=== PATIENT | male | born 1940 | race Caucasian/White ===

== ENCOUNTER 2016-06-22 22:30 | Inpatient (IN) | payer OTHER ==
[~2016-06-22] VITALS: Ht 170.2 cm; Wt 68.9 kg
[~2016-06-22 22:30] MED LIST: ALBUTEROL0.09 MG/A1 INH; AMOXICILLIN500 MG PO; BACLOFEN20 M1 PO; BOOST HIGH PRO237 ML PO; CRESTOR20 M2 PO; DOXYCYCLINE HY100 M2 PO; ENSURE HIGH PR PO; EPIPEN 2-PAK1 MG/ML IM; GLUCOSAMINE &1 EAC1 PO; HYDROMORPHONE HC2 M1 PO; LAMICTAL25 M1 PO; MORPHINE S10 MG/5 M2 PO; MULTI-DAY VITA1 EACH PO; PREDNISONE50 MG PO; TYLENOL325 M1 PO; VITAMIN D31000 UNI2 PO
--- NOTE | 2016-06-22 23:09 | ED GI/GU/ABDOMINAL COMPLAINT ---
History of Present Illness General Chief Complaint: Abdominal Pain/Flank Pain Stated Complaint: LOWER ABD PAIN Source: patient, old records Exam Limitations: no limitations Vital Signs & Intake/Output Vital Signs & Intake/Output Vital Signs Date Time Temp Pulse Resp B/P Pulse O2 O2 Flow FiO2 Ox Delivery Rate 06/23 0247 100.4 64 18 174/77 97 Room Air 06/22 2343 98 Room Air 06/22 2247 99.2 69 32 171/96 99 Room Air ED Intake and Output 06/23 0000 06/22 1200 Intake Total Output Total Balance Patient 152 lb Weight Allergies Coded Allergies: Penicillins (Severe, ANAPHYLAXIS 12/12/15) amoxicillin (Severe, ANAPHYLAXIS 12/12/15) carbamazepine (From TEGRETOL) (Severe, ANAPHYLAXIS 12/12/15) clindamycin (Intermediate, HIVES 12/12/15) Triage Note: PT TO ED C/O RT GROIN PAIN. PMH OF INGUINAL HERNIA, NOT DOING ANYTHING ABOUT IT AT THIS TIME R/T CHEMO TREATMENTS FOR RT JAW CANCER. DX WITH DIVERTICULITIS. LAST BM WAS YESTERDAY. HERNIA LARGER THAN USUAL. Triage Nurses Notes Reviewed? 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 Patient denies any excessive physical activity. Last bowel movement was yesterday no blood no melena noted. (TED GUERRERO) Reconcile Medications Dexamethasone 4 MG TABLET 4 TAB PO DAILY CHRONIC PAIN (Reported) Fentanyl 25 MCG/HOUR PATCH.TD72 1 PAT TOP Q3D CHRONIC PAIN (Reported) Furosemide (Lasix) 40 MG TABLET 1 TAB PO DAILY EDEMA (Reported) Gabapentin 100 MG CAPSULE 1 CAP PO TID CHRONIC PAIN (Reported) Lactose-Reduced Food (Boost High Protein) (Unknown Strength) LIQUID (Unknown Dose) PO DAILY SUPPLEMENT (Reported) Morphine Sulfate (Morphine Sulfate Elixir 10mg/5ml) 10 MG/5 ML SOLUTION 2.5-5 ML PO PRN PAIN (Reported) Rosuvastatin Calcium (Crestor) 20 MG TABLET 0.5 TAB PO EOD CHOLESTEROL ( Reported) (MICHEAL GU,JASON) Past History Travel History Traveled to [place] past 21 day No Medical History Any Pertinent Medical History? 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 No (TED GUERRERO) Review of Systems Review of Systems Constitutional: Reports: no symptoms. EENTM: Reports: no symptoms. Respiratory: Reports: no symptoms. Cardiovascular: Reports: no symptoms. GI: Reports: see HPI, abdominal pain. Genitourinary: Reports: no symptoms. Musculoskeletal: Reports: no symptoms. Skin: Reports: no symptoms. Neurological/Psychological: Reports: no symptoms. Hematologic/Endocrine: Reports: no symptoms. Immunologic/Allergic: Reports: no symptoms. All Other Systems: Reviewed and Negative (TED GUERRERO) Physical Exam Physical Exam General Appearance: severe distress Gastrointestinal: normal bowel sounds, soft, GENERALIZED POINT TENDERNESS NOTED Comments: Head-noted right facial swelling and mass Mouth -unable to visualize posterior pharynx due to significant trismus Neck: Supple, no lymphadenopathy, normal range of motion without pain or tenderness Back: Nontender, no CVA tenderness. Cardiovascular: Regular rate and rhythms no murmurs rubs or gallops, normal JVP Respiratory: Chest nontender. No respiratory distress.breath sounds clear to auscultation bilaterally Extremity: No edema, no calf tenderness to palpation, normal and equal pulses. Neuro: Alert oriented x3, motor sensory normal, Skin: No appreciable rash on exposed skin, skin is warm and dry. Psych: Mood and affect is normal, memory and judgment is normal. Core Measures ACS in differential dx? No Severe Sepsis Present: No Septic Shock Present: No (TED GUERRERO) Progress Differential Diagnosis: AAA, AMI, appendicitis, biliary colic, bowel obstruction , colon cancer, cholecystitis, diverticulitis, epididymitis, esophageal varices, gastritis, hepatitis, hernia, hemorrhoids, ischemic bowel, inflamm bowel dis, Gracy-Chance tear, orchitis, pancreatitis, prostatitis, peptic ulcer, PUD/GERD, perforated viscous, pyelonephritis, SBO, STD, testicular torsion, ureterolithiasis, urinary retention, urethritis, UTI/pyelo Plan of Care: Orders Procedure Date/time Status Nothing by Mouth 06/23 B Active Add-on Test (ER Only) 06/23 015 Active TYPE & SCREEN (NOT X-MATCH) 06/23 015 Complete Add-on Test (ER Only) 06/23 0113 Active Add-on Test (ER Only) 06/23 004 Active TROPONIN LEVEL 06/23 40 Active PARTIAL THROMBOPLASTIN TIME 06/22 2335 Complete PROTHROMBIN TIME 06/22 2335 Complete TROPONIN LEVEL 06/22 2334 Complete LACTIC ACID 06/22 2257 Complete COMPREHENSIVE METABOLIC PANEL 06/22 2257 Complete CBC WITHOUT DIFFERENTIAL 06/22 2257 Complete EKG 06/22 2257 Active Laboratory Tests 06/23/16157: Lactic Acid Cancelled 06/22/162335: PT 11.0, INR 1.05, APTT 39 H 06/22/162334: Anion Gap 7, Estimated GFR > 60, BUN/Creatinine Ratio 41.7 H, Glucose 79, Lactic Acid 1.0, Calcium 9.1, Total Bilirubin 0.9, AST 30, ALT 49, Alkaline Phosphatase 67, Troponin I < 0.01, Total Protein 6.3, Albumin 3.5, Globulin 2.8, Albumin/Globulin Ratio 1.3, CBC w Diff MAN DIFF ORDERED, RBC 4.51 L, MCV 90.7, MCH 29.9, RDW 17.0 H, MPV 8.4, Gran % 84.7 H, Lymphocytes % 11.9 L, Monocytes % 3.1, Eosinophils % 0.1, Basophils % 0.2, Absolute Granulocytes 5.4, Absolute Lymphocytes 0.8 L, Absolute Monocytes 0.2, Absolute Eosinophils 0, Absolute Basophils 0, Platelet Estimate ADEQUATE, Ovalocytes 1+, PUBS MCHC 32.9 L 06/22/162320: Troponin I Cancelled Patient currently is in agony on initial examination. Patient was given IV Dilaudid with minimal relief of symptoms of pain. It was noted by radiologist of significant critical findings of free air surgical PA and surgeon Dr. Hartley are aware of patient's critical status. 06/23/2016 1:50:41 AM surgical PA currently is consulting patient Anesthesia currently is consulting patient for concerns of intubation due to patient's past medical history of oral cancer Patient was given another milligram of IV Dilaudid. Nausea is under control. Rocephin and Flagyl were administered. Discussed handoff with Dr. BURTON (BROOKE HECTOR,TED) 3:26 AM PATIENT TO OR (MICHEAL GU,JASON) Diagnostic Imaging: Viewed by Me: CT Scan. Discussed w/RAD: CT Scan. Radiology Impression: acute abnormality Initial ED EKG: ACCELERATED JUNCTION RHYTHM 74 BPM Hand-Off Endorsed To: JASON BURTON MD Endorsed Time: 0152 Pending: consult Comments: PATIENT: DONG MACIAS PRESENT AGE: 76 PATIENT ACCOUNT NO: [id number] : 42 LOCATION: [facility] ORDERING PHYSICIAN: TED HECTOR SERVICE DATE: 06/22/16 EXAM TYPE: CAT - CT ABD & PELVIS W IV CONTRAST EXAMINATION: CT ABDOMEN AND PELVIS WITH CONTRAST CLINICAL INFORMATION: Right lower quadrant and inguinal pain. History of squamous cell cancer of the oral cavity. COMPARISON: CT scan abdomen pelvis 12/12/2015. PET/CT exam 06/12/2015 TECHNIQUE: Multidetector volumetric imaging was performed of the abdomen and pelvis after the IV administration of 93 mL of Optiray 320 intravenous contrast. Sagittal and coronal reformatted images were obtained on the technologist's workstation. DLP: 422.74 mGy-cm FINDINGS: LUNG BASES: 1.8 cm in lobular nodule at the left lung base. This is increased in size since CAT scan of 12/12/2015 where this nodule measured 0.6 cm. LIVER, GALLBLADDER, AND BILIARY TREE: 9 mm hypodensity anterior left lobe of liver. 1.3 cm hypodensity at the dome right lobe of liver with small peripheral calcification. These are unchanged since CAT scan of 12/22/2015. Multiple small hypodense gallstones within the gallbladder. No edema of the gallbladder wall. The extrahepatic CBD measures 0.6 cm. No stones seen within the bile ducts. PANCREAS: 1.2 cm hypodense lesion at the head neck junction of the pancreas and a 1.4 cm cyst at the uncinate process of the pancreas, both unchanged since PET/CT of 06/12/2015. No pancreatic duct dilatation. SPLEEN: Unremarkable. ADRENAL GLANDS: Unremarkable. KIDNEYS AND URETERS: The kidneys are normal in size, shape, and attenuation. No hydronephrosis, hydroureter, or calculi seen. No perinephric stranding. BLADDER: Unremarkable. GASTROINTESTINAL TRACT: Marked diverticulosis of sigmoid colon and left colon with scattered diverticula in the right colon. No diverticulitis. No focal bowel wall thickening or edema. There is a right inguinal hernia. This contains an loop of nonobstructive small bowel. No dilatation of the small bowel. MESENTERY: There is free air in the abdomen. Free air under the diaphragm and anterior abdominal mesentery. Most of the air is in the upper abdomen. No abscess. There is a small amount of haziness and fluid of the mid mesentery. ABDOMINAL WALL: No significant hernia is appreciated. LYMPH NODES: Normal. VASCULAR: Stented abdominal aortic aneurysm unchanged since prior CAT scan 12/12/2015. No abnormal enhancement. No evidence of aneurysmal leak. [place] aorta is thrombosed measuring 6.1 cm transverse maximal diameter unchanged since CAT scan of 12/12/2015. PELVIC VISCERA: Prostate measures 5.8 cm transverse. OSSEOUS STRUCTURES: Multilevel degenerative change of the spine with disc height narrowing and endplate spurs and facet joint arthrosis. IMPRESSION: 1. There is free air in the abdomen. There is a small amount of fluid and haziness of the mid mesentery but no abscess seen. There is marked diverticulosis of left colon and sigmoid but no specific bowel wall thickening to suggest a diverticulitis. There is a right inguinal hernia containing a nonobstructed small bowel loops without bowel wall thickening or edema. The source of the bowel perforation therefore is uncertain whether its related to the colonic diverticulosis or the small bowel hernia. 2. Cholelithiasis. 3. Stent abdominal aortic aneurysm. 4. Increasing size of lobular mass at the left lower lobe. Follow-up CT of chest of contrast would be helpful. This is suspected for metastatic disease given patient's history of squamous cell cancer of the oral cavity. 5. Stable cystic lesions in the pancreas. 6. Stable cystic lesions of the liver. 7. Enlarged prostate. (TED GUERRERO) Departure Departure Disposition: STILL A PATIENT Condition: Critical Clinical Impression Primary Impression: Perforated bowel Secondary Impressions: Abdominal pain Referrals: PRINCE GU,AMBER K. (PCP/Family) Departure Forms: Customer Survey General Discharge Information (TED GUERRERO) Departure Time of Disposition: 325 OR/GI Note Spoke With: TONIE ANTON DO ED Treatment Decision: DONG MACIAS requires urgent operative management or an emergent procedure that cannot be performed in the Emergency Room setting. Transport To: [facility] PA/RECONCILING CLERK Co-Sign Statement Statement: ED Attending supervision documentation- [X] I saw and evaluated the patient. I have also reviewed all the pertinent lab results and diagnostic results. I agree with the findings and the plan of care as documented in the PA's/RECONCILING CLERK's documentation. [X] I have reviewed the ED Record and agree with the PA's/RECONCILING CLERK's documentation. [] Additions or exceptions (if any) to the PAs/RECONCILING CLERK's note and plan are summarized below: [] (MICHEAL GU,JASON) Critical Care Note Critical Care Note Critical Care Time: 75-104 min (TED GUERRERO) (TED GUERRERO)
[2016-06-23 00:04] LABS: ABSOLUTE BASOPHIL COUNT 0 /CUMM (0.0-0.2); ABSOLUTE EOSINOPHIL COUNT 0 /CUMM (0.0-0.7); ABSOLUTE GRANULOCYTE CT 5.4 /CUMM (1.4-6.5); ABSOLUTE LYMPH COUNT 0.8 /CUMM (1.2-3.4); ABSOLUTE MONOCYTE COUNT 0.2 /CUMM (0.10-0.60); BASOPHIL % 0.2 % (0.0-2.0); EOSINOPHIL % 0.1 % (0-5); GRANULOCYTE % 84.7 % (42.2-75.2); HEMATOCRIT 40.9 % (42-52); MEAN CORPUSCULAR HGB 29.9 PG (27.0-31.0); MEAN CORPUSCULAR HGB CONC 32.9 G/DL (33.0-37.0); MEAN CORPUSCULAR VOLUME 90.7 FL (80.0-94.0); MEAN PLATELET VOLUME 8.4 FL (7.4-10.4); PLATELET COUNT 189 /CUMM (130-400); RED BLOOD CELL CT 4.51 /CUMM (4.70-6.10); WHITE BLOOD CELL COUNT 6.4 /CUMM (4.8-10.8)
--- NOTE | 2016-06-23 01:18 | CT SCAN REPORT ---
EXAMINATION: CT ABDOMEN AND PELVIS WITH CONTRAST CLINICAL INFORMATION: Right lower quadrant and inguinal pain. History of squamous cell cancer of the oral cavity. COMPARISON: CT scan abdomen pelvis 12/12/2015. PET/CT exam 06/12/2015 TECHNIQUE: Multidetector volumetric imaging was performed of the abdomen and pelvis after the IV administration of 93 mL of Optiray 320 intravenous contrast. Sagittal and coronal reformatted images were obtained on the technologist's workstation. DLP: 422.74 mGy-cm FINDINGS: LUNG BASES: 1.8 cm in lobular nodule at the left lung base. This is increased in size since CAT scan of 12/12/2015 where this nodule measured 0.6 cm. LIVER, GALLBLADDER, AND BILIARY TREE: 9 mm hypodensity anterior left lobe of liver. 1.3 cm hypodensity at the dome right lobe of liver with small peripheral calcification. These are unchanged since CAT scan of 12/22/2015. Multiple small hypodense gallstones within the gallbladder. No edema of the gallbladder wall. The extrahepatic CBD measures 0.6 cm. No stones seen within the bile ducts. PANCREAS: 1.2 cm hypodense lesion at the head neck junction of the pancreas and a 1.4 cm cyst at the uncinate process of the pancreas, both unchanged since PET/CT of 06/12/2015. No pancreatic duct dilatation. SPLEEN: Unremarkable. ADRENAL GLANDS: Unremarkable. KIDNEYS AND URETERS: The kidneys are normal in size, shape, and attenuation. No hydronephrosis, hydroureter, or calculi seen. No perinephric stranding. BLADDER: Unremarkable. GASTROINTESTINAL TRACT: Marked diverticulosis of sigmoid colon and left colon with scattered diverticula in the right colon. No diverticulitis. No focal bowel wall thickening or edema. There is a right inguinal hernia. This contains an loop of nonobstructive small bowel. No dilatation of the small bowel. MESENTERY: There is free air in the abdomen. Free air under the diaphragm and anterior abdominal mesentery. Most of the air is in the upper abdomen. No abscess. There is a small amount of haziness and fluid of the mid mesentery. ABDOMINAL WALL: No significant hernia is appreciated. LYMPH NODES: Normal. VASCULAR: Stented abdominal aortic aneurysm unchanged since prior CAT scan 12/12/2015. No abnormal enhancement. No evidence of aneurysmal leak. [place] aorta is thrombosed measuring 6.1 cm transverse maximal diameter unchanged since CAT scan of 12/12/2015. PELVIC VISCERA: Prostate measures 5.8 cm transverse. OSSEOUS STRUCTURES: Multilevel degenerative change of the spine with disc height narrowing and endplate spurs and facet joint arthrosis. IMPRESSION: 1. There is free air in the abdomen. There is a small amount of fluid and haziness of the mid mesentery but no abscess seen. There is marked diverticulosis of left colon and sigmoid but no specific bowel wall thickening to suggest a diverticulitis. There is a right inguinal hernia containing a nonobstructed small bowel loops without bowel wall thickening or edema. The source of the bowel perforation therefore is uncertain whether its related to the colonic diverticulosis or the small bowel hernia. 2. Cholelithiasis. 3. Stent abdominal aortic aneurysm. 4. Increasing size of lobular mass at the left lower lobe. Follow-up CT of chest of contrast would be helpful. This is suspected for metastatic disease given patient's history of squamous cell cancer of the oral cavity. 5. Stable cystic lesions in the pancreas. 6. Stable cystic lesions of the liver. 7. Enlarged prostate. This critical result was discussed with Dr. Mclain on 06/23/2016, 1:10 AM and it was ascertained that the content and urgency of the report was understood at the time of direct communication.
[2016-06-23 01:58] LABS: PTT 39 SEC (25-37)
[2016-06-23] MEDS ORDERED: GABAPENTIN100 M2 PO (02:16)
[2016-06-23] MEDS ORDERED: DEXAMETHASONE4 M1 PO (02:17)
[2016-06-23] MEDS ORDERED: FENTANYL1 EAC2 TOP (02:19)
[2016-06-23] MEDS ORDERED: LASIX40 M1 PO (02:19)
--- NOTE | 2016-06-23 02:37 | History & Physical Pre-Op ---
GERTRUDIS JAY 06/23/16 0225: General Information and HPI MD Statement: I have seen and personally examined DONG MACIAS and documented this H&P. The patient is a 76 year old M who presented with a patient stated chief complaint of [abdominal pain]. 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 Patient states that 3 hours prior to arrival he had acute onset of right lower quadrant and inguinal pain with swollen mass noted. Patient denies any excessive physical activity. Last bowel movement was yesterday no blood no melena noted. Allergies/Medications Allergies: Coded Allergies: Penicillins (Severe, ANAPHYLAXIS 12/12/15) amoxicillin (Severe, ANAPHYLAXIS 12/12/15) carbamazepine (From TEGRETOL) (Severe, ANAPHYLAXIS 12/12/15) clindamycin (Intermediate, HIVES 12/12/15) Home Med list Dexamethasone 4 MG TABLET 4 TAB PO DAILY CHRONIC PAIN (Reported) Fentanyl 25 MCG/HOUR PATCH.TD72 1 PAT TOP Q3D CHRONIC PAIN (Reported) Furosemide (Lasix) 40 MG TABLET 1 TAB PO DAILY EDEMA (Reported) Gabapentin 100 MG CAPSULE 1 CAP PO TID CHRONIC PAIN (Reported) Lactose-Reduced Food (Boost High Protein) (Unknown Strength) LIQUID (Unknown Dose) PO DAILY SUPPLEMENT (Reported) Morphine Sulfate (Morphine Sulfate Elixir 10mg/5ml) 10 MG/5 ML SOLUTION 2.5-5 ML PO PRN PAIN (Reported) Rosuvastatin Calcium (Crestor) 20 MG TABLET 0.5 TAB PO EOD CHOLESTEROL ( Reported) Past History Medical History Neurological: NONE EENT: NONE Cardiovascular: aortic aneurysm, hypertension, hyperlipidemia Respiratory: NONE Gastrointestinal: DIVERTICULOSIS Hepatic: NONE Renal: NONE Musculoskeletal: NONE Psychiatric: insomnia Endocrine: NONE Blood Disorders: NONE Cancer(s): 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 Home Who Do You Live With? spouse Smoking Status: Former Smoker Review of Systems Review of Systems Constitutional: Reports: see HPI. EENTM: Reports: no symptoms. Cardiovascular: Reports: no symptoms. Respiratory: Reports: no symptoms. GI: Reports: abdominal pain. Genitourinary: Reports: no symptoms. Musculoskeletal: Reports: no symptoms. Skin: Reports: no symptoms. Neurological/Psychological: Reports: no symptoms. Hematologic/Endocrine: Reports: no symptoms. Immunologic/Allergic: Reports: other (receiving chemotherapy). Exam & Diagnostic Data Last 24 Hrs of Vital Signs/I&O Vital Signs Date Time Temp Pulse Resp B/P Pulse O2 O2 Flow FiO2 Ox Delivery Rate 06/22 2343 98 Room Air 06/22 2247 99.2 69 32 171/96 99 Room Air Intake & Output 06/23 0800 06/23 0000 06/22 1600 Intake Total Output Total Balance Patient 152 lb Weight Physical Exam: General Appearance: severe distress Gastrointestinal: normal bowel sounds, soft, GENERALIZED POINT TENDERNESS NOTED Comments: Head-noted right facial swelling and mass Mouth -unable to visualize posterior pharynx due to significant trismus Neck: Supple, no lymphadenopathy, normal range of motion without pain or tenderness Back: Nontender, no CVA tenderness. Cardiovascular: Regular rate and rhythms no murmurs rubs or gallops, normal JVP Respiratory: Chest nontender. No respiratory distress.breath sounds clear to auscultation bilaterally Extremity: No edema, no calf tenderness to palpation, normal and equal pulses. Neuro: Alert oriented x3, motor sensory normal, Skin: No appreciable rash on exposed skin, skin is warm and dry. Psych: Mood and affect is normal, memory and judgment is normal. Diagnostic Data Other Results PATIENT: DONG MACIAS PRESENT AGE: 76 PATIENT ACCOUNT NO: [id number] : 42 LOCATION: [facility] ORDERING PHYSICIAN: TED HECTOR SERVICE DATE: 06/22/16 EXAM TYPE: CAT - CT ABD & PELVIS W IV CONTRAST EXAMINATION: CT ABDOMEN AND PELVIS WITH CONTRAST CLINICAL INFORMATION: Right lower quadrant and inguinal pain. History of squamous cell cancer of the oral cavity. COMPARISON: CT scan abdomen pelvis 12/12/2015. PET/CT exam 06/12/2015 TECHNIQUE: Multidetector volumetric imaging was performed of the abdomen and pelvis after the IV administration of 93 mL of Optiray 320 intravenous contrast. Sagittal and coronal reformatted images were obtained on the technologist's workstation. DLP: 422.74 mGy-cm FINDINGS: LUNG BASES: 1.8 cm in lobular nodule at the left lung base. This is increased in size since CAT scan of 12/12/2015 where this nodule measured 0.6 cm. LIVER, GALLBLADDER, AND BILIARY TREE: 9 mm hypodensity anterior left lobe of liver. 1.3 cm hypodensity at the dome right lobe of liver with small peripheral calcification. These are unchanged since CAT scan of 12/22/2015. Multiple small hypodense gallstones within the gallbladder. No edema of the gallbladder wall. The extrahepatic CBD measures 0.6 cm. No stones seen within the bile ducts. PANCREAS: 1.2 cm hypodense lesion at the head neck junction of the pancreas and a 1.4 cm cyst at the uncinate process of the pancreas, both unchanged since PET/CT of 06/12/2015. No pancreatic duct dilatation. SPLEEN: Unremarkable. ADRENAL GLANDS: Unremarkable. KIDNEYS AND URETERS: The kidneys are normal in size, shape, and attenuation. No hydronephrosis, hydroureter, or calculi seen. No perinephric stranding. BLADDER: Unremarkable. GASTROINTESTINAL TRACT: Marked diverticulosis of sigmoid colon and left colon with scattered diverticula in the right colon. No diverticulitis. No focal bowel wall thickening or edema. There is a right inguinal hernia. This contains an loop of nonobstructive small bowel. No dilatation of the small bowel. MESENTERY: There is free air in the abdomen. Free air under the diaphragm and anterior abdominal mesentery. Most of the air is in the upper abdomen. No abscess. There is a small amount of haziness and fluid of the mid mesentery. ABDOMINAL WALL: No significant hernia is appreciated. LYMPH NODES: Normal. VASCULAR: Stented abdominal aortic aneurysm unchanged since prior CAT scan 12/12/2015. No abnormal enhancement. No evidence of aneurysmal leak. [place] aorta is thrombosed measuring 6.1 cm transverse maximal diameter unchanged since CAT scan of 12/12/2015. PELVIC VISCERA: Prostate measures 5.8 cm transverse. OSSEOUS STRUCTURES: Multilevel degenerative change of the spine with disc height narrowing and endplate spurs and facet joint arthrosis. IMPRESSION: 1. There is free air in the abdomen. There is a small amount of fluid and haziness of the mid mesentery but no abscess seen. There is marked diverticulosis of left colon and sigmoid but no specific bowel wall thickening to suggest a diverticulitis. There is a right inguinal hernia containing a nonobstructed small bowel loops without bowel wall thickening or edema. The source of the bowel perforation therefore is uncertain whether its related to the colonic diverticulosis or the small bowel hernia. 2. Cholelithiasis. 3. Stent abdominal aortic aneurysm. 4. Increasing size of lobular mass at the left lower lobe. Follow-up CT of chest of contrast would be helpful. This is suspected for metastatic disease given patient's history of squamous cell cancer of the oral cavity. 5. Stable cystic lesions in the pancreas. 6. Stable cystic lesions of the liver. 7. Enlarged prostate. Assessment/Plan Assessment/Plan: This is a 76 year old male with significant oral cancer with metastatic lesions to brain, currently receiving chemotherapy, presenting to ER with complaints of acute onset of abdominal pain, CT imaging demonstrates free air in upper abdomen /mesentary but no definitive location of perforation. There is evidence of a non-obstructed loop of bowel in a right inguinal hernia as well as diverticulosis. -Plan for emergency exploratory laparotomy with Dr. Anton -Continue NPO -IV NS hydration -prn dilaudid for pain -Rocephin/flagyll to be given now -Will obtain medicine/cardiology consult post-operatively As Ranked By This Provider Problem List: 1. Perforated bowel 2. Abdominal pain TONIE ANTON DO 06/23/16 0627: Attending MD Review Statement Attending Statement Attending MD Statement: examined this patient, agreed w/resident/PA/LAUNDRY HOUSEKEEPER, discussed with family, reviewed EMR data (avail), reviewed images Attending Assessment/Plan: Patient with free intraperitoneal air on CT and clinically with peritonitis. Needs an emergent laparotomy. Discussed with famil/patient the need for the emergent procedure. They understand and wish to proceed.
--- NOTE | 2016-06-23 06:24 | Operative Report ---
Operative/Inv Procedure Report Surgery Date: 06/23/16 Name of Procedure: Exploratory laparotomy, abdominal washout, placement of drains Pre-Operative Diagnosis: Free intraperitoneal air/peritonitis Post-Operative Diagnosis: Perforated sigmoid diverticulosis without diverticulitis Estimated Blood Loss: less than 50ml Surgeon/Motorboat Operator: TONIE PEREZ Anesthesia: general endotracheal tube IV Fluids: 2000 cc Urine Output: 100 cc Drains: RLQ and LLQ 10 Fr ZULEIMA Drains Specimens: none Complications: none Condition: guarded Operative Indication: This is a 76-year-old male with known metastatic oropharyngeal carcinoma. Presented to the emergency room with acute onset severe abdominal pain. After appropriate workup was completed the patient was found to have free intraperitoneal air without an obvious source on a CT scan. Patient did present with peritonitis. I discussed with the patient and the family an emergent exploratory laparotomy, possible bowel resection, possible ostomy. I did explain that given the patient's metastatic carcinoma which to preserve the quality of life is much possible. All risks including but not limited to bleeding, infection, injury to surrounding bowel, and need for a possible repeat surgery were discussed in detail. The patient and the family understood everything and decided to proceed. Operative/Procedure Note Note: The patient was brought to the operating room and placed on the table in supine position. Venodyne stockings were placed and adequate general endotracheal anesthesia was obtained. A TAP block was performed by anesthesia, Almonte catheter was inserted, and the patient was prepped and draped in standard surgical fashion. A midline incision was made from just below the xiphoid to the umbilicus. It was carried down through the subcutaneous tissue to the fascia, the fascia was opened and the peritoneum was entered. Upon entering the peritoneum there was a gush of air however, no purulent or feculent fluid was noted. The fascia was opened the length of the incision using Bovie electrocautery. Some fibrinous exudate was noted. We then began exploring the abdomen. The stomach was examined and no obvious perforations were noted. First and second part of the duodenum were examined and no obvious perforations were noted. The small bowel was run from the ligament of Treitz to the ileocecal valve and once again no obvious perforations were noted. Right inguinal hernia was examined and no obvious abnormalities were noted. Throughout our exploration there was no obvious purulent or feculent fluid, only some serosanguinous fluid was noted throughout the abdomen. The cecum and mesoappendix were examined and once again no obvious perforations were noted. We then brought our attention to the left side and the descending colon was examined down to the sigmoid colon and the rectum. Of note throughout the whole colon there was hard stool. Several areas along the sigmoid colon were noted to be adhesed to the surrounding peritoneum at sites of diverticula. Innumerable diverticula were noted throughout the descending and the sigmoid colon. Upon close inspection of the distal sigmoid colon a tiny perforation was noted in what appeared to be a moderate sized diverticulum. No obvious penetration into the colon was noted, as there was no purulent or feculent fluid in the area. Abdomen was irrigated with approximately 5-6 L of warm normal saline. At that point, given the patient's metastatic carcinoma, quality of life, what appeared to be a sealed perforation, and based on a discussion that was held intraoperatively by my PA with the family, a decision was made to not resect the colon and bring out an ostomy but to washout the abdomen and leave drains. After the abdomen was adequately washed out, 2 x 10 Spanish ZULEIMA drains were placed into the pelvis one through the right lower quadrant and the other through the left lower quadrant. The omentum was draped over the sigmoid colon. Of note a questionable liver metastasis was palpated on the dome of the right lobe of the liver. The fascia was then closed using 0 looped Maxon suture in a running fashion. The wound was irrigated. Skin was closed using sammy spread far apart to allow for drainage in case of infection. Sterile dressings were placed. The patient was transferred to the intensive care unit intubated. The patient tolerated the procedure well with no complications. Findings: small perforation from diverticulum in sigmoid colon, no diverticulitis, no purulent/feculent peritonitis, constipation CC: PRINCE GU,AMBER Naylor
--- NOTE | 2016-06-23 07:06 | RADIOLOGY REPORT ---
EXAMINATION: XR PORTABLE CHEST CLINICAL INFORMATION: Abdominal pain. Status post exploratory laparotomy for perforated diverticulum. COMPARISON: 06/22/2016 TECHNIQUE: Portable AP view of the chest was obtained at 20 degrees upright. FINDINGS: Cardiac leads overlie the chest. The endotracheal tube terminates 3 cm above the uri. Right chest wall port terminates near the cavoatrial junction. Enteric tube in place extending into the stomach. The lungs are well expanded. No consolidation, edema, or effusion. No pneumothorax. The cardiomediastinal silhouette is normal in size. No acute osseous abnormality. Free intraperitoneal air is not visualized on this study, possibly related to the near supine technique. IMPRESSION: Clear lungs.
--- NOTE | 2016-06-23 07:27 | Cons- CRCU ---
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 On initial presentation, vitals were remarkable only for elevated blood pressure of 171/96. CBC and BMP were unremarkable. LFTs were within normal limits. CT Abdomen/Pelvis was performed which showed free air in the abdomen with a small amount of fluid, marked diverticulosis the left colon without any evidence of diverticulitis and a right inguinal hernia containing nonobstructed small bowel loops without bowel thickening of edema. Patient was started on ceftriaxone and Flagyl and taken to the OR emergently for exploratory laporotomy with abdominal washout and drain placement which revealed a perforated diverticulosis that was sealed off and not requiring bowel resection. Patient remained intubated post- operatively and was transferred to the ICU. Allergies/Medications Allergies: Coded Allergies: Penicillins (Severe, ANAPHYLAXIS 12/12/15) amoxicillin (Severe, ANAPHYLAXIS 12/12/15) carbamazepine (From TEGRETOL) (Severe, ANAPHYLAXIS 12/12/15) clindamycin (Intermediate, HIVES 12/12/15) Home Med List: Dexamethasone 4 MG TABLET 1 TAB PO DAILY CHRONIC PAIN (Reported) Fentanyl 25 MCG/HOUR PATCH.TD72 1 PAT TOP Q3D CHRONIC PAIN (Reported) Furosemide (Lasix) 40 MG TABLET 1 TAB PO DAILY EDEMA (Reported) Gabapentin 100 MG CAPSULE 1 CAP PO TID CHRONIC PAIN (Reported) Lactose-Reduced Food (Boost High Protein) (Unknown Strength) LIQUID (Unknown Dose) PO DAILY SUPPLEMENT (Reported) Morphine Sulfate (Morphine Sulfate Elixir 10mg/5ml) 10 MG/5 ML SOLUTION 2.5-5 ML PO PRN PAIN (Reported) Rosuvastatin Calcium (Crestor) 20 MG TABLET 0.5 TAB PO EOD CHOLESTEROL ( Reported) Current Medications: Current Medications Sig/Lisa Start time Last Medication Dose Route Stop Time Status Admin Acetaminophen 1,000 MG Q6P PRN 06/23 0600 AC N/A 1 UNIT IV Atorvastatin Calcium 40 MG 1700 06/23 1700 DC PO Atorvastatin Calcium 40 MG [id number]@[id number] 06/23 1700 AC PO Cefazolin Sodium 1,000 MG .STK-MED ONE 06/23 0814 DC IV 06/23 0815 Ceftriaxone Sodium 1,000 MG DAILY 06/24 1000 CAN IV Ceftriaxone Sodium 1,000 MG DAILY 06/24 1000 CAN IV 06/25 0959 Ceftriaxone Sodium 1,000 MG 2200 06/23 2200 AC IV Ceftriaxone Sodium 1,000 MG ONCE ONE 06/23 0130 DC 06/23 IV 06/23 0131 0140 Ceftriaxone Sodium 0 .STK-MED ONE 06/23 0130 DC .ROUTE Dexamethasone 4 MG DAILY 06/24 1000 AC Dextrose/Water 50 ML IV Dexamethasone 4 MG Q6 06/23 1200 DC Dextrose/Water 50 ML IV Dexamethasone 16 MG DAILY 06/23 1000 DC PO Fat Emulsion 200 ML 1900 06/23 1900 AC 06/23 Intravenous IV 06/24 1859 2008 Fentanyl Citrate 25 MCG Q72H 06/23 1415 AC 06/23 TOP 1855 Fentanyl Citrate 1,000 MCG Q8H 06/23 1330 DC Dextrose/Water 250 ML IV Fentanyl Citrate 1,000 MCG Q24H 06/23 0630 DC 06/23 Dextrose/Water 250 ML IV 0640 Fentanyl Citrate 1,000 MCG .STK-MED ONE 06/23 0627 DC IM 06/23 0628 Fentanyl Citrate 25 MCG Q3D 06/23 0600 DC TOP Gabapentin 100 MG Q8 06/23 1413 AC PO Heparin Sodium 5,000 UNIT Q8 06/23 0600 AC 06/23 (Porcine) SC 1400 Hydromorphone HCl 1 MG ONCE ONE 06/23 0130 DC 06/23 IV 06/23 0131 0140 Hydromorphone HCl 0 .STK-MED ONE 06/23 0130 DC .ROUTE Hydromorphone HCl 1 MG ONCE ONE 06/22 2330 DC 06/22 IV 06/22 2331 2340 Hydromorphone HCl 0 .STK-MED ONE 06/22 233 DC .ROUTE Insulin Human Regular 0 Q6 06/23 1800 AC 06/23 SC 1855 Lorazepam 2 MG .STK-MED ONE 06/23 1301 DC IM 06/23 1302 Metronidazole 500 MG Q8H 06/23 1000 AC 06/23 N/A 1 UNIT IV 1854 Metronidazole 500 MG IQ8 06/23 0800 DC N/A 1 UNIT IV 06/24 0759 Metronidazole 500 MG ONCE ONE 06/23 0130 DC 06/23 N/A 1 UNIT IV 06/23 0229 0212 Morphine Sulfate 10 MG Q6P PRN 06/23 1415 AC PO Morphine Sulfate 2 MG Q3P PRN 06/23 0600 AC 06/23 IV 1852 Pantoprazole Sodium 40 MG DAILY 06/23 1043 AC 06/23 IV 1200 Patient Medication 1 UNIT 1700 06/23 1700 DC Teaching ED 06/23 1701 Patient Medication 1 UNIT ONE NR 06/23 1430 DC Teaching ED 06/23 2030 Patient Medication 1 UNIT ONE NR 06/23 0815 IL Teaching ED 06/23 1415 Potassium Chloride 10 MEQ ONCE ONE 06/23 1445 DC 06/23 IV 06/23 1446 1600 Potassium Chloride 10 MEQ Q1H 06/23 1115 DC 06/23 IV 06/23 1216 1400 Potassium Chloride 20 MEQ .Q10H 06/23 0545 DC 06/23 Dextrose/Sodium 1,000 ML IV 0900 Chloride Sodium Chloride 1,000 ML BOLUS ONE 06/23 0130 DC 06/23 IV 06/23 0229 0140 Total Parenteral 1 UNIT 1900 06/23 1900 AC 06/23 Nutrition IV 06/24 1859 2007 Review of Systems Review of Systems Constitutional: Reports: see HPI. EENTM: Reports: no symptoms. Cardiovascular: Reports: no symptoms. Respiratory: Reports: no symptoms. GI: Reports: abdominal pain. Genitourinary: Reports: no symptoms. Musculoskeletal: Reports: no symptoms. Skin: Reports: no symptoms. Neurological/Psychological: Reports: no symptoms. Hematologic/Endocrine: Reports: no symptoms. Immunologic/Allergic: Reports: no symptoms. 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 Home Who Do You Live With? spouse Smoking Status: Former Smoker Exam & Diagnostic Data Last 24 Hrs of Vital Signs/I&O Vital Signs Date Time Temp Pulse Resp B/P Pulse O2 O2 Flow FiO2 Ox Delivery Rate 06/23 2206 30 06/23 1925 30 06/23 1600 30 06/23 1600 98.2 70 20 160/80 94 Ventilator 40% 06/23 1600 94 Ventilator 40% 06/23 1433 30 06/23 1305 30 06/23 1200 94 Ventilator 40% 06/23 0839 40 06/23 0800 99.2 68 20 170/90 94 Ventilator 40% 06/23 0800 96 Ventilator 40% 06/23 0619 40 06/23 0247 100.4 64 18 174/77 97 Room Air 06/22 2343 98 Room Air 06/22 2247 99.2 69 32 171/96 99 Room Air Intake & Output 06/23 1600 06/23 0800 06/23 0000 Intake Total 890 Output Total 730 Balance 160 Intake, IV 890 Output, 90 Drainage Output, Urine 640 Patient 68.946 kg 68.946 kg Weight Physical Exam General Appearance: alert, awake, comfortable, intubated Head: swelling noted on right face Ears, Nose, Throat: ET tube in place Respiratory: no respiratory distress, lungs clear Cardiovascular: regular rate/rhythm, no murmurs, rubs or gallops Gastrointestinal: soft, tenderness to palpation most pronounced in right lower quadrant, positive bowel sounds, no guarding or rebound Extremities: no edema Neurologic/Psych: no focal deficits noted Skin: normal color, warm/dry Last 48 Hrs of Labs/Robbin: Laboratory Tests 06/23/16 0930: Anion Gap 7, Estimated GFR > 60, BUN/Creatinine Ratio 32.0 H, Glucose 101 H, Calcium 7.9 L, Phosphorus 3.2, Magnesium 1.8, Total Bilirubin 0.8, Prealbumin 19.0, Triglycerides 44, Cholesterol 95, CBC w Diff MAN DIFF ORDERED, RBC 3.95 L , MCV 90.1, MCH 29.9, RDW 16.7 H, MPV 8.3, Gran % 93.7 H, Lymphocytes % 4.9 L , Monocytes % 1.4 L, Eosinophils % 0, Basophils % 0 L, Absolute Granulocytes 11.0 H, Segmented Neutrophils 71, Band Neutrophils 24 H, Absolute Lymphocytes 0.6 L, Lymphocytes 5 L, Absolute Monocytes 0.2, Absolute Eosinophils 0, Absolute Basophils 0, Anisocytosis 1+, PUBS MCHC 33.2 06/23/16 0823: pH 7.51 H, pCO2 36, pO2 156 H, HCO3 28, ABG O2 Sat (Measured) 99.0, P-50 (Temp Corrected) YES, Carboxyhemoglobin 0.9 L, O2 Concentration % 40%, Temperature 99.2, Respiration Rate 16, O2 Delivery Method VENT, Vent Mode AC, Expiratory Pressure 5, Tidal Volume 500, Phlebotomy Draw Site LEFT A LINE 06/23/16 0158: Lactic Acid Cancelled 06/22/16 2336: PT 11.0, INR 1.05, APTT 39 H 06/22/16 2335: Anion Gap 7, Estimated GFR > 60, BUN/Creatinine Ratio 41.7 H, Glucose 79, Lactic Acid 1.0, Calcium 9.1, Total Bilirubin 0.9, AST 30, ALT 49, Alkaline Phosphatase 67, Troponin I < 0.01, Total Protein 6.3, Albumin 3.5, Globulin 2.8, Albumin/Globulin Ratio 1.3, CBC w Diff MAN DIFF ORDERED, RBC 4.51 L, MCV 90.7, MCH 29.9, RDW 17.0 H, MPV 8.4, Gran % 84.7 H, Lymphocytes % 11.9 L, Monocytes % 3.1, Eosinophils % 0.1, Basophils % 0.2, Absolute Granulocytes 5.4, Absolute Lymphocytes 0.8 L, Absolute Monocytes 0.2, Absolute Eosinophils 0, Absolute Basophils 0, Platelet Estimate ADEQUATE, Ovalocytes 1+, PUBS MCHC 32.9 L 06/22/16 2321: Troponin I Cancelled Diagnostic Data CXR Results Clear lungs. Other Results CT ABDOMEN/PELVIS 1. There is free air in the abdomen. There is a small amount of fluid and haziness of the mid mesentery but no abscess seen. There is marked diverticulosis of left colon and sigmoid but no specific bowel wall thickening to suggest a diverticulitis. There is a right inguinal hernia containing a nonobstructed small bowel loops without bowel wall thickening or edema. The source of the bowel perforation therefore is uncertain whether its related to the colonic diverticulosis or the small bowel hernia. 2. Cholelithiasis. 3. Stent abdominal aortic aneurysm. 4. Increasing size of lobular mass at the left lower lobe. Follow-up CT of chest of contrast would be helpful. This is suspected for metastatic disease given patient's history of squamous cell cancer of the oral cavity. 5. Stable cystic lesions in the pancreas. 6. Stable cystic lesions of the liver. 7. Enlarged prostate. 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 Respiratory: #Mechanical ventilation: Remains intubated post-operatively but is awake and alert. Current vent settings are VC mode, tidal volume 500, FiO2 30%, RR 16 and PEEP 5. * Fentanyl IV drip discontinued. * Attempt weaning trials this evening. * Protonix 40 mg IV daily for GI PPx. Infectious: #Perforated sigmoid diverticulosis: Afebrile on initial presentation but spiked low grade fevers to 100.4 pre-op. Has remained afebrile post-op. WBC count has slightly increased from 6.4 to 11.7 post-op. Exploratory laparotomy revealed a perforated diverticulosis which was felt to be sealed and decision was made not to proceed with a resection and ostomy. * ID following. Appreciate their recs. * Surgery following. Appreciate their recs. * Continue ceftriaxone 1 g IV QD and Flagyl 500 mg IV Q8H. Will most likely require 5-7 day course of antibiotics per ID. * Remove Almonte catheter once patient is successfully extubated. * BCx, UCx and sputum Cx pending. #Cardiovascular: Hemodynamically stable. #Hematology: H/H stable but with sligt drop to 11.8/35.3 from 13/5/40.9 post- operatively. #Metabolic: Replete to K > 4, Mg > 2 and Phos > 3. #Alimentary: TPN #Neurologic: AAO x3. No issues. #Metastatic squamous cell carcinoma of the mouth: * Patient was seen by Oncologist Dr. Rivera who suggested continuing the current postoperative management per ICU and surgery teams. * Continue home gabapentin 100 mg PO BID, fentanyl 25 mcg patch and morphine for pain. * Continue prior to admission dexamethasone 4 mg daily that patient was on for inflammation. DVT PPx: HSQ and ALPs CODE: FULL Consult Acknowledgment - Thank you for your consult request. Cyndy STILL MD 06/23/16 0844: General Information and HPI Consulting Request Date of Consult: 06/23/16 Requested By: Dr. Hartley Reason for Consult: Perforated viscus, status post exploratory laparotomy with respiratory failure. Source of Information: old records Exam Limitations: intubated Assessment/Plan Other Findings/Comments: I have personally seen and examined the patient and agree with the resident's assessment as above. 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 The patient presented to the emergency department with right lower quadrant and inguinal pain. He underwent a CT scan of the abdomen and pelvis that demonstrated free air in the abdomen with a small amount of fluid. The CAT scan also showed increasing size of the lobular mass in the left lower lobe. The patient was taken to the OR and underwent an exploratory laparotomy for perforated viscus. He remains intubated post op, but he is awake and alert on mechanical ventilation. Impression: 1. S/P ex laporotomy for perforated viscus. 2. Metastatic head and neck cancer. 3. Increasing left lower lobe lung nodule consistent with metastatic disease. 4. Chronic pain. 5. History of abdominal aortic aneurysm. 6. Multiple comorbidities including hypertension, hyperlipidemia, and inguinal hernias. Plan: * Will attempt weaning trials for extubation this morning. * Decrease fentanyl drip to 100 g per hour. * Monitor respiratory status closely while on high-dose fentanyl. * Continue ceftriaxone and Flagyl. * Please check pancultures - blood, urine and sputum. * Oncology consult - patient known to Dr. Sanchez. * Continue dexamethasone - patient is on steroids chronically. * DVT/GI prophylaxis. * Continue all supportive care. Consult Acknowledgment - Thank you for your consult request.
[2016-06-23 08:00] VITALS: BP 170/90
--- NOTE | 2016-06-23 09:02 | Cons- Oncology ---
General Information and HPI Consulting Request Date of Consult: 06/23/16 Requested By: TONIE ANTON DO Reason for Consult: SCC of H&N Source of Information: old records Exam Limitations: clinical condition History of Present Illness: Mr. Forbes is a 76-year-old with metastatic squamous cell carcinoma of the mouth on nivolumab who presented with sudden onset abdominal pain. He was found to have free air in the abdomen on CT scan. He was taken to OR for emergent exploratory laparotomy. He is now in the ICU recovering. Allergies/Medications Allergies: Coded Allergies: Penicillins (Severe, ANAPHYLAXIS 12/12/15) amoxicillin (Severe, ANAPHYLAXIS 12/12/15) carbamazepine (From TEGRETOL) (Severe, ANAPHYLAXIS 12/12/15) clindamycin (Intermediate, HIVES 12/12/15) Home Med List: Dexamethasone 4 MG TABLET 4 TAB PO DAILY CHRONIC PAIN (Reported) Fentanyl 25 MCG/HOUR PATCH.TD72 1 PAT TOP Q3D CHRONIC PAIN (Reported) Furosemide (Lasix) 40 MG TABLET 1 TAB PO DAILY EDEMA (Reported) Gabapentin 100 MG CAPSULE 1 CAP PO TID CHRONIC PAIN (Reported) Lactose-Reduced Food (Boost High Protein) (Unknown Strength) LIQUID (Unknown Dose) PO DAILY SUPPLEMENT (Reported) Morphine Sulfate (Morphine Sulfate Elixir 10mg/5ml) 10 MG/5 ML SOLUTION 2.5-5 ML PO PRN PAIN (Reported) Rosuvastatin Calcium (Crestor) 20 MG TABLET 0.5 TAB PO EOD CHOLESTEROL ( Reported) Current Medications: Current Medications Sig/Lisa Start time Last Medication Dose Route Stop Time Status Admin Acetaminophen 1,000 MG Q6P PRN 06/23 0600 AC N/A 1 UNIT IV Atorvastatin Calcium 40 MG 1700 06/23 1700 AC PO Cefazolin Sodium 1,000 MG .STK-MED ONE 06/23 0814 DC IV 06/23 0815 Ceftriaxone Sodium 1,000 MG DAILY 06/24 1000 AC IV Ceftriaxone Sodium 1,000 MG DAILY 06/24 1000 CAN IV 06/25 0959 Ceftriaxone Sodium 1,000 MG ONCE ONE 06/23 0130 DC 06/23 IV 06/23 0131 0140 Ceftriaxone Sodium 0 .STK-MED ONE 06/23 0130 DC .ROUTE Dexamethasone 16 MG DAILY 06/23 1000 AC PO Fentanyl Citrate 1,000 MCG Q24H 06/23 0630 AC 06/23 Dextrose/Water 250 ML IV 0640 Fentanyl Citrate 25 MCG Q3D 06/23 0600 DC TOP Heparin Sodium 5,000 UNIT Q8 06/23 0600 AC (Porcine) SC Hydromorphone HCl 1 MG ONCE ONE 06/23 0130 DC 06/23 IV 06/23 0131 0140 Hydromorphone HCl 0 .STK-MED ONE 06/23 0130 DC .ROUTE Hydromorphone HCl 1 MG ONCE ONE 06/22 2330 DC 06/22 IV 06/22 233 2340 Hydromorphone HCl 0 .STK-MED ONE 06/22 233 DC .ROUTE Insulin Human Regular 0 Q6 06/23 1800 AC SC Metronidazole 500 MG Q8H 06/23 1000 AC N/A 1 UNIT IV Metronidazole 500 MG IQ8 06/23 0800 DC N/A 1 UNIT IV 06/24 0759 Metronidazole 500 MG ONCE ONE 06/23 0130 DC 06/23 N/A 1 UNIT IV 06/23 0229 0212 Morphine Sulfate 2 MG Q3P PRN 06/23 0600 AC IV Patient Medication 1 UNIT ONE NR 06/23 0815 Teaching ED 06/23 1415 Potassium Chloride 20 MEQ .Q10H 06/23 0545 AC Dextrose/Sodium 1,000 ML IV Chloride Sodium Chloride 1,000 ML BOLUS ONE 06/23 0130 DC 06/23 IV 06/23 0229 0140 Review of Systems Review of Systems: Unable to obtain due to intubation Past History Travel History Traveled to [place] past 21 day No Medical History Neurological: NONE EENT: NONE Cardiovascular: aortic aneurysm, hypertension, hyperlipidemia Respiratory: NONE Gastrointestinal: DIVERTICULOSIS Hepatic: NONE Renal: NONE Musculoskeletal: NONE Psychiatric: insomnia Endocrine: NONE Blood Disorders: NONE 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 Home Who Do You Live With? spouse Smoking Status: Former Smoker Exam & Diagnostic Data Vital Signs and I&O Vital Signs Date Time Temp Pulse Resp B/P Pulse O2 O2 Flow FiO2 Ox Delivery Rate 06/23 0839 40 06/23 0619 40 06/23 0247 100.4 64 18 174/77 97 Room Air 06/22 2343 98 Room Air 06/22 2247 99.2 69 32 171/96 99 Room Air Intake & Output 06/23 1600 06/23 0800 06/23 0000 Intake Total Output Total Balance Patient 69 kg 68.946 kg Weight Physical Exam General Appearance: intubated, mild distress Head: atraumatic, normal appearance Eyes: Bilateral: PERRL. Ears, Nose, Throat: ET tube in place Neck: normal inspection Respiratory: normal breath sounds, chest non-tender, no respiratory distress Cardiovascular: regular rate/rhythm Gastrointestinal: soft, tenderness, midline incision with dressing on top; no acute drainage; drains in place. Extremities: normal inspection Skin: normal color Last 48 Hours of Lab Results: Laboratory Tests 06/23 06/23 06/22 0823 0158 2336 Blood Gas pH (7.35 - 7.45 PH) 7.51 H pCO2 (35 - 45 TORR) 36 pO2 (80 - 100 TORR) 156 H HCO3 (21 - 28 MEQ/L) 28 ABG O2 Sat (Measured) (>96.0 %) 99.0 P-50 (Temp Corrected) YES Carboxyhemoglobin (1.5 - 5.0 %) 0.9 L O2 Concentration % 40% Temperature (97.0 - 100.0 FARH) 99.2 Respiration Rate (BPM) 16 O2 Delivery Method VENT Vent Mode AC Expiratory Pressure (CMH2O/P) 5 Tidal Volume (CC) 500 Chemistry Lactic Acid Cancelled Coagulation PT (9.4 - 12.5 SEC) 11.0 INR (0.90 - 1.17) 1.05 APTT (25 - 37 SEC) 39 H Miscellaneous Phlebotomy Draw Site LEFT A LINE 06/22 06/22 [id number] Chemistry Sodium (137 - 145 mmol/L) 141 Potassium (3.5 - 5.1 mmol/L) 3.7 Chloride (98 - 107 mmol/L) 94 L Carbon Dioxide (22 - 30 mmol/L) 39 H Anion Gap (5 - 16) 7 BUN (9 - 20 mg/dL) 25 H Creatinine (0.7 - 1.2 mg/dL) 0.6 L Estimated GFR (>60 ml/min) > 60 BUN/Creatinine Ratio (7 - 25 %) 41.7 H Glucose (65 - 99 mg/dL) 79 Lactic Acid (0.7 - 2.1 mmol/L) 1.0 Calcium (8.4 - 10.2 mg/dL) 9.1 Total Bilirubin (0.2 - 1.3 mg/dL) 0.9 AST (17 - 59 U/L) 30 ALT (21 - 72 U/L) 49 Alkaline Phosphatase (< 127 U/L) 67 Troponin I (<0.11 ng/ml) < 0.01 Cancelled Total Protein (6.3 - 8.2 g/dL) 6.3 Albumin (3.5 - 5.0 g/dL) 3.5 Globulin (1.9 - 4.2 gm/dL) 2.8 Albumin/Globulin Ratio (1.1 - 2.2 %) 1.3 Hematology CBC w Diff MAN DIFF ORDERED WBC (4.8 - 10.8 /CUMM) 6.4 RBC (4.70 - 6.10 /CUMM) 4.51 L Hgb (14.0 - 18.0 G/DL) 13.5 L Hct (42 - 52 %) 40.9 L MCV (80.0 - 94.0 FL) 90.7 MCH (27.0 - 31.0 PG) 29.9 RDW (11.5 - 14.5 %) 17.0 H Plt Count (130 - 400 /CUMM) 189 MPV (7.4 - 10.4 FL) 8.4 Gran % (42.2 - 75.2 %) 84.7 H Lymphocytes % (20.5 - 51.1 %) 11.9 L Monocytes % (1.7 - 9.3 %) 3.1 Eosinophils % (0 - 5 %) 0.1 Basophils % (0.0 - 2.0 %) 0.2 Absolute Granulocytes (1.4 - 6.5 /CUMM) 5.4 Absolute Lymphocytes (1.2 - 3.4 /CUMM) 0.8 L Absolute Monocytes (0.10 - 0.60 /CUMM) 0.2 Absolute Eosinophils (0.0 - 0.7 /CUMM) 0 Absolute Basophils (0.0 - 0.2 /CUMM) 0 Platelet Estimate (ADEQUATE) ADEQUATE Ovalocytes 1+ PUBS MCHC (33.0 - 37.0 G/DL) 32.9 L Imaging/Other Studies: CT abdomen/pelvis 06/22/2016: 1. There is free air in the abdomen. There is a small amount of fluid and haziness of the mid mesentery but no abscess seen. There is marked diverticulosis of left colon and sigmoid but no specific bowel wall thickening to suggest a diverticulitis. There is a right inguinal hernia containing a nonobstructed small bowel loops without bowel wall thickening or edema. The source of the bowel perforation therefore is uncertain whether its related to the colonic diverticulosis or the small bowel hernia. 2. Cholelithiasis. 3. Stent abdominal aortic aneurysm. 4. Increasing size of lobular mass at the left lower lobe. Follow-up CT of chest of contrast would be helpful. This is suspected for metastatic disease given patient's history of squamous cell cancer of the oral cavity. 5. Stable cystic lesions in the pancreas. 6. Stable cystic lesions of the liver. 7. Enlarged prostate. Assessment/Plan Assessment: Mr. Forbes is a 76-year-old male with metastatic SCC of the mouth who is currently get nivolumab who presents with perforated sigmoid diverticulosis without signs of diverticulitis. He is now status post exploratory laparotomy, abdominal washout, and drain placement. The perforation was sealed and decision was to not do a resection with ostomy. Washout and drains were done. He tolerated the procedure well. He is now intubated in the ICU. Vitals are stable. Recommendations: 1. Postoperative management as per surgery and ICU team 2. Continue current antibiotic coverage Problem List: 1. Perforated bowel Other Findings/Comments: Please call [phone] with any questions or concerns Consult Acknowledgment - Thank you for your consult request.
[2016-06-23 10:05] LABS: ABSOLUTE BASOPHIL COUNT 0 /CUMM (0.0-0.2); ABSOLUTE EOSINOPHIL COUNT 0 /CUMM (0.0-0.7); ABSOLUTE LYMPH COUNT 0.6 /CUMM (1.2-3.4); ABSOLUTE MONOCYTE COUNT 0.2 /CUMM (0.10-0.60); BASOPHIL % 0 % (0.0-2.0); EOSINOPHIL % 0 % (0-5); GRANULOCYTE % 93.7 % (42.2-75.2); MEAN CORPUSCULAR HGB 29.9 PG (27.0-31.0); MEAN CORPUSCULAR HGB CONC 33.2 G/DL (33.0-37.0); MEAN CORPUSCULAR VOLUME 90.1 FL (80.0-94.0); MEAN PLATELET VOLUME 8.3 FL (7.4-10.4); PLATELET COUNT 137 /CUMM (130-400); RBC DISTRIBUTION WIDTH 16.7 % (11.5-14.5); RED BLOOD CELL CT 3.95 /CUMM (4.70-6.10)
[2016-06-23 10:35] LABS: WHITE BLOOD CELL COUNT 11.7 /CUMM (4.8-10.8)
[2016-06-23 10:36] LABS: HEMATOCRIT 35.5 % (42-52)
--- NOTE | 2016-06-23 13:17 | Cons- Infect Disease ---
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 On admission he was afebrile. Laboratory data revealed a white blood cell count of 6000, with atypical/reactive lymphs, BUN/creatinine 25 and 0.6, with normal liver enzymes. PTT 39. CT of the abdomen and pelvis revealed free air in the abdomen with no evidence of an abscess, no evidence of diverticulitis and with a right inguinal hernia containing nonobstructed small bowel loops without bowel wall thickening or edema; cholelithiasis, stented abdominal aortic aneurysm, increasing size of a lobular mass at the left lower lobe and an enlarged prostate. He did develop a temperature to 100.4. He was begun on Ceftriaxone and Flagyl and taken to the OR for an exploratory laparotomy and abdominal washout, with perforated sigmoid diverticulosis noted, with no diverticulitis. No bowel resection was performed. He was kept intubated and transferred to the ICU. Presently he feels mild discomfort in the lower abdomen but is otherwise without complaints. Allergies/Medications Allergies: Coded Allergies: Penicillins (Severe, ANAPHYLAXIS 12/12/15) amoxicillin (Severe, ANAPHYLAXIS 12/12/15) carbamazepine (From TEGRETOL) (Severe, ANAPHYLAXIS 12/12/15) clindamycin (Intermediate, HIVES 12/12/15) Home Med List: Dexamethasone 4 MG TABLET 4 TAB PO DAILY CHRONIC PAIN (Reported) Fentanyl 25 MCG/HOUR PATCH.TD72 1 PAT TOP Q3D CHRONIC PAIN (Reported) Furosemide (Lasix) 40 MG TABLET 1 TAB PO DAILY EDEMA (Reported) Gabapentin 100 MG CAPSULE 1 CAP PO TID CHRONIC PAIN (Reported) Lactose-Reduced Food (Boost High Protein) (Unknown Strength) LIQUID (Unknown Dose) PO DAILY SUPPLEMENT (Reported) Morphine Sulfate (Morphine Sulfate Elixir 10mg/5ml) 10 MG/5 ML SOLUTION 2.5-5 ML PO PRN PAIN (Reported) Rosuvastatin Calcium (Crestor) 20 MG TABLET 0.5 TAB PO EOD CHOLESTEROL ( Reported) Past History Travel History Traveled to [place] past 21 day No Medical History Neurological: NONE EENT: NONE Cardiovascular: aortic aneurysm, hypertension, hyperlipidemia Respiratory: NONE Gastrointestinal: DIVERTICULOSIS Hepatic: NONE Renal: NONE Musculoskeletal: NONE Psychiatric: insomnia Endocrine: NONE Blood Disorders: NONE 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 Home Who Do You Live With? spouse Smoking Status: Former Smoker Review of Systems Review of Systems All Other Systems: Reviewed and Negative Exam & Diagnostic Data Last 24 Hrs of Vital Signs/I&O Vital Signs Date Time Temp Pulse Resp B/P Pulse O2 O2 Flow FiO2 Ox Delivery Rate 06/23 0839 40 06/23 0619 40 06/23 0247 100.4 64 18 174/77 97 Room Air 06/22 2343 98 Room Air 06/22 2247 99.2 69 32 171/96 99 Room Air Intake & Output 06/23 1600 06/23 0800 06/23 0000 Intake Total Output Total Balance Patient 152 lb 152 lb Weight Physical Exam Other Physical Findings: He is awake and alert in no acute distress. MAXIMUM TEMPERATURE 100.4. Skin reveals no rash. HEENT exam swelling and induration of the right side of his face. Neck is supple with no adenopathy. Chest Port-A-Cath in the right upper chest with no inflammation at the site. Lungs are clear. Heart regular rhythm with no murmur. Abdomen is soft, tender on palpation over the lower abdomen, with positive bowel sounds; [address] Back no CVA tenderness. Extremities right foot swelling, with 1+ pulses, with no cyanosis or clubbing. Neuro is without focality. Almonte catheter is in place. Last 24 Hours of Lab Results: Laboratory Tests 06/23 06/23 0930 0823 Blood Gas pH (7.35 - 7.45 PH) 7.51 H pCO2 (35 - 45 TORR) 36 pO2 (80 - 100 TORR) 156 H HCO3 (21 - 28 MEQ/L) 28 ABG O2 Sat (Measured) (>96.0 %) 99.0 P-50 (Temp Corrected) YES Carboxyhemoglobin (1.5 - 5.0 %) 0.9 L O2 Concentration % 40% Temperature (97.0 - 100.0 FARH) 99.2 Respiration Rate (BPM) 16 O2 Delivery Method VENT Vent Mode AC Expiratory Pressure (CMH2O/P) 5 Tidal Volume (CC) 500 Chemistry Sodium (137 - 145 mmol/L) 135 L Potassium (3.5 - 5.1 mmol/L) 3.3 L Chloride (98 - 107 mmol/L) 99 Carbon Dioxide (22 - 30 mmol/L) 29 Anion Gap (5 - 16) 7 BUN (9 - 20 mg/dL) 16 Creatinine (0.7 - 1.2 mg/dL) 0.5 L Estimated GFR (>60 ml/min) > 60 BUN/Creatinine Ratio (7 - 25 %) 32.0 H Glucose (65 - 99 mg/dL) 101 H Calcium (8.4 - 10.2 mg/dL) 7.9 L Phosphorus (2.5 - 4.5 mg/dL) 3.2 Magnesium (1.6 - 2.3 mg/dL) 1.8 Total Bilirubin (0.2 - 1.3 mg/dL) 0.8 Prealbumin (17.6 - 36.0 mg/dL) 19.0 Triglycerides (<150 mg/dL) 44 Cholesterol (< 200 MG/DL) 95 Hematology CBC w Diff MAN DIFF ORDERED WBC (4.8 - 10.8 /CUMM) 11.7 H RBC (4.70 - 6.10 /CUMM) 3.95 L Hgb (14.0 - 18.0 G/DL) 11.8 L Hct (42 - 52 %) 35.5 L MCV (80.0 - 94.0 FL) 90.1 MCH (27.0 - 31.0 PG) 29.9 RDW (11.5 - 14.5 %) 16.7 H Plt Count (130 - 400 /CUMM) 137 MPV (7.4 - 10.4 FL) 8.3 Gran % (42.2 - 75.2 %) 93.7 H Lymphocytes % (20.5 - 51.1 %) 4.9 L Monocytes % (1.7 - 9.3 %) 1.4 L Eosinophils % (0 - 5 %) 0 Basophils % (0.0 - 2.0 %) 0 L Absolute Granulocytes (1.4 - 6.5 /CUMM) 11.0 H Segmented Neutrophils (42.2 - 75.2 %) 71 Band Neutrophils (0.0 - 5.0 %) 24 H Absolute Lymphocytes (1.2 - 3.4 /CUMM) 0.6 L Lymphocytes (20.5 - 51.1 %) 5 L Absolute Monocytes (0.10 - 0.60 /CUMM) 0.2 Absolute Eosinophils (0.0 - 0.7 /CUMM) 0 Absolute Basophils (0.0 - 0.2 /CUMM) 0 Anisocytosis 1+ PUBS MCHC (33.0 - 37.0 G/DL) 33.2 Miscellaneous Phlebotomy Draw Site LEFT A LINE 06/23 06/22 06/22 0158 2336 2335 Chemistry Sodium (137 - 145 mmol/L) 141 Potassium (3.5 - 5.1 mmol/L) 3.7 Chloride (98 - 107 mmol/L) 94 L Carbon Dioxide (22 - 30 mmol/L) 39 H Anion Gap (5 - 16) 7 BUN (9 - 20 mg/dL) 25 H Creatinine (0.7 - 1.2 mg/dL) 0.6 L Estimated GFR (>60 ml/min) > 60 BUN/Creatinine Ratio (7 - 25 %) 41.7 H Glucose (65 - 99 mg/dL) 79 Lactic Acid (0.7 - 2.1 mmol/L) Cancelled 1.0 Calcium (8.4 - 10.2 mg/dL) 9.1 Total Bilirubin (0.2 - 1.3 mg/dL) 0.9 AST (17 - 59 U/L) 30 ALT (21 - 72 U/L) 49 Alkaline Phosphatase (< 127 U/L) 67 Troponin I (<0.11 ng/ml) < 0.01 Total Protein (6.3 - 8.2 g/dL) 6.3 Albumin (3.5 - 5.0 g/dL) 3.5 Globulin (1.9 - 4.2 gm/dL) 2.8 Albumin/Globulin Ratio (1.1 - 2.2 %) 1.3 Coagulation PT (9.4 - 12.5 SEC) 11.0 INR (0.90 - 1.17) 1.05 APTT (25 - 37 SEC) 39 H Hematology CBC w Diff MAN DIFF ORDERED WBC (4.8 - 10.8 /CUMM) 6.4 RBC (4.70 - 6.10 /CUMM) 4.51 L Hgb (14.0 - 18.0 G/DL) 13.5 L Hct (42 - 52 %) 40.9 L MCV (80.0 - 94.0 FL) 90.7 MCH (27.0 - 31.0 PG) 29.9 RDW (11.5 - 14.5 %) 17.0 H Plt Count (130 - 400 /CUMM) 189 MPV (7.4 - 10.4 FL) 8.4 Gran % (42.2 - 75.2 %) 84.7 H Lymphocytes % (20.5 - 51.1 %) 11.9 L Monocytes % (1.7 - 9.3 %) 3.1 Eosinophils % (0 - 5 %) 0.1 Basophils % (0.0 - 2.0 %) 0.2 Absolute Granulocytes (1.4 - 6.5 /CUMM) 5.4 Absolute Lymphocytes (1.2 - 3.4 /CUMM) 0.8 L Absolute Monocytes (0.10 - 0.60 /CUMM) 0.2 Absolute Eosinophils (0.0 - 0.7 /CUMM) 0 Absolute Basophils (0.0 - 0.2 /CUMM) 0 Platelet Estimate (ADEQUATE) ADEQUATE Ovalocytes 1+ PUBS MCHC (33.0 - 37.0 G/DL) 32.9 L 06/22 2321 Chemistry Troponin I Cancelled Last 24 Hours of Robbin Results: Urine culture June 23 pending Diagnostic Data Recent Imaging Findings: CT of the abdomen and pelvis revealed free air in the abdomen with no evidence of an abscess, no evidence of diverticulitis and with a right inguinal hernia containing nonobstructed small bowel loops without bowel wall thickening or edema; cholelithiasis, stented abdominal aortic aneurysm, increasing size of a lobular mass at the left lower lobe and an enlarged prostate Chest x-ray June 23 negative Assessment/Plan Assessment/Plan Impression: This is a 76-year-old man with metastatic squamous cell of the mouth, diagnosed 2 years prior to admission, status post surgery, radiation and chemotherapy in the past and currently on Opdivo, most recently 10 days prior to admission, admitted on June 22 with the acute onset of right groin/right lower quadrant pain and swelling, found on CT of the abdomen and pelvis to have free air, now status post exploratory laparotomy with findings of a perforated diverticulosis, felt to have sealed off and not requiring resection. He will likely require a 5 to 7 day course of antibiotics for this perforation. No OR (or blood) cultures were sent, but, as he has tolerated the Ceftriaxone (despite the Penicillin allergy) this can be continued along with the Flagyl. Of note he does not appear to have become neutropenic from the Opdivo, with his white blood cell count slightly elevated today postop. Suggestion: 1. Remove Almonte catheter 2. Would discuss dose/taper of steroids with Oncology 3. Continue Ceftriaxone and Flagyl Consult Acknowledgment - Thank you for your consult request.
[2016-06-23 16:00] VITALS: BP 160/80
[2016-06-24] VITALS: BP 164/82
[2016-06-24 05:23] LABS: ABSOLUTE BASOPHIL COUNT 0 /CUMM (0.0-0.2); ABSOLUTE EOSINOPHIL COUNT 0 /CUMM (0.0-0.7); ABSOLUTE GRANULOCYTE CT 8.6 /CUMM (1.4-6.5); ABSOLUTE LYMPH COUNT 0.7 /CUMM (1.2-3.4); ABSOLUTE MONOCYTE COUNT 0.2 /CUMM (0.10-0.60); BASOPHIL % 0 % (0.0-2.0); EOSINOPHIL % 0.3 % (0-5); GRANULOCYTE % 89.9 % (42.2-75.2); HEMATOCRIT 36.6 % (42-52); MEAN CORPUSCULAR HGB CONC 33.2 G/DL (33.0-37.0); MEAN CORPUSCULAR VOLUME 90.2 FL (80.0-94.0); MEAN PLATELET VOLUME 8.3 FL (7.4-10.4); PLATELET COUNT 144 /CUMM (130-400); RBC DISTRIBUTION WIDTH 16.9 % (11.5-14.5); RED BLOOD CELL CT 4.06 /CUMM (4.70-6.10); WHITE BLOOD CELL COUNT 9.6 /CUMM (4.8-10.8)
--- NOTE | 2016-06-24 05:48 | PN- General Surgery ---
Subjective Subjective: The patient was seen this morning postoperatively day #1. He complains of abdominal soreness but is otherwise comfortable. He denies any nausea, flatus or bowel function. He has no other complaints of current time and is eager to be extubated. Objective Vital Signs and I&Os Vital Signs Date Time Temp Pulse Resp B/P Pulse O2 O2 Flow FiO2 Ox Delivery Rate 06/24 0339 30 06/24 0111 30 06/23 2206 30 06/23 1925 30 06/23 1600 30 06/23 1600 98.2 70 20 160/80 94 Ventilator 40% 06/23 1600 94 Ventilator 40% 06/23 1433 30 06/23 1305 30 06/23 1200 94 Ventilator 40% 06/23 0839 40 06/23 0800 99.2 68 20 170/90 94 Ventilator 40% 06/23 0800 96 Ventilator 40% 06/23 0619 40 Intake & Output 06/24 0800 06/24 0000 06/23 1600 06/23 0800 06/23 0000 06/22 1600 Intake Total 890 Output Total 730 Balance 160 Intake, IV 890 Output, 90 Drainage Output, Urine 640 Patient 152 lb 152 lb Weight Physical Exam: Gen.: Alert and in no obvious distress Skin: Warm and dry Cardiac: S1-S2 regular Pulmonary: Bilateral breath sounds are equal and slightly decreased at bases with some upper respiratory congestion and transmitted ventilator noises Abdomen: Softly distended, appropriate incisional tenderness, bowel sounds sluggish. Surgical dressing is blood-tinged otherwise intact. There are 2 JPs holding suction serous sinus drainage and bulbs. Extremities: Bilateral lower extremities are warm without calf tenderness or significant edema. Assessment/Plan Assessment/Plan Assessment: 76-year-old male status post exploratory laparotomy for perforated viscus postoperative day #1. The patient is progressing as expected and he has yet to show signs of bowel function. Plan: Follow-up morning labs Continue to advance TPN Keep nothing by mouth with NG tube decompression JPs to self suction Continue IV antibiotics Total respiratory care, continue weaning trials If extubated out of bed to chair GI and DVT prophylaxis PRN antiemetics, antipyretics and pain medications Follow-up pulmonary, critical care, oncology, and infectious disease consultation recommendations Core Measures/Miscellaneous Venous Thromboembolism VTE Risk Factors: Age > 40, Cancer/chemo/oth therapy, Surgery VTE Contraindications: No Contraindications VTE Prophylaxis Ordered Inpt Mech & Pharm VTE Diagnosis: No Beta Angela Is Beta Angela a Home Med? No Antibiotics Is Patient on Antibiotics? Yes If Yes: infection
--- NOTE | 2016-06-24 06:32 | RADIOLOGY REPORT ---
EXAMINATION: XR PORTABLE CHEST CLINICAL INFORMATION: Intubation. COMPARISON: Chest x-ray 06/23/2016 TECHNIQUE: Portable AP portable view of the chest was obtained. 6:03 AM FINDINGS: Free air under right diaphragm again noted. Lungs are clear. No pulmonary vascular congestion or pleural effusion. Endotracheal tube catheter possibly 5 cm above the uri. Central port catheter tip in superior vena cava. IMPRESSION: Endotracheal tube catheter 5 cm above the uri. Lungs clear. Free air under right diaphragm.
--- NOTE | 2016-06-24 07:18 | PN- Oncology ---
Subjective Subjective: Intubated, complaining of abdominal pain Review of Systems: 12 point review of systems essentially unobtainable Objective Vital Signs and I&Os Vital Signs Date Time Temp Pulse Resp B/P Pulse O2 O2 Flow FiO2 Ox Delivery Rate 06/24 0548 30 06/24 0339 30 06/24 0111 30 06/23 2206 30 06/23 1925 30 06/23 1600 30 06/23 1600 98.2 70 20 160/80 94 Ventilator 40% 06/23 1600 94 Ventilator 40% 06/23 1433 30 06/23 1305 30 06/23 1200 94 Ventilator 40% 06/23 0839 40 06/23 0800 99.2 68 20 170/90 94 Ventilator 40% 06/23 0800 96 Ventilator 40% Intake & Output 06/24 0800 06/24 0000 06/23 1600 06/23 0800 06/23 0000 06/22 1600 Intake Total 890 Output Total 730 Balance 160 Intake, IV 890 Output, 90 Drainage Output, Urine 640 Patient 152 lb 152 lb Weight Gen.: in NAD ENT: Sclera anicteric, right lid droop, mass unchanged Chest: Normal respiratory effort, decreased breath sounds Cor: RRR, no extra sounds Abdomen: Soft, bowel sounds markedly diminished, postop Extremities: Without clubbing, cyanosis, or edema Neurology: Alert and oriented 3, no gross deficit Skin: No rashes Current Medications: Current Medications Sig/Lisa Start time Last Medication Dose Route Stop Time Status Admin Acetaminophen 1,000 MG Q6P PRN 06/23 0600 AC 06/24 N/A 1 UNIT IV 0548 Atorvastatin Calcium 40 MG 1700 06/23 1700 DC PO Atorvastatin Calcium 40 MG [id number] 06/23 1700 AC PO Cefazolin Sodium 1,000 MG .STK-MED ONE 06/23 0814 DC IV 06/23 0815 Ceftriaxone Sodium 1,000 MG DAILY 06/24 1000 CAN IV Ceftriaxone Sodium 1,000 MG 2200 06/23 2200 AC 06/23 IV 2232 Dexamethasone 4 MG DAILY 06/24 1000 AC Dextrose/Water 50 ML IV Dexamethasone 4 MG Q6 06/23 1200 DC Dextrose/Water 50 ML IV Dexamethasone 16 MG DAILY 06/23 1000 DC PO Fat Emulsion 200 ML 1900 06/23 1900 AC 06/23 Intravenous IV 06/24 1859 2008 Fentanyl Citrate 25 MCG Q72H 06/23 1415 AC 06/23 TOP 1855 Fentanyl Citrate 1,000 MCG Q8H 06/23 1330 DC Dextrose/Water 250 ML IV Fentanyl Citrate 1,000 MCG Q24H 06/23 0630 DC 06/23 Dextrose/Water 250 ML IV 0640 Gabapentin 100 MG Q8 06/23 1413 AC PO Heparin Sodium 5,000 UNIT Q8 06/23 0600 AC 06/24 (Porcine) SC 0600 Insulin Human Regular 0 Q6 06/23 1800 AC 06/24 SC 0604 Lorazepam 2 MG .STK-MED ONE 06/23 1301 DC IM 06/23 1302 Magnesium Sulfate 1 GM ONCE ONE 06/24 0600 AC Dextrose/Water 100 ML IV 06/24 0959 Metronidazole 500 MG Q8H 06/23 1000 AC 06/24 N/A 1 UNIT IV 0153 Metronidazole 500 MG IQ8 06/23 0800 DC N/A 1 UNIT IV 06/24 0759 Morphine Sulfate 10 MG Q6P PRN 06/23 1415 AC PO Morphine Sulfate 2 MG Q3P PRN 06/23 0600 AC 06/24 IV 0417 Pantoprazole Sodium 40 MG DAILY 06/23 1043 06/23 IV 1200 Patient Medication 1 UNIT 1700 06/23 1700 WI Teaching ED 06/23 1701 Patient Medication 1 UNIT ONE NR 06/23 1430 WI Teaching ED 06/23 2030 Patient Medication 1 UNIT ONE NR 06/23 0815 WI Teaching ED 06/23 1415 Potassium Chloride 20 MEQ ONCE ONE 06/24 0600 CAN IV 06/24 0601 Potassium Chloride 10 MEQ Q1H 06/24 0600 DC 06/24 IV 06/24 0701 0600 Potassium Chloride 10 MEQ ONCE ONE 06/23 1445 WI 06/23 IV 06/23 1446 1600 Potassium Chloride 10 MEQ Q1H 06/23 1115 WI 06/23 IV 06/23 1216 1400 Potassium Chloride 20 MEQ .Q10H 06/23 0545 WI 06/23 Dextrose/Sodium 1,000 ML IV 0900 Chloride Total Parenteral 1 UNIT 1900 06/23 1900 AC 06/23 Nutrition IV 06/24 1859 2007 Results Last 24 Hours of Lab Results: Laboratory Tests 06/24 06/23 0440 UNK Chemistry Sodium (137 - 145 mmol/L) 134 L Potassium (3.5 - 5.1 mmol/L) 3.3 L Chloride (98 - 107 mmol/L) 101 Carbon Dioxide (22 - 30 mmol/L) 26 Anion Gap (5 - 16) 7 BUN (9 - 20 mg/dL) 13 Creatinine (0.7 - 1.2 mg/dL) 0.5 L Estimated GFR (>60 ml/min) > 60 Glucose (65 - 99 mg/dL) 116 H Calcium (8.4 - 10.2 mg/dL) 8.1 L Phosphorus (2.5 - 4.5 mg/dL) 2.7 Magnesium (1.6 - 2.3 mg/dL) 1.8 Total Bilirubin (0.2 - 1.3 mg/dL) 0.9 AST (17 - 59 U/L) 20 Cancelled ALT (21 - 72 U/L) 35 Cancelled Alkaline Phosphatase Cancelled Albumin (3.5 - 5.0 g/dL) 2.5 L Cancelled Hematology CBC w Diff MAN DIFF ORDERED WBC (4.8 - 10.8 /CUMM) 9.6 RBC (4.70 - 6.10 /CUMM) 4.06 L Hgb (14.0 - 18.0 G/DL) 12.2 L Hct (42 - 52 %) 36.6 L MCV (80.0 - 94.0 FL) 90.2 MCH (27.0 - 31.0 PG) 30.0 RDW (11.5 - 14.5 %) 16.9 H Plt Count (130 - 400 /CUMM) 144 MPV (7.4 - 10.4 FL) 8.3 Gran % (42.2 - 75.2 %) 89.9 H Lymphocytes % (20.5 - 51.1 %) 7.6 L Monocytes % (1.7 - 9.3 %) 2.2 Eosinophils % (0 - 5 %) 0.3 Basophils % (0.0 - 2.0 %) 0 L Absolute Granulocytes (1.4 - 6.5 /CUMM) 8.6 H Absolute Lymphocytes (1.2 - 3.4 /CUMM) 0.7 L Absolute Monocytes (0.10 - 0.60 /CUMM) 0.2 Absolute Eosinophils (0.0 - 0.7 /CUMM) 0 Absolute Basophils (0.0 - 0.2 /CUMM) 0 Platelet Estimate (ADEQUATE) ADEQUATE Hypochromic-Microcytic 2+ PUBS MCHC (33.0 - 37.0 G/DL) 33.2 06/23 06/23 0930 0823 Blood Gas pH (7.35 - 7.45 PH) 7.51 H pCO2 (35 - 45 TORR) 36 pO2 (80 - 100 TORR) 156 H HCO3 (21 - 28 MEQ/L) 28 ABG O2 Sat (Measured) (>96.0 %) 99.0 P-50 (Temp Corrected) YES Carboxyhemoglobin (1.5 - 5.0 %) 0.9 L O2 Concentration % 40% Temperature (97.0 - 100.0 FARH) 99.2 Respiration Rate (BPM) 16 O2 Delivery Method VENT Vent Mode AC Expiratory Pressure (CMH2O/P) 5 Tidal Volume (CC) 500 Chemistry Sodium (137 - 145 mmol/L) 135 L Potassium (3.5 - 5.1 mmol/L) 3.3 L Chloride (98 - 107 mmol/L) 99 Carbon Dioxide (22 - 30 mmol/L) 29 Anion Gap (5 - 16) 7 BUN (9 - 20 mg/dL) 16 Creatinine (0.7 - 1.2 mg/dL) 0.5 L Estimated GFR (>60 ml/min) > 60 BUN/Creatinine Ratio (7 - 25 %) 32.0 H Glucose (65 - 99 mg/dL) 101 H Calcium (8.4 - 10.2 mg/dL) 7.9 L Phosphorus (2.5 - 4.5 mg/dL) 3.2 Magnesium (1.6 - 2.3 mg/dL) 1.8 Total Bilirubin (0.2 - 1.3 mg/dL) 0.8 Prealbumin (17.6 - 36.0 mg/dL) 19.0 Triglycerides (<150 mg/dL) 44 Cholesterol (< 200 MG/DL) 95 Hematology CBC w Diff MAN DIFF ORDERED WBC (4.8 - 10.8 /CUMM) 11.7 H RBC (4.70 - 6.10 /CUMM) 3.95 L Hgb (14.0 - 18.0 G/DL) 11.8 L Hct (42 - 52 %) 35.5 L MCV (80.0 - 94.0 FL) 90.1 MCH (27.0 - 31.0 PG) 29.9 RDW (11.5 - 14.5 %) 16.7 H Plt Count (130 - 400 /CUMM) 137 MPV (7.4 - 10.4 FL) 8.3 Gran % (42.2 - 75.2 %) 93.7 H Lymphocytes % (20.5 - 51.1 %) 4.9 L Monocytes % (1.7 - 9.3 %) 1.4 L Eosinophils % (0 - 5 %) 0 Basophils % (0.0 - 2.0 %) 0 L Absolute Granulocytes (1.4 - 6.5 /CUMM) 11.0 H Segmented Neutrophils (42.2 - 75.2 %) 71 Band Neutrophils (0.0 - 5.0 %) 24 H Absolute Lymphocytes (1.2 - 3.4 /CUMM) 0.6 L Lymphocytes (20.5 - 51.1 %) 5 L Absolute Monocytes (0.10 - 0.60 /CUMM) 0.2 Absolute Eosinophils (0.0 - 0.7 /CUMM) 0 Absolute Basophils (0.0 - 0.2 /CUMM) 0 Anisocytosis 1+ PUBS MCHC (33.0 - 37.0 G/DL) 33.2 Miscellaneous Phlebotomy Draw Site LEFT A LINE Assessment/Plan Assessment/Recommendations: 1. Bowel perforation-resume secondary to diverticulitis not Opdivo Recommend- As per surgery 2. Advanced head and neck cancer-? Progression Agree with tapered steroids to dose on admission Overall prognosis poor
--- NOTE | 2016-06-24 07:19 | PN- Resident CRCU ---
Subjective HPI/CRCU Issues: No acute events overnight. He is doing well exploratory laparotomy post-op day # 1. He is awake and alert and communicating via writing. He continues to have intermittent abdominal pain. He has not passed flatus or had a bowel movement. He remains intubated and on mechanical ventilation day #2 with the following vent settings: VC mode, tidal volume 500, FiO2 30%, RR 16 and PEEP 5. He remains afebrile and hemodynamically stable with good urine output. Objective Vital Signs & I&O Last 8 Hrs of Vitals and I&O: Vital Signs Date Time Temp Pulse Resp B/P Pulse O2 O2 Flow FiO2 Ox Delivery Rate 06/24 0548 30 06/24 0400 98 Ventilator 30% 06/24 0339 30 06/24 0111 30 06/24 0000 99.4 68 16 164/82 100 Ventilator 30% 06/24 0000 100 Ventilator 30% 06/23 2206 30 06/23 2000 100 Ventilator 30% 06/23 1925 30 06/23 1600 30 06/23 1600 98.2 70 20 160/80 94 Ventilator 40% 06/23 1600 94 Ventilator 40% 06/23 1433 30 06/23 1305 30 06/23 1200 94 Ventilator 40% Exam General Appearance: no apparent distress, alert, awake, intubated Head: right face swollen and indurated Ears, Nose, Throat: ET tube in place Respiratory: no respiratory distress, lungs clear Cardiovascular: regular rate/rhythm, normal S1 and S2, no murmurs, rubs or gallops Gastrointestinal: soft, tenderness to palpation most pronounced on lower abdomen , no guarding or rebound, positive bowel sounds Extremities: no edema, no clubbing or cyanosis Skin: normal color, warm/dry Current Medications: Current Medications Sig/Lisa Start time Last Medication Dose Route Stop Time Status Admin Acetaminophen 1,000 MG Q6P PRN 06/23 0600 AC 06/24 N/A 1 UNIT IV 0548 Atorvastatin Calcium 40 MG 06/23 170 DC PO Atorvastatin Calcium 40 MG MoWeFr@06/23 1700 AC PO Ceftriaxone Sodium 1,000 MG DAILY 06/24 1000 CAN IV Ceftriaxone Sodium 1,000 MG 06/23 2200 AC 06/23 IV 2232 Dexamethasone 4 MG DAILY 06/24 1000 AC 06/24 Dextrose/Water 50 ML IV 0915 Dexamethasone 4 MG Q6 06/23 1200 DC Dextrose/Water 50 ML IV Dexamethasone 16 MG DAILY 06/23 1000 DC PO Fat Emulsion 300 ML 1900 06/24 1900 AC Intravenous IV 06/25 1859 Fat Emulsion 200 ML 1900 06/23 1900 DC 06/23 Intravenous IV 06/24 1859 2008 Fat Emulsion 200 ML 1900 06/23 1900 AC Intravenous IV 06/24 1859 Fentanyl Citrate 25 MCG Q72H 06/23 1415 AC 06/23 TOP 1855 Fentanyl Citrate 1,000 MCG Q8H 06/23 1330 DC Dextrose/Water 250 ML IV Fentanyl Citrate 1,000 MCG Q24H 06/23 0630 DC 06/23 Dextrose/Water 250 ML IV 0640 Gabapentin 100 MG Q8 06/23 1413 AC PO Heparin Sodium 5,000 UNIT Q8 06/23 0600 AC 06/24 (Porcine) SC 0600 Insulin Human Regular 0 Q6 06/23 1800 AC 06/24 SC 0604 Lorazepam 2 MG .STK-MED ONE 06/23 1301 DC IM 06/23 1302 Magnesium Sulfate 1 GM ONCE ONE 06/24 0600 06/24 Dextrose/Water 100 ML IV 06/24 0959 0911 Metronidazole 500 MG Q8H 06/23 1000 AC 06/24 N/A 1 UNIT IV 0153 Morphine Sulfate 2 MG Q8P PRN 06/24 0815 AC IV Morphine Sulfate 10 MG Q6P PRN 06/23 1415 AC PO Morphine Sulfate 2 MG Q3P PRN 06/23 0600 AC 06/24 IV 0417 Pantoprazole Sodium 40 MG DAILY 06/23 1043 AC 06/24 IV 0911 Patient Medication 1 UNIT 1700 06/23 1700 [place] Teaching ED 06/23 1701 Patient Medication 1 UNIT ONE NR 06/23 1430 WA Teaching ED 06/23 2030 Patient Medication 1 UNIT ONE NR 06/23 0815 WA Teaching ED 06/23 1415 Potassium Chloride 10 MEQ ONCE ONE 06/24 0915 CAN IV 06/24 0916 Potassium Chloride 20 MEQ ONCE ONE 06/24 0600 CAN IV 06/24 0601 Potassium Chloride 10 MEQ Q1H 06/24 0600 [place] 06/24 IV 06/24 0701 0911 Potassium Chloride 10 MEQ ONCE ONE 06/23 1445 DC 06/23 IV 06/23 1446 1600 Potassium Chloride 10 MEQ Q1H 06/23 1115 [place] 06/23 IV 06/23 1216 1400 Potassium Chloride 20 MEQ .Q10H 06/23 0545 DC 06/23 Dextrose/Sodium 1,000 ML IV 0900 Chloride Total Parenteral 1 UNIT 06/24 AC Nutrition IV 06/25 1858 Total Parenteral 1 UNIT 06/23 AC 06/23 Nutrition IV 06/24 Results Results: Laboratory Tests 06/24 06/24 0915 0440 Blood Gas pH (7.35 - 7.45 PH) 7.48 H pCO2 (35 - 45 TORR) 39 pO2 (80 - 100 TORR) 119 H HCO3 (21 - 28 MEQ/L) 28 ABG O2 Sat (Measured) (>96.0 %) 98.0 Carboxyhemoglobin (1.5 - 5.0 %) 0.3 L O2 Concentration % 30% Temperature (97.0 - 100.0 FARH) 99.4 O2 Delivery Method VENT Vent Mode CPAP Expiratory Pressure (CMH2O/P) 5 Pressure Support (CMH2O/P) 6 Chemistry Sodium (137 - 145 mmol/L) 134 L Potassium (3.5 - 5.1 mmol/L) 3.3 L Chloride (98 - 107 mmol/L) 101 Carbon Dioxide (22 - 30 mmol/L) 26 Anion Gap (5 - 16) 7 BUN (9 - 20 mg/dL) 13 Creatinine (0.7 - 1.2 mg/dL) 0.5 L Estimated GFR (>60 ml/min) > 60 Glucose (65 - 99 mg/dL) 116 H Calcium (8.4 - 10.2 mg/dL) 8.1 L Phosphorus (2.5 - 4.5 mg/dL) 2.7 Magnesium (1.6 - 2.3 mg/dL) 1.8 Total Bilirubin (0.2 - 1.3 mg/dL) 0.9 AST (17 - 59 U/L) 20 ALT (21 - 72 U/L) 35 Albumin (3.5 - 5.0 g/dL) 2.5 L Hematology CBC w Diff MAN DIFF ORDERED WBC (4.8 - 10.8 /CUMM) 9.6 RBC (4.70 - 6.10 /CUMM) 4.06 L Hgb (14.0 - 18.0 G/DL) 12.2 L Hct (42 - 52 %) 36.6 L MCV (80.0 - 94.0 FL) 90.2 MCH (27.0 - 31.0 PG) 30.0 RDW (11.5 - 14.5 %) 16.9 H Plt Count (130 - 400 /CUMM) 144 MPV (7.4 - 10.4 FL) 8.3 Gran % (42.2 - 75.2 %) 89.9 H Lymphocytes % (20.5 - 51.1 %) 7.6 L Monocytes % (1.7 - 9.3 %) 2.2 Eosinophils % (0 - 5 %) 0.3 Basophils % (0.0 - 2.0 %) 0 L Absolute Granulocytes (1.4 - 6.5 /CUMM) 8.6 H Absolute Lymphocytes (1.2 - 3.4 /CUMM) 0.7 L Absolute Monocytes (0.10 - 0.60 /CUMM) 0.2 Absolute Eosinophils (0.0 - 0.7 /CUMM) 0 Absolute Basophils (0.0 - 0.2 /CUMM) 0 Platelet Estimate (ADEQUATE) ADEQUATE Hypochromic-Microcytic 2+ PUBS MCHC (33.0 - 37.0 G/DL) 33.2 Miscellaneous Phlebotomy Draw Site LEFT RADIAL 06/23 UNK Chemistry AST Cancelled ALT Cancelled Alkaline Phosphatase Cancelled Albumin Cancelled UCx (06/23/16): NGTD BCx (06/23/16): NGTD x2 CXR Findings: Endotracheal tube catheter 5 cm above the uri. Lungs clear. Free air under right diaphragm. 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 Problem List: 1. Sigmoid diverticulosis 2. Perforation of large intestine 3. Squamous cell carcinoma of mouth 4. S/P exploratory laparotomy 5. On mechanically assisted ventilation Pain Ratin Tomorrow's Labs & Rationales: CBC and ICU patient (ICU bundle) Plan Respiratory: Remains intubated and on mechanical ventilation. Current vent settings are VC mode, tidal volume 500, FiO2 30%, RR 16 and PEEP 5. * Attempt weaning trials with the hope of extubating today. * Protonix 40 mg IV daily for GI PPx. Infectious Diseases: #Perforated sigmoid diverticulosis: Remains afebrile. Mild leukocytosis yesterday has resolved. On day 2 of ceftriaxone and Flagyl. * ID following. Appreciate their recs. * Surgery following. Appreciate their recs. * Continue ceftriaxone 1 g IV QD and Flagyl 500 mg IV Q8H. Will most likely require 5-7 day course of antibiotics per ID. * Remove Almonte catheter once patient is successfully extubated if parameters are acceptable. Cardiovascular: Hemodynamically stable. Hematology: H/H stable post-op, 36.6 today. Metabolic: Replete to K > 4, Mg > 2 and Phos > 3. Alimentary: TPN Neurological: AAO x3. No issues. 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 Appreciate their recs. * Continue home gabapentin 100 mg PO BID, fentanyl 25 mcg patch and morphine for pain. * Continue prior to admission dexamethasone 4 mg daily for inflammation.
[2016-06-24 08:00] VITALS: BP 160/80
--- NOTE | 2016-06-24 08:54 | PN- CRCU ---
Subjective HPI/Critical Care Issues: The patient is awake and alert. He is communicating by writing. He remains intubated, on mechanical ventilation. His respiratory status is stable, noting that he is now on 30% oxygen. His MAXIMUM TEMPERATURE over the past 24 hours was 99.4. He continues to have good urine output. He is off the fentanyl drip and now on his home dose of fentanyl patch. He has intermittent abdominal pain for which he has received morphine and Tylenol. There were no further overnight events reported. Objective Current Medications: Current Medications Sig/Lias Start time Last Medication Dose Route Stop Time Status Admin Acetaminophen 1,000 MG Q6P PRN 06/23 0600 AC 06/24 N/A 1 UNIT IV 0548 Atorvastatin Calcium 40 MG 1700 06/23 1700 DC PO Atorvastatin Calcium 40 MG MoWeFr@1700 06/23 1700 AC PO Ceftriaxone Sodium 1,000 MG DAILY 06/24 1000 CAN IV Ceftriaxone Sodium 1,000 MG 2200 06/23 2200 AC 06/23 IV 2232 Dexamethasone 4 MG DAILY 06/24 1000 AC Dextrose/Water 50 ML IV Dexamethasone 4 MG Q6 06/23 1200 DC Dextrose/Water 50 ML IV Dexamethasone 16 MG DAILY 06/23 1000 DC PO Fat Emulsion 200 ML 1900 06/23 1900 AC 06/23 Intravenous IV 06/24 1859 2008 Fentanyl Citrate 25 MCG Q72H 06/23 1415 AC 06/23 TOP 1855 Fentanyl Citrate 1,000 MCG Q8H 06/23 1330 DC Dextrose/Water 250 ML IV Fentanyl Citrate 1,000 MCG Q24H 06/23 0630 DC 06/23 Dextrose/Water 250 ML IV 0640 Gabapentin 100 MG Q8 06/23 1413 AC PO Heparin Sodium 5,000 UNIT Q8 06/23 0600 AC 06/24 (Porcine) SC 0600 Insulin Human Regular 0 Q6 06/23 1800 AC 06/24 SC 0604 Lorazepam 2 MG .STK-MED ONE 06/23 1301 DC IM 06/23 1302 Magnesium Sulfate 1 GM ONCE ONE 06/24 0600 AC Dextrose/Water 100 ML IV 06/24 0959 Metronidazole 500 MG Q8H 06/23 1000 AC 06/24 N/A 1 UNIT IV 0153 Morphine Sulfate 2 MG Q8P PRN 06/24 0815 AC IV Morphine Sulfate 10 MG Q6P PRN 06/23 1415 AC PO Morphine Sulfate 2 MG Q3P PRN 06/23 0600 AC 06/24 IV 0417 Pantoprazole Sodium 40 MG DAILY 06/23 1043 AC 06/23 IV 1200 Patient Medication 1 UNIT 1700 06/23 1700 SC Teaching ED 06/23 1701 Patient Medication 1 UNIT ONE NR 06/23 1430 SC Teaching ED 06/23 2030 Patient Medication 1 UNIT ONE NR 06/23 0815 [facility] ED 06/23 1415 Potassium Chloride 20 MEQ ONCE ONE 06/24 0600 CAN IV 06/24 0601 Potassium Chloride 10 MEQ Q1H 06/24 0600 DC 06/24 IV 06/24 0701 0600 Potassium Chloride 10 MEQ ONCE ONE 06/23 1445 DC 06/23 IV 06/23 1446 1600 Potassium Chloride 10 MEQ Q1H 06/23 1115 DC 06/23 IV 06/23 1216 1400 Potassium Chloride 20 MEQ .Q10H 06/23 0545 DC 06/23 Dextrose/Sodium 1,000 ML IV 0900 Chloride Total Parenteral 1 UNIT 1900 06/23 1900 AC 06/23 Nutrition IV 06/24 1859 2007 Vital Signs & I&O Last 24 Hrs of Vitals and I&O: Vital Signs Date Time Temp Pulse Resp B/P Pulse O2 O2 Flow FiO2 Ox Delivery Rate 06/24 0548 30 06/24 0400 98 Ventilator 30% 06/24 0339 30 06/24 0111 30 06/24 0000 99.4 68 16 164/82 100 Ventilator 30% 06/24 0000 100 Ventilator 30% 06/23 2206 30 06/23 2000 100 Ventilator 30% 06/23 1925 30 06/23 1600 30 06/23 1600 98.2 70 20 160/80 94 Ventilator 40% 06/23 1600 94 Ventilator 40% 06/23 1433 30 06/23 1305 30 06/23 1200 94 Ventilator 40% 06/23 0839 40 Intake & Output 06/24 1600 06/24 0800 06/24 0000 Intake Total 618.0 616.0 Output Total 750 705 Balance -132.0 -89.0 Intake, IV 230 500 Intake, Lipid 64.0 19.0 Intake, Oral 0 0 Intake, 324 97 TPN/PPN Number 0 0 Bowel Movements Output, 50 105 Drainage Output, 50 100 Gastric Drainage Output, Urine 650 500 Physical Exam General Appearance: alert, awake, comfortable, intubated Head: swelling on right face, unchanged Ears, Nose, Throat: ET tube in place Respiratory: no respiratory distress, lungs clear Cardiovascular: regular rate/rhythm, no murmurs, rubs or gallops Gastrointestinal: soft, tenderness to palpation, quiet bowel sounds Extremities: no edema Skin: normal color, warm/dry Results Last 24 Hrs of Lab Results: Laboratory Tests 06/24/16 0440: Anion Gap 7, Estimated GFR > 60, Glucose 116 H, Calcium 8.1 L, Phosphorus 2.7, Magnesium 1.8, Total Bilirubin 0.9, AST 20, ALT 35, Albumin 2.5 L, CBC w Diff MAN DIFF ORDERED, RBC 4.06 L, MCV 90.2, MCH 30.0, RDW 16.9 H, MPV 8.3, Gran % 89.9 H, Lymphocytes % 7.6 L, Monocytes % 2.2, Eosinophils % 0.3, Basophils % 0 L, Absolute Granulocytes 8.6 H, Absolute Lymphocytes 0.7 L, Absolute Monocytes 0.2, Absolute Eosinophils 0, Absolute Basophils 0, Platelet Estimate ADEQUATE, Hypochromic-Microcytic 2+, PUBS MCHC 33.2 06/23/16 1000: AST Cancelled, ALT Cancelled, Alkaline Phosphatase Cancelled, Albumin Cancelled 06/23/16 0930: Anion Gap 7, Estimated GFR > 60, BUN/Creatinine Ratio 32.0 H, Glucose 101 H, Calcium 7.9 L, Phosphorus 3.2, Magnesium 1.8, Total Bilirubin 0.8, Prealbumin 19.0, Triglycerides 44, Cholesterol 95, CBC w Diff MAN DIFF ORDERED, RBC 3.95 L , MCV 90.1, MCH 29.9, RDW 16.7 H, MPV 8.3, Gran % 93.7 H, Lymphocytes % 4.9 L , Monocytes % 1.4 L, Eosinophils % 0, Basophils % 0 L, Absolute Granulocytes 11.0 H, Segmented Neutrophils 71, Band Neutrophils 24 H, Absolute Lymphocytes 0.6 L, Lymphocytes 5 L, Absolute Monocytes 0.2, Absolute Eosinophils 0, Absolute Basophils 0, Anisocytosis 1+, PUBS MCHC 33.2 Last 24 Hrs of Micro Results: Cultures negative to date. Diagnostic Data CXR Findings: Endotracheal tube catheter 5 cm above the uri. Lungs clear. Free air under right diaphragm. Impression/Plan Impression/Plan Impression/Plan: 1. Perforated sigmoid diverticulum, s/p exploratory laprotomy. Residual free air under diaphram on CXR this morning. 2. Respiratory failure - the patient was having episodes of apnea on a fentanyl drip. This has since been discontinued and he is doing better with weaning. 3. Metastatic squamous cell carcinoma. 4. Malnutrition. Recommendations: * Begin weaning trials. Will extubate if parameters are acceptable. * Continue ceftriaxone and Flagyl. * Replete potassium. * Continue TPN. * Continue stress dose steroids. * Continue with pain control. * Will continue to follow up surgery and oncology recommendations. * Continue DVT/GI prophylaxis. * Continue all supportive care.
--- NOTE | 2016-06-24 10:26 | PN- Infect Dx ---
Subjective Subjective: Afebrile on steroids. He notes mild lower abdominal discomfort. Objective Last 24 Hrs of Vital Signs/I&O Vital Signs Date Time Temp Pulse Resp B/P Pulse O2 O2 Flow FiO2 Ox Delivery Rate 06/24 0755 30 06/24 0548 30 06/24 0400 98 Ventilator 30% 06/24 0339 30 06/24 0111 30 06/24 0000 99.4 68 16 164/82 100 Ventilator 30% 06/24 0000 100 Ventilator 30% 06/23 2206 30 06/23 2000 100 Ventilator 30% 06/23 1925 30 06/23 1600 30 06/23 1600 98.2 70 20 160/80 94 Ventilator 40% 06/23 1600 94 Ventilator 40% 06/23 1433 30 06/23 1305 30 06/23 1200 94 Ventilator 40% Intake & Output 06/24 1600 06/24 0800 06/24 0000 Intake Total 618.0 616.0 Output Total 750 705 Balance -132.0 -89.0 Intake, IV 230 500 Intake, Lipid 64.0 19.0 Intake, Oral 0 0 Intake, 324 97 TPN/PPN Number 0 0 Bowel Movements Output, 50 105 Drainage Output, 50 100 Gastric Drainage Output, Urine 650 500 Physical Exam Other Physical Findings: He is awake and alert on the ventilator in no acute distress Lungs are clear Heart regular rhythm with no murmur Abdomen is soft, tender on palpation over the lower abdomen, with no guarding or rebound, positive bowel sounds; 2 ZULEIMA drains remain in place Extremities no cyanosis, clubbing or edema Almonte catheter remains in place Results Last 24 Hours of Lab Results: Laboratory Tests 06/24 06/24 0915 0440 Blood Gas pH (7.35 - 7.45 PH) 7.48 H pCO2 (35 - 45 TORR) 39 pO2 (80 - 100 TORR) 119 H HCO3 (21 - 28 MEQ/L) 28 ABG O2 Sat (Measured) (>96.0 %) 98.0 Carboxyhemoglobin (1.5 - 5.0 %) 0.3 L O2 Concentration % 30% Temperature (97.0 - 100.0 FARH) 99.4 O2 Delivery Method VENT Vent Mode CPAP Expiratory Pressure (CMH2O/P) 5 Pressure Support (CMH2O/P) 6 Chemistry Sodium (137 - 145 mmol/L) 134 L Potassium (3.5 - 5.1 mmol/L) 3.3 L Chloride (98 - 107 mmol/L) 101 Carbon Dioxide (22 - 30 mmol/L) 26 Anion Gap (5 - 16) 7 BUN (9 - 20 mg/dL) 13 Creatinine (0.7 - 1.2 mg/dL) 0.5 L Estimated GFR (>60 ml/min) > 60 Glucose (65 - 99 mg/dL) 116 H Calcium (8.4 - 10.2 mg/dL) 8.1 L Phosphorus (2.5 - 4.5 mg/dL) 2.7 Magnesium (1.6 - 2.3 mg/dL) 1.8 Total Bilirubin (0.2 - 1.3 mg/dL) 0.9 AST (17 - 59 U/L) 20 ALT (21 - 72 U/L) 35 Albumin (3.5 - 5.0 g/dL) 2.5 L Hematology CBC w Diff MAN DIFF ORDERED WBC (4.8 - 10.8 /CUMM) 9.6 RBC (4.70 - 6.10 /CUMM) 4.06 L Hgb (14.0 - 18.0 G/DL) 12.2 L Hct (42 - 52 %) 36.6 L MCV (80.0 - 94.0 FL) 90.2 MCH (27.0 - 31.0 PG) 30.0 RDW (11.5 - 14.5 %) 16.9 H Plt Count (130 - 400 /CUMM) 144 MPV (7.4 - 10.4 FL) 8.3 Gran % (42.2 - 75.2 %) 89.9 H Lymphocytes % (20.5 - 51.1 %) 7.6 L Monocytes % (1.7 - 9.3 %) 2.2 Eosinophils % (0 - 5 %) 0.3 Basophils % (0.0 - 2.0 %) 0 L Absolute Granulocytes (1.4 - 6.5 /CUMM) 8.6 H Absolute Lymphocytes (1.2 - 3.4 /CUMM) 0.7 L Absolute Monocytes (0.10 - 0.60 /CUMM) 0.2 Absolute Eosinophils (0.0 - 0.7 /CUMM) 0 Absolute Basophils (0.0 - 0.2 /CUMM) 0 Platelet Estimate (ADEQUATE) ADEQUATE Hypochromic-Microcytic 2+ PUBS MCHC (33.0 - 37.0 G/DL) 33.2 Miscellaneous Phlebotomy Draw Site LEFT RADIAL Last 24 Hours of Robbin Results: Blood cultures 2 June 23 negative Urine culture June 23 negative Recent Imaging Studies: Chest x-ray June 23, personally reviewed, negative Assessment/Plan Impression: Stable status post exploratory laparotomy yesterday for what was felt to be a sealed perforation of sigmoid diverticulosis, resulting in free air that was seen on the CT scan of the abdomen and pelvis. He remains afebrile (on steroids ) with white blood cell count normal on Ceftriaxone and Flagyl. Suggestion: 1. Remove Almonte catheter 2. Continue Ceftriaxone and Flagyl
[2016-06-24 16:00] VITALS: BP 142/80
[2016-06-24 23:00] VITALS: BP 117/82
--- NOTE | 2016-06-25 05:48 | PN- General Surgery ---
Subjective Subjective: NAEO. Patient was extubated yesterday. Pain is tolerable at the moment but had difficulty sleeping as his pain was 7/10. He remains NPO with NGT to LWS and is getting TPN for nutrition. Has not passed flatus or had BM. Voiding spontaneously. He has not been OOB. Denies CP/SOB. Objective Vital Signs and I&Os Vital Signs Date Time Temp Pulse Resp B/P Pulse O2 O2 Flow FiO2 Ox Delivery Rate 06/25 0400 97 Room Air 06/25 0000 99 Room Air 06/24 2300 98.7 66 12 117/82 98 Room Air 06/24 2132 Nasal 2.0L Cannula 06/24 2000 97 Room Air Room Air 06/24 1600 98.6 68 16 142/80 97 Nasal 2.0L Cannula 06/24 1600 97 Nasal 2.0L Cannula 06/24 1200 98 Nasal 2.0L Cannula 06/24 0800 99.1 68 18 160/80 98 Ventilator 30% 06/24 0800 98 Ventilator 30% 06/24 0755 30 06/24 0548 30 Intake & Output 06/25 0800 06/25 0000 06/24 1600 06/24 0800 06/24 0000 06/23 1600 Intake Total 517.0 1143.0 618.0 616.0 890 Output Total 970 1955 750 705 730 Balance -453.0 -812.0 -132.0 -89.0 160 Intake, IV 100 654 230 500 890 Intake, Lipid 64.0 77.0 64.0 19.0 Intake, Oral 0 0 Intake, Other 30 25 Intake, 323 387 324 97 TPN/PPN Number 0 0 0 0 Bowel Movements Output, 20 55 50 105 90 Drainage Output, 50 250 50 100 Gastric Drainage Output, Urine 900 1650 650 500 640 Patient 152 lb Weight Physical Exam: General: NAD, comfortable, A&Ox3 Chest: Diminished breath sounds at lung bases with mild crackles. Good air movement. Heart S1S2 normal. Abdomen: soft, nondistended. Appropriately tender to palpation. Midline incision intact with sammy without surrounding erythema, swelling, purulent draining, or signs of infection. ZULEIMA drain x2 with serosanguineous drainage. Hypoactive Bowel sounds x4 quadrants Ext: No calve swelling/TTP, neurovascularly intact bilateral lower extremities. Current Medications: Current Medications Sig/Lisa Start time Last Medication Dose Route Stop Time Status Admin Acetaminophen 1,000 MG Q6P PRN 06/23 0600 AC 06/24 N/A 1 UNIT IV 0548 Atorvastatin Calcium 40 MG MoWeFr@1700 06/23 1700 AC PO Ceftriaxone Sodium 1,000 MG 2200 06/23 2200 AC 06/24 IV 2223 Dexamethasone 4 MG DAILY 06/24 1000 AC 06/24 Dextrose/Water 50 ML IV 0915 Fat Emulsion 300 ML 1900 06/24 1900 AC 06/24 Intravenous IV 06/25 [id number] Fat Emulsion 200 ML 1900 06/23 1900 DC 06/23 Intravenous IV 06/24 Fat Emulsion 200 ML 1900 06/23 1900 DC Intravenous IV 06/24 185 Fentanyl Citrate 25 MCG Q72H 06/23 1415 AC 06/23 TOP 1855 Gabapentin 100 MG Q8 06/23 1413 AC PO Heparin Sodium 5,000 UNIT Q8 06/23 0600 AC 06/24 (Porcine) SC 2223 Insulin Human Regular 0 Q6 06/23 1800 AC 06/25 SC 0034 Magnesium Sulfate 1 GM ONCE ONE 06/24 0600 DC 06/24 Dextrose/Water 100 ML IV 06/24 0959 0911 Metronidazole 500 MG Q8H 06/23 1000 AC 06/25 N/A 1 UNIT IV 0231 Morphine Sulfate 2 MG Q8P PRN 06/24 0815 AC IV Morphine Sulfate 10 MG Q6P PRN 06/23 1415 AC PO Morphine Sulfate 2 MG Q3P PRN 06/23 0600 AC 06/25 IV 0251 Pantoprazole Sodium 40 MG DAILY 06/23 1043 AC 06/24 IV 0911 Potassium Chloride 10 MEQ ONCE ONE 06/24 0915 CAN IV 06/24 0916 Potassium Chloride 20 MEQ ONCE ONE 06/24 0600 CAN IV 06/24 0601 Potassium Chloride 10 MEQ Q1H 06/24 0600 DC 06/24 IV 06/24 0701 0911 Total Parenteral 1 UNIT 1900 06/24 1900 AC 06/24 Nutrition IV 06/25 Total Parenteral 1 UNIT 1900 06/23 1900 DC 06/23 Nutrition IV 06/24 Results Last 48 Hours of Labs: Laboratory Tests 06/25 06/24 0500 0915 Blood Gas pH (7.35 - 7.45 PH) 7.48 H pCO2 (35 - 45 TORR) 39 pO2 (80 - 100 TORR) 119 H HCO3 (21 - 28 MEQ/L) 28 ABG O2 Sat (Measured) (>96.0 %) 98.0 Carboxyhemoglobin (1.5 - 5.0 %) 0.3 L O2 Concentration % 30% Temperature (97.0 - 100.0 FARH) 99.4 O2 Delivery Method VENT Vent Mode CPAP Expiratory Pressure (CMH2O/P) 5 Pressure Support (CMH2O/P) 6 Chemistry Sodium Pending Potassium Pending Chloride Pending Carbon Dioxide Pending Anion Gap Pending BUN Pending Creatinine Pending Glucose Pending Calcium Pending Phosphorus Pending Magnesium Pending Total Bilirubin Pending AST Pending ALT Pending Albumin Pending Hematology CBC w Diff Pending WBC Pending RBC Pending Hgb Pending Hct Pending MCV Pending MCH Pending RDW Pending Plt Count Pending MPV Pending PUBS MCHC Pending Miscellaneous Phlebotomy Draw Site LEFT RADIAL 06/24 06/23 0440 UNK Chemistry Sodium (137 - 145 mmol/L) 134 L Potassium (3.5 - 5.1 mmol/L) 3.3 L Chloride (98 - 107 mmol/L) 101 Carbon Dioxide (22 - 30 mmol/L) 26 Anion Gap (5 - 16) 7 BUN (9 - 20 mg/dL) 13 Creatinine (0.7 - 1.2 mg/dL) 0.5 L Estimated GFR (>60 ml/min) > 60 Glucose (65 - 99 mg/dL) 116 H Calcium (8.4 - 10.2 mg/dL) 8.1 L Phosphorus (2.5 - 4.5 mg/dL) 2.7 Magnesium (1.6 - 2.3 mg/dL) 1.8 Total Bilirubin (0.2 - 1.3 mg/dL) 0.9 AST (17 - 59 U/L) 20 Cancelled ALT (21 - 72 U/L) 35 Cancelled Alkaline Phosphatase Cancelled Albumin (3.5 - 5.0 g/dL) 2.5 L Cancelled Hematology CBC w Diff MAN DIFF ORDERED WBC (4.8 - 10.8 /CUMM) 9.6 RBC (4.70 - 6.10 /CUMM) 4.06 L Hgb (14.0 - 18.0 G/DL) 12.2 L Hct (42 - 52 %) 36.6 L MCV (80.0 - 94.0 FL) 90.2 MCH (27.0 - 31.0 PG) 30.0 RDW (11.5 - 14.5 %) 16.9 H Plt Count (130 - 400 /CUMM) 144 MPV (7.4 - 10.4 FL) 8.3 Gran % (42.2 - 75.2 %) 89.9 H Lymphocytes % (20.5 - 51.1 %) 7.6 L Monocytes % (1.7 - 9.3 %) 2.2 Eosinophils % (0 - 5 %) 0.3 Basophils % (0.0 - 2.0 %) 0 L Absolute Granulocytes (1.4 - 6.5 /CUMM) 8.6 H Absolute Lymphocytes (1.2 - 3.4 /CUMM) 0.7 L Absolute Monocytes (0.10 - 0.60 /CUMM) 0.2 Absolute Eosinophils (0.0 - 0.7 /CUMM) 0 Absolute Basophils (0.0 - 0.2 /CUMM) 0 Platelet Estimate (ADEQUATE) ADEQUATE Hypochromic-Microcytic 2+ PUBS MCHC (33.0 - 37.0 G/DL) 33.2 06/23 06/23 0930 0823 Blood Gas pH (7.35 - 7.45 PH) 7.51 H pCO2 (35 - 45 TORR) 36 pO2 (80 - 100 TORR) 156 H HCO3 (21 - 28 MEQ/L) 28 ABG O2 Sat (Measured) (>96.0 %) 99.0 P-50 (Temp Corrected) YES Carboxyhemoglobin (1.5 - 5.0 %) 0.9 L O2 Concentration % 40% Temperature (97.0 - 100.0 FARH) 99.2 Respiration Rate (BPM) 16 O2 Delivery Method VENT Vent Mode AC Expiratory Pressure (CMH2O/P) 5 Tidal Volume (CC) 500 Chemistry Sodium (137 - 145 mmol/L) 135 L Potassium (3.5 - 5.1 mmol/L) 3.3 L Chloride (98 - 107 mmol/L) 99 Carbon Dioxide (22 - 30 mmol/L) 29 Anion Gap (5 - 16) 7 BUN (9 - 20 mg/dL) 16 Creatinine (0.7 - 1.2 mg/dL) 0.5 L Estimated GFR (>60 ml/min) > 60 BUN/Creatinine Ratio (7 - 25 %) 32.0 H Glucose (65 - 99 mg/dL) 101 H Calcium (8.4 - 10.2 mg/dL) 7.9 L Phosphorus (2.5 - 4.5 mg/dL) 3.2 Magnesium (1.6 - 2.3 mg/dL) 1.8 Total Bilirubin (0.2 - 1.3 mg/dL) 0.8 Prealbumin (17.6 - 36.0 mg/dL) 19.0 Triglycerides (<150 mg/dL) 44 Cholesterol (< 200 MG/DL) 95 Hematology CBC w Diff MAN DIFF ORDERED WBC (4.8 - 10.8 /CUMM) 11.7 H RBC (4.70 - 6.10 /CUMM) 3.95 L Hgb (14.0 - 18.0 G/DL) 11.8 L Hct (42 - 52 %) 35.5 L MCV (80.0 - 94.0 FL) 90.1 MCH (27.0 - 31.0 PG) 29.9 RDW (11.5 - 14.5 %) 16.7 H Plt Count (130 - 400 /CUMM) 137 MPV (7.4 - 10.4 FL) 8.3 Gran % (42.2 - 75.2 %) 93.7 H Lymphocytes % (20.5 - 51.1 %) 4.9 L Monocytes % (1.7 - 9.3 %) 1.4 L Eosinophils % (0 - 5 %) 0 Basophils % (0.0 - 2.0 %) 0 L Absolute Granulocytes (1.4 - 6.5 /CUMM) 11.0 H Segmented Neutrophils (42.2 - 75.2 %) 71 Band Neutrophils (0.0 - 5.0 %) 24 H Absolute Lymphocytes (1.2 - 3.4 /CUMM) 0.6 L Lymphocytes (20.5 - 51.1 %) 5 L Absolute Monocytes (0.10 - 0.60 /CUMM) 0.2 Absolute Eosinophils (0.0 - 0.7 /CUMM) 0 Absolute Basophils (0.0 - 0.2 /CUMM) 0 Anisocytosis 1+ PUBS MCHC (33.0 - 37.0 G/DL) 33.2 Miscellaneous Phlebotomy Draw Site LEFT A LINE Assessment/Plan Assessment/Plan 73yo M POD#2 s/p exploratory laparotomy for perforated viscus postoperative day #1. AVSS. - Pain control - PRN zofran - f/u labs - TPN - continue NPO with NGT to LWS - ARBF - JPs to self suction - Continue IV antibiotics per ID recs - TRC - OOB to chair toady - GI and DVT prophylaxis - Care per critical care team - Will d/w attending Core Measures/Miscellaneous Venous Thromboembolism VTE Risk Factors: Age > 40, Cancer/chemo/oth therapy, Surgery VTE Contraindications: No Contraindications VTE Prophylaxis Ordered Inpt Mech & Pharm VTE Diagnosis: No Beta Angela Is Beta Angela a Home Med? No Antibiotics Is Patient on Antibiotics? Yes If Yes: infection
[2016-06-25 06:01] LABS: ABSOLUTE BASOPHIL COUNT 0 /CUMM (0.0-0.2); ABSOLUTE EOSINOPHIL COUNT 0 /CUMM (0.0-0.7); ABSOLUTE GRANULOCYTE CT 7.8 /CUMM (1.4-6.5); ABSOLUTE LYMPH COUNT 0.4 /CUMM (1.2-3.4); ABSOLUTE MONOCYTE COUNT 0.3 /CUMM (0.10-0.60); BASOPHIL % 0.2 % (0.0-2.0); EOSINOPHIL % 0.1 % (0-5); GRANULOCYTE % 91.8 % (42.2-75.2); HEMATOCRIT 35.9 % (42-52); MEAN CORPUSCULAR HGB 29.8 PG (27.0-31.0); MEAN CORPUSCULAR VOLUME 90.3 FL (80.0-94.0); MEAN PLATELET VOLUME 8.4 FL (7.4-10.4); PLATELET COUNT 151 /CUMM (130-400); RBC DISTRIBUTION WIDTH 16.8 % (11.5-14.5); RED BLOOD CELL CT 3.98 /CUMM (4.70-6.10); WHITE BLOOD CELL COUNT 8.4 /CUMM (4.8-10.8)
[2016-06-25 07:00] VITALS: BP 151/88
--- NOTE | 2016-06-25 07:12 | PN- Resident CRCU ---
Subjective HPI/CRCU Issues: Patient was successfully extubated yesterday. His respiratory status is stable and he is satting well on room air. There were no acute events overnight. Patient was seen and examined this morning. He is doing well exploratory laparotomy post-op day #2. He complains of burning in his throat while swallowing as well as post-operative right groin pain. He has not passed flatus or had a bowel movement. Objective Vital Signs & I&O Last 8 Hrs of Vitals and I&O: Vital Signs Date Time Temp Pulse Resp B/P Pulse O2 O2 Flow FiO2 Ox Delivery Rate 06/25 0700 58 16 151/88 98 Room Air 06/25 0400 97 Room Air 06/25 0000 99 Room Air 06/24 2300 98.7 66 12 117/82 98 Room Air 06/24 2132 Nasal 2.0L Cannula 06/24 2000 97 Room Air Room Air 06/24 1600 98.6 68 16 142/80 97 Nasal 2.0L Cannula 06/24 1600 97 Nasal 2.0L Cannula 06/24 1200 98 Nasal 2.0L Cannula Exam General Appearance: no apparent distress, alert, awake, intubated Head: right face swollen and indurated Ears, Nose, Throat: ET tube in place Respiratory: lungs clear Cardiovascular: regular rate/rhythm, normal S1 and S2, no murmurs, rubs or gallops Gastrointestinal: soft, tenderness to palpation most pronounced on lower abdomen , positive bowel sounds, no guarding or rebounding Extremities: no edema, no clubbing or cyanosis Skin: normal color, warm/dry Current Medications: Current Medications Sig/Lisa Start time Last Medication Dose Route Stop Time Status Admin Acetaminophen 1,000 MG Q6P PRN 06/23 0600 AC 06/24 N/A 1 UNIT IV 0548 Atorvastatin Calcium 40 MG [id number]@1700 06/23 1700 AC PO Bisacodyl 10 MG DAILY 06/25 1028 AC CA Ceftriaxone Sodium 1,000 MG 2200 06/23 2200 AC 06/24 IV 2223 Dexamethasone 4 MG DAILY 06/24 1000 AC 06/25 Dextrose/Water 50 ML IV 1002 Fat Emulsion 350 ML Q24H 06/25 1900 AC Intravenous IV 06/26 1859 Fat Emulsion 300 ML 06/24 1900 AC 06/24 Intravenous IV 06/25 185 1948 Fat Emulsion 200 ML 06/23 1900 DC Intravenous IV 06/24 1859 Fentanyl Citrate 25 MCG Q72H 06/23 1415 AC 06/23 TOP 1855 Gabapentin 100 MG Q8 06/23 1413 AC 06/25 PO 0606 Heparin Sodium 5,000 UNIT Q8 06/23 0600 AC 06/25 (Porcine) SC 0605 Hydromorphone HCl 1 MG Q4P PRN 06/25 1015 AC IV Insulin Human Regular 0 Q6 06/23 1800 AC 06/25 SC 0601 Magnesium Hydroxide 30 ML BID 06/25 1026 UNVr PO Metronidazole 500 MG Q8H 06/23 1000 AC 06/25 N/A 1 UNIT IV 1002 Morphine Sulfate 2 MG Q8P PRN 06/24 0815 DC IV Morphine Sulfate 10 MG Q6P PRN 06/23 1415 AC PO Morphine Sulfate 2 MG Q3P PRN 06/23 0600 DC 06/25 IV 0817 Pantoprazole Sodium 40 MG DAILY 06/23 1043 AC 06/25 IV 1002 Potassium Chloride 10 MEQ ONCE ONE 06/25 0730 DC 06/25 IV 06/25 0731 0841 Potassium Chloride 10 MEQ ONCE ONE 06/25 0730 DC IV 06/25 0731 Total Parenteral 1 UNIT ONE 06/25 1900 AC Nutrition IV 06/26 185 Total Parenteral 1 UNIT 0 06/24 1900 AC 06/24 Nutrition IV 06/25 1858 194 Total Parenteral 1 UNIT 0 06/23 190 DC 06/23 Nutrition IV 06/24 Results Results: Laboratory Tests 06/25 0500 Chemistry Sodium (137 - 145 mmol/L) 137 Potassium (3.5 - 5.1 mmol/L) 3.5 Chloride (98 - 107 mmol/L) 101 Carbon Dioxide (22 - 30 mmol/L) 33 H Anion Gap (5 - 16) 4 L BUN (9 - 20 mg/dL) 13 Creatinine (0.7 - 1.2 mg/dL) 0.4 L Estimated GFR (>60 ml/min) > 60 Glucose (65 - 99 mg/dL) 96 Calcium (8.4 - 10.2 mg/dL) 8.1 L Phosphorus (2.5 - 4.5 mg/dL) 2.8 Magnesium (1.6 - 2.3 mg/dL) 2.1 Total Bilirubin (0.2 - 1.3 mg/dL) 0.5 AST (17 - 59 U/L) 18 ALT (21 - 72 U/L) 36 Albumin (3.5 - 5.0 g/dL) 2.4 L Hematology CBC w Diff MAN DIFF ORDERED WBC (4.8 - 10.8 /CUMM) 8.4 RBC (4.70 - 6.10 /CUMM) 3.98 L Hgb (14.0 - 18.0 G/DL) 11.9 L Hct (42 - 52 %) 35.9 L MCV (80.0 - 94.0 FL) 90.3 MCH (27.0 - 31.0 PG) 29.8 RDW (11.5 - 14.5 %) 16.8 H Plt Count (130 - 400 /CUMM) 151 MPV (7.4 - 10.4 FL) 8.4 Gran % (42.2 - 75.2 %) 91.8 H Lymphocytes % (20.5 - 51.1 %) 4.6 L Monocytes % (1.7 - 9.3 %) 3.3 Eosinophils % (0 - 5 %) 0.1 Basophils % (0.0 - 2.0 %) 0.2 Absolute Granulocytes (1.4 - 6.5 /CUMM) 7.8 H Segmented Neutrophils (42.2 - 75.2 %) 86 H Band Neutrophils (0.0 - 5.0 %) 5 Absolute Lymphocytes (1.2 - 3.4 /CUMM) 0.4 L Lymphocytes (20.5 - 51.1 %) 6 L Monocytes (1.7 - 9.3 %) 3 Absolute Monocytes (0.10 - 0.60 /CUMM) 0.3 Absolute Eosinophils (0.0 - 0.7 /CUMM) 0 Absolute Basophils (0.0 - 0.2 /CUMM) 0 Platelet Estimate (ADEQUATE) ADEQUATE Normocytic RBCs VERIFIED Hypochromic-Microcytic 1+ PUBS MCHC (33.0 - 37.0 G/DL) 33.0 Other Body Source Fld Total RBCs Counted (%) 100 Impression/Plan Impression/Problem List Impression: 76 y/o M with 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 Problem List: 1. S/P exploratory laparotomy 2. Perforation of large intestine 3. Sigmoid diverticulosis 4. Squamous cell carcinoma of mouth Pain Ratin Tomorrow's Labs & Rationales: CBC and ICU bundle (ICU patient) Plan Respiratory: Successfully extubated yesterday. Respiratory status stable since then. Satting well and without shortness of breath on room air. Infectious Diseases: #Perforated sigmoid diverticulosis: Remains afebrile and without leukocytosis. On day 3 of ceftriaxone and Flagyl. * ID following. Appreciate their recs. * Surgery following. Appreciate their recs. * Continue ceftriaxone 1 g IV QD and Flagyl 500 mg IV Q8H. Will most likely require 5-7 day course of antibiotics per ID. * Administer daily Dulcolax suppositories for constipation. Hold for loose stools. * Give milk of magnesia twice daily through NG tube. * Zofran PRN for nausea and vomiting. Cardiovascular: Hemodynamically stable. Hematology: H/H stable, 11.9/35.9 today. Metabolic: Replete to K > 4, Mg > 2 and Phos > 3. Alimentary: TPN Neurological: AAO x3. No issues. 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 Appreciate their recs. * Continue home gabapentin 100 mg PO BID, fentanyl 25 mcg patch and morphine for pain. * Continue prior to admission dexamethasone 4 mg daily for inflammation. * Dilaudid 1 g IV Q4H PRN started for severe pain (scale 7-10).
--- NOTE | 2016-06-25 07:21 | PN- Oncology ---
Subjective Subjective: Complaining of abdominal pain, complaining of right facial pain Review of Systems: 12 point review of systems otherwise unchanged Objective Vital Signs and I&Os Vital Signs Date Time Temp Pulse Resp B/P Pulse O2 O2 Flow FiO2 Ox Delivery Rate 06/25 0700 58 16 151/88 98 Room Air 06/25 0400 97 Room Air 06/25 0000 99 Room Air 06/24 2300 98.7 66 12 117/82 98 Room Air 06/24 2132 Nasal 2.0L Cannula 06/24 2000 97 Room Air Room Air 06/24 1600 98.6 68 16 142/80 97 Nasal 2.0L Cannula 06/24 1600 97 Nasal 2.0L Cannula 06/24 1200 98 Nasal 2.0L Cannula 06/24 0800 99.1 68 18 160/80 98 Ventilator 30% 06/24 0800 98 Ventilator 30% 06/24 0755 30 Intake & Output 06/25 0800 06/25 0000 06/24 1600 06/24 0800 06/24 0000 06/23 1600 Intake Total 736 517.0 1143.0 618.0 616.0 890 Output Total 3012 581 1024 750 705 730 Balance -464 -453.0 -812.0 -132.0 -89.0 160 Intake, IV 706 100 654 230 500 890 Intake, Lipid 64.0 77.0 64.0 19.0 Intake, Oral 0 0 Intake, Other 30 30 25 Intake, 323 387 324 97 TPN/PPN Number 0 0 0 0 Bowel Movements Output, 30 20 55 50 105 90 Drainage Output, 150 50 250 50 100 Gastric Drainage Output, Urine 4232 257 5977 650 500 640 Patient 152 lb Weight Gen.: in NAD ENT: Sclera anicteric, no change in visual inspection of mass Chest: Normal respiratory effort, decreased breath sounds Cor: RRR, no extra sounds Abdomen: Postop Extremities: Without clubbing, cyanosis, or edema Neurology: Alert and oriented 3, Skin: No rashes Current Medications: Current Medications Sig/Lisa Start time Last Medication Dose Route Stop Time Status Admin Acetaminophen 1,000 MG Q6P PRN 06/23 0600 AC 06/24 N/A 1 UNIT IV 0548 Atorvastatin Calcium 40 MG [id number]@1700 06/23 170 AC PO Ceftriaxone Sodium 1,000 MG 06/23 AC 06/24 IV 2223 Dexamethasone 4 MG DAILY 06/24 1000 AC 06/24 Dextrose/Water 50 ML IV 0915 Fat Emulsion 300 ML 0 06/24 1900 AC 06/24 Intravenous IV 06/25 Fat Emulsion 200 ML 1900 06/23 1900 DC 06/23 Intravenous IV 06/24 Fat Emulsion 200 ML 1900 06/23 1900 DC Intravenous IV 06/24 185 Fentanyl Citrate 25 MCG Q72H 06/23 1415 06/23 TOP 1855 Gabapentin 100 MG Q8 06/23 1413 AC 06/25 PO 0606 Heparin Sodium 5,000 UNIT Q8 06/23 0600 AC 06/25 (Porcine) SC 0605 Insulin Human Regular 0 Q6 06/23 1800 06/25 SC 0601 Magnesium Sulfate 1 GM ONCE ONE 06/24 0600 OR 06/24 Dextrose/Water 100 ML IV 06/24 0959 0911 Metronidazole 500 MG Q8H 06/23 1000 AC 06/25 N/A 1 UNIT IV 0231 Morphine Sulfate 2 MG Q8P PRN 06/24 0815 AC IV Morphine Sulfate 10 MG Q6P PRN 06/23 1415 AC PO Morphine Sulfate 2 MG Q3P PRN 06/23 0600 AC 06/25 IV 0251 Pantoprazole Sodium 40 MG DAILY 06/23 1043 AC 06/24 IV 0911 Potassium Chloride 10 MEQ ONCE ONE 06/25 0730 UNVr IV 06/25 0731 Potassium Chloride 10 MEQ ONCE ONE 06/25 0730 UNVr IV 06/25 0731 Potassium Chloride 10 MEQ ONCE ONE 06/24 0915 CAN IV 06/24 0916 Total Parenteral 1 UNIT 0 06/24 190 06/24 Nutrition IV 06/25 Total Parenteral 1 UNIT 1900 06/23 1900 OR 06/23 Nutrition IV 06/24 Results Last 24 Hours of Lab Results: Laboratory Tests 06/25 06/24 0500 0915 Blood Gas pH (7.35 - 7.45 PH) 7.48 H pCO2 (35 - 45 TORR) 39 pO2 (80 - 100 TORR) 119 H HCO3 (21 - 28 MEQ/L) 28 ABG O2 Sat (Measured) (>96.0 %) 98.0 Carboxyhemoglobin (1.5 - 5.0 %) 0.3 L O2 Concentration % 30% Temperature (97.0 - 100.0 FARH) 99.4 O2 Delivery Method VENT Vent Mode CPAP Expiratory Pressure (CMH2O/P) 5 Pressure Support (CMH2O/P) 6 Chemistry Sodium (137 - 145 mmol/L) 137 Potassium (3.5 - 5.1 mmol/L) 3.5 Chloride (98 - 107 mmol/L) 101 Carbon Dioxide (22 - 30 mmol/L) 33 H Anion Gap (5 - 16) 4 L BUN (9 - 20 mg/dL) 13 Creatinine (0.7 - 1.2 mg/dL) 0.4 L Estimated GFR (>60 ml/min) > 60 Glucose (65 - 99 mg/dL) 96 Calcium (8.4 - 10.2 mg/dL) 8.1 L Phosphorus (2.5 - 4.5 mg/dL) 2.8 Magnesium (1.6 - 2.3 mg/dL) 2.1 Total Bilirubin (0.2 - 1.3 mg/dL) 0.5 AST (17 - 59 U/L) 18 ALT (21 - 72 U/L) 36 Albumin (3.5 - 5.0 g/dL) 2.4 L Hematology CBC w Diff MAN DIFF ORDERED WBC (4.8 - 10.8 /CUMM) 8.4 RBC (4.70 - 6.10 /CUMM) 3.98 L Hgb (14.0 - 18.0 G/DL) 11.9 L Hct (42 - 52 %) 35.9 L MCV (80.0 - 94.0 FL) 90.3 MCH (27.0 - 31.0 PG) 29.8 RDW (11.5 - 14.5 %) 16.8 H Plt Count (130 - 400 /CUMM) 151 MPV (7.4 - 10.4 FL) 8.4 Gran % (42.2 - 75.2 %) 91.8 H Lymphocytes % (20.5 - 51.1 %) 4.6 L Monocytes % (1.7 - 9.3 %) 3.3 Eosinophils % (0 - 5 %) 0.1 Basophils % (0.0 - 2.0 %) 0.2 Absolute Granulocytes (1.4 - 6.5 /CUMM) 7.8 H Segmented Neutrophils (42.2 - 75.2 %) 86 H Band Neutrophils (0.0 - 5.0 %) 5 Absolute Lymphocytes (1.2 - 3.4 /CUMM) 0.4 L Lymphocytes (20.5 - 51.1 %) 6 L Monocytes (1.7 - 9.3 %) 3 Absolute Monocytes (0.10 - 0.60 /CUMM) 0.3 Absolute Eosinophils (0.0 - 0.7 /CUMM) 0 Absolute Basophils (0.0 - 0.2 /CUMM) 0 Platelet Estimate (ADEQUATE) ADEQUATE Normocytic RBCs VERIFIED Hypochromic-Microcytic 1+ PUBS MCHC (33.0 - 37.0 G/DL) 33.0 Miscellaneous Phlebotomy Draw Site LEFT RADIAL Other Body Source Fld Total RBCs Counted (%) 100 Assessment/Plan Assessment/Recommendations: 1. Bowel perforation-continue adjuvant plans. Again, CT scan not reveal significant changes of colitis suggesting Opdivo not related to current status 2. Head and neck cancer-advanced Analgesia
--- NOTE | 2016-06-25 09:42 | PN- CRCU ---
Subjective HPI/Critical Care Issues: The patient is awake and alert. He continues to complain of pain in his head ( chronic) and pain at the surgical site. His respiratory status is stable postextubation. There were no overnight events reported. Objective Current Medications: Current Medications Sig/Lisa Start time Last Medication Dose Route Stop Time Status Admin Acetaminophen 1,000 MG Q6P PRN 06/23 0600 AC 06/24 N/A 1 UNIT IV 0548 Atorvastatin Calcium 40 MG MoWeFr@1700 06/23 1700 AC PO Ceftriaxone Sodium 1,000 MG 2200 06/23 2200 AC 06/24 IV 2223 Dexamethasone 4 MG DAILY 06/24 1000 AC 06/24 Dextrose/Water 50 ML IV 0915 Fat Emulsion 350 ML Q24H 06/25 1900 AC Intravenous IV 06/26 1859 Fat Emulsion 300 ML 1900 06/24 1900 AC 06/24 Intravenous IV 06/25 185 1948 Fat Emulsion 200 ML 1900 06/23 1900 DC Intravenous IV 06/24 1859 Fentanyl Citrate 25 MCG Q72H 06/23 1415 AC 06/23 TOP 1855 Gabapentin 100 MG Q8 06/23 1413 AC 06/25 PO 0606 Heparin Sodium 5,000 UNIT Q8 06/23 0600 AC 06/25 (Porcine) SC 0605 Insulin Human Regular 0 Q6 06/23 1800 06/25 SC 0601 Magnesium Sulfate 1 GM ONCE ONE 06/24 0600 [place] 06/24 Dextrose/Water 100 ML IV 06/24 0959 0911 Metronidazole 500 MG Q8H 06/23 1000 06/25 N/A 1 UNIT IV 0231 Morphine Sulfate 2 MG Q8P PRN 06/24 0815 AC IV Morphine Sulfate 10 MG Q6P PRN 06/23 1415 AC PO Morphine Sulfate 2 MG Q3P PRN 06/23 0600 AC 06/25 IV 0817 Pantoprazole Sodium 40 MG DAILY 06/23 1043 AC 06/24 IV 0911 Potassium Chloride 10 MEQ ONCE ONE 06/25 0730 DC 06/25 IV 06/25 0731 0841 Potassium Chloride 10 MEQ ONCE ONE 06/25 0730 DC IV 06/25 0731 Total Parenteral 1 UNIT ONE 06/25 1900 AC Nutrition IV 06/26 1859 Total Parenteral 1 UNIT 1900 06/24 1900 AC 06/24 Nutrition IV 06/25 185 1948 Total Parenteral 1 UNIT 1900 06/23 1900 DC 06/23 Nutrition IV 06/24 Vital Signs & I&O Last 24 Hrs of Vitals and I&O: Vital Signs Date Time Temp Pulse Resp B/P Pulse O2 O2 Flow FiO2 Ox Delivery Rate 06/25 0700 58 16 151/88 98 Room Air 06/25 0400 97 Room Air 06/25 0000 99 Room Air 06/24 2300 98.7 66 12 117/82 98 Room Air 06/24 2132 Nasal 2.0L Cannula 06/24 2000 97 Room Air Room Air 06/24 1600 98.6 68 16 142/80 97 Nasal 2.0L Cannula 06/24 1600 97 Nasal 2.0L Cannula 06/24 1200 98 Nasal 2.0L Cannula Intake & Output 06/25 1600 06/25 0800 06/25 0000 Intake Total 736 517.0 Output Total 1200 970 Balance -464 -453.0 Intake, IV 706 100 Intake, Lipid 64.0 Intake, Other 30 30 Intake, 323 TPN/PPN Number 0 Bowel Movements Output, 30 20 Drainage Output, 150 50 Gastric Drainage Output, Urine 1020 900 Physical Exam General Appearance: alert, awake, comfortable Head: swelling on right face, unchanged Ears, Nose, Throat: ET tube in place Respiratory: no respiratory distress, lungs clear Cardiovascular: regular rate/rhythm, no murmurs, rubs or gallops Gastrointestinal: soft, tenderness to palpation, quiet bowel sounds Extremities: no edema Skin: normal color, warm/dry Results Last 24 Hrs of Lab Results: Laboratory Tests 06/25/16 0500: Anion Gap 4 L, Estimated GFR > 60, Glucose 96, Calcium 8.1 L, Phosphorus 2.8, Magnesium 2.1, Total Bilirubin 0.5, AST 18, ALT 36, Albumin 2.4 L, CBC w Diff MAN DIFF ORDERED, RBC 3.98 L, MCV 90.3, MCH 29.8, RDW 16.8 H, MPV 8.4, Gran % 91.8 H, Lymphocytes % 4.6 L, Monocytes % 3.3, Eosinophils % 0.1, Basophils % 0.2, Absolute Granulocytes 7.8 H, Segmented Neutrophils 86 H, Band Neutrophils 5, Absolute Lymphocytes 0.4 L, Lymphocytes 6 L, Monocytes 3, Absolute Monocytes 0.3, Absolute Eosinophils 0, Absolute Basophils 0, Platelet Estimate ADEQUATE, Normocytic RBCs VERIFIED, Hypochromic-Microcytic 1+, PUBS MCHC 33.0, Fld Total RBCs Counted 100 Last 24 Hrs of Micro Results: Cultures negative to date. Impression/Plan Impression/Plan Impression/Plan: 1. Perforated sigmoid diverticulum, s/p exploratory laprotomy and abdominal washout. 2. Respiratory failure -stable respiratory status, now post extubation. 3. 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 4. Left lower lobe lung mass, suspicious for metastatic cancer. 5. Dysphagia. 6. Chronic constipation. 7. Malnutrition. Recommendations: * Continue ceftriaxone and Flagyl, follow up ID input. * Begin milk of magnesia twice a day down the NG tube. * Begin daily Dulcolax suppositories. * Avoid enemas. * Continue TPN. * Continue stress dose steroids, will need to begin weaning over the next 24 hours. * Continue with pain control. * Will continue to follow up surgery and oncology recommendations. * Continue DVT/GI prophylaxis. * Continue all supportive care. Code Status: Full Code
--- NOTE | 2016-06-25 10:46 | PN- Infect Dx ---
Subjective Subjective: Afebrile on steroids. He notes mild abdominal discomfort. Objective Last 24 Hrs of Vital Signs/I&O Vital Signs Date Time Temp Pulse Resp B/P Pulse O2 O2 Flow FiO2 Ox Delivery Rate 06/25 0700 58 16 151/88 98 Room Air 06/25 0400 97 Room Air 06/25 0000 99 Room Air 06/24 2300 98.7 66 12 117/82 98 Room Air 06/24 2132 Nasal 2.0L Cannula 06/24 2000 97 Room Air Room Air 06/24 1600 98.6 68 16 142/80 97 Nasal 2.0L Cannula 06/24 1600 97 Nasal 2.0L Cannula 06/24 1200 98 Nasal 2.0L Cannula Intake & Output 06/25 1600 06/25 0800 06/25 0000 Intake Total 736 517.0 Output Total 1200 970 Balance -464 -453.0 Intake, IV 706 100 Intake, Lipid 64.0 Intake, Other 30 30 Intake, 323 TPN/PPN Number 0 Bowel Movements Output, 30 20 Drainage Output, 150 50 Gastric Drainage Output, Urine 1020 900 Physical Exam Other Physical Findings: He is awake and alert in no acute distress status post extubation yesterday HEENT right facial swelling; NG tube remains in place Lungs are clear Heart regular rhythm with no murmur Abdomen is soft, tender to minimal palpation diffusely, with no definite guarding or rebound, positive bowel sounds Extremities no cyanosis, clubbing or edema Results Last 24 Hours of Lab Results: Laboratory Tests 06/25 0500 Chemistry Sodium (137 - 145 mmol/L) 137 Potassium (3.5 - 5.1 mmol/L) 3.5 Chloride (98 - 107 mmol/L) 101 Carbon Dioxide (22 - 30 mmol/L) 33 H Anion Gap (5 - 16) 4 L BUN (9 - 20 mg/dL) 13 Creatinine (0.7 - 1.2 mg/dL) 0.4 L Estimated GFR (>60 ml/min) > 60 Glucose (65 - 99 mg/dL) 96 Calcium (8.4 - 10.2 mg/dL) 8.1 L Phosphorus (2.5 - 4.5 mg/dL) 2.8 Magnesium (1.6 - 2.3 mg/dL) 2.1 Total Bilirubin (0.2 - 1.3 mg/dL) 0.5 AST (17 - 59 U/L) 18 ALT (21 - 72 U/L) 36 Albumin (3.5 - 5.0 g/dL) 2.4 L Hematology CBC w Diff MAN DIFF ORDERED WBC (4.8 - 10.8 /CUMM) 8.4 RBC (4.70 - 6.10 /CUMM) 3.98 L Hgb (14.0 - 18.0 G/DL) 11.9 L Hct (42 - 52 %) 35.9 L MCV (80.0 - 94.0 FL) 90.3 MCH (27.0 - 31.0 PG) 29.8 RDW (11.5 - 14.5 %) 16.8 H Plt Count (130 - 400 /CUMM) 151 MPV (7.4 - 10.4 FL) 8.4 Gran % (42.2 - 75.2 %) 91.8 H Lymphocytes % (20.5 - 51.1 %) 4.6 L Monocytes % (1.7 - 9.3 %) 3.3 Eosinophils % (0 - 5 %) 0.1 Basophils % (0.0 - 2.0 %) 0.2 Absolute Granulocytes (1.4 - 6.5 /CUMM) 7.8 H Segmented Neutrophils (42.2 - 75.2 %) 86 H Band Neutrophils (0.0 - 5.0 %) 5 Absolute Lymphocytes (1.2 - 3.4 /CUMM) 0.4 L Lymphocytes (20.5 - 51.1 %) 6 L Monocytes (1.7 - 9.3 %) 3 Absolute Monocytes (0.10 - 0.60 /CUMM) 0.3 Absolute Eosinophils (0.0 - 0.7 /CUMM) 0 Absolute Basophils (0.0 - 0.2 /CUMM) 0 Platelet Estimate (ADEQUATE) ADEQUATE Normocytic RBCs VERIFIED Hypochromic-Microcytic 1+ PUBS MCHC (33.0 - 37.0 G/DL) 33.0 Other Body Source Fld Total RBCs Counted (%) 100 Last 24 Hours of Robbin Results: Blood cultures June 23 negative Urine culture June 23 negative Assessment/Plan Impression: Stable status post exploratory laparotomy 2 days ago for what was felt to be a sealed perforation of sigmoid diverticulosis, resulting in free air that was seen on the CT scan of the abdomen and pelvis. He remains afebrile (on steroids ) with white blood cell count normal on Ceftriaxone and Flagyl. Suggestion: 1. Continue Ceftriaxone and Flagyl
[2016-06-25 16:00] VITALS: BP 158/94
[2016-06-26] VITALS: BP 162/90
[2016-06-26 05:08] LABS: ABSOLUTE BASOPHIL COUNT 0.1 /CUMM (0.0-0.2); ABSOLUTE EOSINOPHIL COUNT 0 /CUMM (0.0-0.7); ABSOLUTE GRANULOCYTE CT 7.9 /CUMM (1.4-6.5); ABSOLUTE LYMPH COUNT 0.5 /CUMM (1.2-3.4); ABSOLUTE MONOCYTE COUNT 0.3 /CUMM (0.10-0.60); BASOPHIL % 1.3 % (0.0-2.0); EOSINOPHIL % 0.1 % (0-5); HEMATOCRIT 33.1 % (42-52); MEAN CORPUSCULAR HGB 30.2 PG (27.0-31.0); MEAN CORPUSCULAR HGB CONC 33.4 G/DL (33.0-37.0); MEAN CORPUSCULAR VOLUME 90.3 FL (80.0-94.0); MEAN PLATELET VOLUME 9.1 FL (7.4-10.4); PLATELET COUNT 150 /CUMM (130-400); RBC DISTRIBUTION WIDTH 16.5 % (11.5-14.5); RED BLOOD CELL CT 3.66 /CUMM (4.70-6.10); WHITE BLOOD CELL COUNT 8.9 /CUMM (4.8-10.8)
[2016-06-26 05:36] LABS: GRANULOCYTE % 89.3 % (42.2-75.2)
--- NOTE | 2016-06-26 06:34 | PN- General Surgery ---
Subjective Subjective: pod#3 ex lap washout perf divertic much improved this am less abd pain denies cp, sob, no n+v with diet +flatus, no bm Objective Vital Signs and I&Os Vital Signs Date Time Temp Pulse Resp B/P Pulse O2 O2 Flow FiO2 Ox Delivery Rate 06/26 0400 97 Room Air 06/26 0000 97 Room Air 06/26 0000 99.1 58 12 162/90 97 Room Air 06/25 2000 98 Room Air 06/25 1600 98.8 65 16 158/94 93 Room Air Room Air 06/25 1600 96 Room Air Room Air 06/25 1200 99 Room Air Room Air 06/25 0800 97 Room Air Room Air 06/25 0700 58 16 151/88 98 Room Air Intake & Output 06/26 0800 06/26 0000 06/25 1600 06/25 0800 06/25 0000 06/24 1600 Intake Total 914.6 1010.1 1035 736 517.0 1143.0 Output Total 804 783 3332 7801 848 5128 Balance 484.6 350.1 -20 -464 -453.0 -812.0 Intake, IV 686 537 3547 706 100 654 Intake, Lipid 104.7 158.0 64.0 77.0 Intake, Oral 0 0 0 Intake, Other 90 150 30 30 25 Intake, 599.9 572.1 323 387 TPN/PPN Number 0 0 0 Bowel Movements Output, 5 15 0 30 20 55 Drainage Output, 75 20 80 150 50 250 Gastric Drainage Output, Urine 350 783 152 9876 900 1650 Physical Exam: cv: rrr lungs: clear abd: low abd tenderness to palp drsg dry minimal zachery output hypoactive bs ext: warm no edema Assessment/Plan Assessment/Plan surgical improved plan cont abx oob/ambulate with pt prob transfer to floor today await improved bowel function Core Measures/Miscellaneous Venous Thromboembolism VTE Risk Factors: Age > 40, Cancer/chemo/oth therapy, Surgery VTE Contraindications: No Contraindications VTE Prophylaxis Ordered Inpt Mech & Pharm VTE Diagnosis: No Beta Angela Is Beta Angela a Home Med? No Antibiotics Is Patient on Antibiotics? Yes If Yes: infection
--- NOTE | 2016-06-26 07:12 | PN- Resident CRCU ---
Subjective HPI/CRCU Issues: No acute events overnight. Patient seen and examined this morning. He feels much improved. He passed flatus but did not have a bowel movement yet. He was out bed yesterday and ambulated. His pain is better-controlled today. He remains comfortable and with good oxygen saturation on room air. Objective Vital Signs & I&O Last 8 Hrs of Vitals and I&O: Vital Signs Date Time Temp Pulse Resp B/P Pulse O2 O2 Flow FiO2 Ox Delivery Rate 06/26 1200 96 Room Air Room Air 06/26 0800 99 Room Air Room Air 06/26 0800 99.4 60 18 150/78 98 Room Air Room Air 06/26 0400 97 Room Air 06/26 0000 97 Room Air 06/26 0000 99.1 58 12 162/90 97 Room Air 06/25 2000 98 Room Air 06/25 1600 98.8 65 16 158/94 93 Room Air Room Air 06/25 1600 96 Room Air Room Air Exam General Appearance: no apparent distress, alert, awake, anxious Head: right face swollen and indurated, stable Ears, Nose, Throat: ET tube in place Respiratory: no respiratory distress, lungs clear Cardiovascular: regular rate/rhythm, normal S1 and S2, no murmurs, rubs or gallops Gastrointestinal: soft, tenderness to palpation on lower abdomen, no guarding or rebounding, positive bowel sounds Extremities: no edema, no clubbing or cyanosis Skin: normal color, warm/dry Current Medications: Current Medications Sig/Lisa Start time Last Medication Dose Route Stop Time Status Admin Acetaminophen 1,000 MG Q6P PRN 06/23 0600 AC 06/24 N/A 1 UNIT IV 0548 Atorvastatin Calcium 40 MG [id number] 06/23 1700 AC 06/25 PO 1923 Bisacodyl 10 MG DAILY 06/26 1113 AC KS Bisacodyl 10 MG DAILY 06/25 1028 DC KS Ceftriaxone Sodium 1,000 MG 2200 06/23 2200 AC 06/25 IV 2204 Dexamethasone 4 MG DAILY 06/24 1000 AC 06/26 Dextrose/Water 50 ML IV 1028 Diclofenac Sodium 1 ADDY 4 TIMES/DAY 06/25 1826 AC 06/26 TOP 1028 Fat Emulsion 350 ML Q24H 06/26 1900 AC Intravenous IV 06/27 1859 Fat Emulsion 350 ML Q24H 06/25 1900 AC 06/25 Intravenous IV 06/26 1859 1924 Fat Emulsion 300 ML 06/24 1900 DC 06/24 Intravenous IV 06/25 185 194 Fentanyl Citrate 25 MCG Q72H 06/23 1415 06/23 TOP 1855 Gabapentin 100 MG Q8 06/23 1413 AC 06/26 PO 0554 Heparin Sodium 5,000 UNIT Q8 06/23 0600 06/26 (Porcine) SC 0555 Hydromorphone HCl 1 MG Q4P PRN 06/25 1015 06/25 IV 1449 Insulin Human Regular 0 Q6 06/23 1800 06/26 SC 0554 Ketorolac 15 MG Q8P PRN 06/25 1215 06/26 Tromethamine IV 1028 Magnesium Hydroxide 30 ML BID 06/25 1845 06/26 PO 1028 Magnesium Hydroxide 30 ML BID 06/25 1026 DC PO Metronidazole 500 MG Q8H 06/23 1000 06/26 N/A 1 UNIT IV 1028 Morphine Sulfate 10 MG Q6P PRN 06/23 1415 PO Ondansetron HCl 4 MG Q6P PRN 06/25 1200 AC 06/25 IV 1923 Pantoprazole Sodium 40 MG DAILY 06/23 1043 06/26 IV 1028 Potassium Chloride 20 MEQ ONCE ONE 06/25 184 DC 06/25 PO 06/25 184 192 Total Parenteral 1 UNIT 06/26 190 AC Nutrition IV 06/27 185 Total Parenteral 1 UNIT ONE 06/25 1900 06/25 Nutrition IV 06/26 1858 192 Total Parenteral 1 UNIT 06/24 190 DC 06/24 Nutrition IV 06/25 Results Results: Laboratory Tests 06/26 0437 Chemistry Sodium (137 - 145 mmol/L) 137 Potassium (3.5 - 5.1 mmol/L) 4.3 Chloride (98 - 107 mmol/L) 104 Carbon Dioxide (22 - 30 mmol/L) 28 Anion Gap (5 - 16) 6 BUN (9 - 20 mg/dL) 17 Creatinine (0.7 - 1.2 mg/dL) 0.4 L Estimated GFR (>60 ml/min) > 60 Glucose (65 - 99 mg/dL) 109 H Calcium (8.4 - 10.2 mg/dL) 8.1 L Phosphorus (2.5 - 4.5 mg/dL) 3.2 Magnesium (1.6 - 2.3 mg/dL) 2.1 Total Bilirubin (0.2 - 1.3 mg/dL) 0.4 AST (17 - 59 U/L) 15 L ALT (21 - 72 U/L) 34 Albumin (3.5 - 5.0 g/dL) 2.3 L Hematology CBC w Diff NO MAN DIFF REQ WBC (4.8 - 10.8 /CUMM) 8.9 RBC (4.70 - 6.10 /CUMM) 3.66 L Hgb (14.0 - 18.0 G/DL) 11.1 L Hct (42 - 52 %) 33.1 L MCV (80.0 - 94.0 FL) 90.3 MCH (27.0 - 31.0 PG) 30.2 RDW (11.5 - 14.5 %) 16.5 H Plt Count (130 - 400 /CUMM) 150 MPV (7.4 - 10.4 FL) 9.1 Gran % (42.2 - 75.2 %) 89.3 H Lymphocytes % (20.5 - 51.1 %) 5.7 L Monocytes % (1.7 - 9.3 %) 3.6 Eosinophils % (0 - 5 %) 0.1 Basophils % (0.0 - 2.0 %) 1.3 Absolute Granulocytes (1.4 - 6.5 /CUMM) 7.9 H Absolute Lymphocytes (1.2 - 3.4 /CUMM) 0.5 L Absolute Monocytes (0.10 - 0.60 /CUMM) 0.3 Absolute Eosinophils (0.0 - 0.7 /CUMM) 0 Absolute Basophils (0.0 - 0.2 /CUMM) 0.1 PUBS MCHC (33.0 - 37.0 G/DL) 33.4 Impression/Plan Impression/Problem List Impression: 76 y/o M with PMHx of 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 Problem List: 1. S/P exploratory laparotomy 2. Sigmoid diverticulosis 3. Perforation of large intestine 4. Squamous cell carcinoma of mouth Pain Ratin Tomorrow's Labs & Rationales: CBC and ICU bundle (ICU patient) Plan Respiratory: Respiratory status stable post-extubation. Satting well and without shortness of breath on room air. Infectious Diseases: #Perforated sigmoid diverticulosis: POD #3 s/p exploratory laparotomy and abdominal washout. Remains afebrile and without leukocytosis. On day 4 of ceftriaxone and Flagyl. Passed flatus on aggressive bowel regimen, but no bowel movement yet. * ID following. Appreciate their recs. * Post-operative management per surgery team. * Continue ceftriaxone 1 g IV daily and Flagyl 500 mg IV Q8H for a total of 5-7 days. * Administer daily Dulcolax suppositories for constipation. Hold for loose stools. * Give milk of magnesia twice daily through NG tube. * Avoid administering enemas. * Zofran PRN for nausea and vomiting. * Continue Protonix 40 mg IV daily. * Continue out of bed and ambulation with physical therapy. Cardiovascular: #Hypertension/bradycardia: Blood pressures have been elevated to 170s/90s this admission and patient has been having intermittent episodes of bradycardia to 50s. Patient does not have any significant cardiac history and reports that his blood pressure usually runs low at home. * Cardiology consulted. Appreciate their recs. * Will transfer patient to telemetry. Hematology: H/H stable post-op, 11.33.1. Metabolic: Replete to K > 4, Mg > 2 and Phos > 3. Alimentary: TPN Neurological: AAO x3. #Pain: * Dilaudid 1 mg IV Q4H PRN and Toradol 15 mg IV Q8H PRN (scale 7-10). * Continue home gabapentin 100 mg PO BID and liquid morphine for pain once able to take PO. 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 Appreciate their recs. * Continue prior to admission dexamethasone 4 mg daily for inflammation.
[2016-06-26 08:00] VITALS: BP 150/78
--- NOTE | 2016-06-26 10:02 | PN- Infect Dx ---
Subjective Subjective: Afebrile on steroids. He feels improved and has passed gas. Objective Last 24 Hrs of Vital Signs/I&O Vital Signs Date Time Temp Pulse Resp B/P Pulse O2 O2 Flow FiO2 Ox Delivery Rate 06/26 0800 99 Room Air Room Air 06/26 0800 99.4 60 18 150/78 98 Room Air Room Air 06/26 0400 97 Room Air 06/26 0000 97 Room Air 06/26 0000 99.1 58 12 162/90 97 Room Air 06/25 2000 98 Room Air 06/25 1600 98.8 65 16 158/94 93 Room Air Room Air 06/25 1600 96 Room Air Room Air 06/25 1200 99 Room Air Room Air Intake & Output 06/26 1600 06/26 0800 06/26 0000 Intake Total 914.6 1010.1 Output Total 430 660 Balance 484.6 350.1 Intake, IV 120 130 Intake, Lipid 104.7 158.0 Intake, Oral 0 0 Intake, Other 90 150 Intake, 599.9 572.1 TPN/PPN Number 0 Bowel Movements Output, 5 15 Drainage Output, 75 20 Gastric Drainage Output, Urine 350 625 Physical Exam Other Physical Findings: He appears comfortable in no acute distress HEENT right facial swelling unchanged; NG tube remains in place Lungs are clear Heart regular rhythm with no murmur Abdomen soft, tender on minimal palpation, with positive bowel sounds Extremities no cyanosis, clubbing or edema Results Last 24 Hours of Lab Results: Laboratory Tests 06/26 0437 Chemistry Sodium (137 - 145 mmol/L) 137 Potassium (3.5 - 5.1 mmol/L) 4.3 Chloride (98 - 107 mmol/L) 104 Carbon Dioxide (22 - 30 mmol/L) 28 Anion Gap (5 - 16) 6 BUN (9 - 20 mg/dL) 17 Creatinine (0.7 - 1.2 mg/dL) 0.4 L Estimated GFR (>60 ml/min) > 60 Glucose (65 - 99 mg/dL) 109 H Calcium (8.4 - 10.2 mg/dL) 8.1 L Phosphorus (2.5 - 4.5 mg/dL) 3.2 Magnesium (1.6 - 2.3 mg/dL) 2.1 Total Bilirubin (0.2 - 1.3 mg/dL) 0.4 AST (17 - 59 U/L) 15 L ALT (21 - 72 U/L) 34 Albumin (3.5 - 5.0 g/dL) 2.3 L Hematology CBC w Diff NO MAN DIFF REQ WBC (4.8 - 10.8 /CUMM) 8.9 RBC (4.70 - 6.10 /CUMM) 3.66 L Hgb (14.0 - 18.0 G/DL) 11.1 L Hct (42 - 52 %) 33.1 L MCV (80.0 - 94.0 FL) 90.3 MCH (27.0 - 31.0 PG) 30.2 RDW (11.5 - 14.5 %) 16.5 H Plt Count (130 - 400 /CUMM) 150 MPV (7.4 - 10.4 FL) 9.1 Gran % (42.2 - 75.2 %) 89.3 H Lymphocytes % (20.5 - 51.1 %) 5.7 L Monocytes % (1.7 - 9.3 %) 3.6 Eosinophils % (0 - 5 %) 0.1 Basophils % (0.0 - 2.0 %) 1.3 Absolute Granulocytes (1.4 - 6.5 /CUMM) 7.9 H Absolute Lymphocytes (1.2 - 3.4 /CUMM) 0.5 L Absolute Monocytes (0.10 - 0.60 /CUMM) 0.3 Absolute Eosinophils (0.0 - 0.7 /CUMM) 0 Absolute Basophils (0.0 - 0.2 /CUMM) 0.1 PUBS MCHC (33.0 - 37.0 G/DL) 33.4 Last 24 Hours of Robbin Results: Blood cultures June 23 remain negative Assessment/Plan Impression: Stable status post exploratory laparotomy 3 days ago for what was felt to be a sealed perforation of sigmoid diverticulosis, resulting in free air that was seen on the CT scan of the abdomen and pelvis. He remains afebrile (on steroids ) with white blood cell count normal on Ceftriaxone and Flagyl. Suggestion: 1. Continue Ceftriaxone and Flagyl
--- NOTE | 2016-06-26 10:14 | PN- CRCU ---
Subjective HPI/Critical Care Issues: The patient is awake and alert. His respiratory status remained stable post extubation. He has no respiratory complaints. He was out of bed yesterday and ambulated, but complains the chair was uncomfortable. His pain has improved overall, and at present. He is eager to begin a diet. He has had minimal output of his NG tube. The patient did not have a bowel movement despite aggressive bowel regimen. His blood pressure has been intermittently elevated and his heart rate has been in the 50s. Objective Current Medications: Current Medications Sig/Lisa Start time Last Medication Dose Route Stop Time Status Admin Acetaminophen 1,000 MG Q6P PRN 06/23 0600 AC 06/24 N/A 1 UNIT IV 0548 Atorvastatin Calcium 40 MG [id number]@1700 06/23 1700 AC 06/25 PO 1923 Bisacodyl 10 MG DAILY 06/[address] Ceftriaxone Sodium 1,000 MG 2200 06/23 2200 AC 06/25 IV 2204 Dexamethasone 4 MG DAILY 06/24 1000 AC 06/25 Dextrose/Water 50 ML IV 1002 Diclofenac Sodium 1 ADDY 4 TIMES/DAY 06/25 1826 AC 06/25 TOP 2204 Fat Emulsion 350 ML Q24H 06/26 1900 AC Intravenous IV 06/27 1859 Fat Emulsion 350 ML Q24H 06/25 1900 AC 06/25 Intravenous IV 06/26 1859 1924 Fat Emulsion 300 ML 1900 06/24 1900 DC 06/24 Intravenous IV 06/25 1859 1948 Fentanyl Citrate 25 MCG Q72H 06/23 1415 AC 06/23 TOP 1855 Gabapentin 100 MG Q8 06/23 1413 AC 06/26 PO 0554 Heparin Sodium 5,000 UNIT Q8 06/23 0600 AC 06/26 (Porcine) SC 0555 Hydromorphone HCl 1 MG Q4P PRN 06/25 1015 AC 06/25 IV 1449 Insulin Human Regular 0 Q6 06/23 1800 AC 06/26 SC 0554 Ketorolac 15 MG Q8P PRN 06/25 1215 AC 06/25 Tromethamine IV 2256 Magnesium Hydroxide 30 ML BID 06/25 1845 AC 06/25 PO 1923 Magnesium Hydroxide 30 ML BID 06/25 1026 DC PO Metronidazole 500 MG Q8H 06/23 1000 AC 06/26 N/A 1 UNIT IV 0156 Morphine Sulfate 2 MG Q8P PRN 06/24 0815 DC IV Morphine Sulfate 10 MG Q6P PRN 06/23 1415 AC PO Morphine Sulfate 2 MG Q3P PRN 06/23 0600 DC 06/25 IV 0817 Ondansetron HCl 4 MG Q6P PRN 06/25 1200 AC 06/25 IV 1923 Pantoprazole Sodium 40 MG DAILY 06/23 1043 AC 06/25 IV 1002 Potassium Chloride 20 MEQ ONCE ONE 06/25 184 DC 06/25 PO 06/25 184 192 Total Parenteral 1 UNIT 06/26 AC Nutrition IV 06/27 185 Total Parenteral 1 UNIT ONE 06/25 1900 AC 06/25 Nutrition IV 06/26 Total Parenteral 1 UNIT 06/24 190 DC 06/24 Nutrition IV 06/25 Vital Signs & I&O Last 24 Hrs of Vitals and I&O: Vital Signs Date Time Temp Pulse Resp B/P Pulse O2 O2 Flow FiO2 Ox Delivery Rate 06/26 0800 99 Room Air Room Air 06/26 0800 99.4 60 18 150/78 98 Room Air Room Air 06/26 0400 97 Room Air 06/26 0000 97 Room Air 06/26 0000 99.1 58 12 162/90 97 Room Air 06/25 2000 98 Room Air 06/25 1600 98.8 65 16 158/94 93 Room Air Room Air 06/25 1600 96 Room Air Room Air 06/25 1200 99 Room Air Room Air Intake & Output 06/26 1600 06/26 0800 06/26 0000 Intake Total 914.6 1010.1 Output Total 430 660 Balance 484.6 350.1 Intake, IV 120 130 Intake, Lipid 104.7 158.0 Intake, Oral 0 0 Intake, Other 90 150 Intake, 599.9 572.1 TPN/PPN Number 0 Bowel Movements Output, 5 15 Drainage Output, 75 20 Gastric Drainage Output, Urine 350 625 Physical Exam General Appearance: alert, awake, comfortable Head: swelling on right face, unchanged Ears, Nose, Throat: ET tube in place Respiratory: no respiratory distress, lungs clear Cardiovascular: regular rate/rhythm, no murmurs, rubs or gallops Gastrointestinal: soft, tenderness to palpation, quiet bowel sounds Extremities: no edema Skin: normal color, warm/dry Results Last 24 Hrs of Lab Results: Laboratory Tests 06/26/16 0437: Anion Gap 6, Estimated GFR > 60, Glucose 109 H, Calcium 8.1 L, Phosphorus 3.2, Magnesium 2.1, Total Bilirubin 0.4, AST 15 L, ALT 34, Albumin 2.3 L, CBC w Diff NO MAN DIFF REQ, RBC 3.66 L, MCV 90.3, MCH 30.2, RDW 16.5 H, MPV 9.1, Gran % 89.3 H, Lymphocytes % 5.7 L, Monocytes % 3.6, Eosinophils % 0.1, Basophils % 1.3, Absolute Granulocytes 7.9 H, Absolute Lymphocytes 0.5 L, Absolute Monocytes 0.3, Absolute Eosinophils 0, Absolute Basophils 0.1, PUBS MCHC 33.4 Impression/Plan Impression/Plan Impression/Plan: 1. Perforated sigmoid diverticulum, s/p exploratory laprotomy and abdominal washout. 2. Respiratory failure -stable respiratory status, now post extubation. 3. 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 4. Left lower lobe lung mass, suspicious for metastatic cancer. 5. Dysphagia. 6. Chronic constipation. 7. Malnutrition, on TPN. 8. Hypertension. 9. Asymptomatic bradycardia. Recommendations: * Continue ceftriaxone and Flagyl, follow up ID input. * Begin milk of magnesia twice a day down the NG tube. * Begin daily Dulcolax suppositories. * Further bowel regimen and NG tube management as per surgery. * Avoid enemas. * Continue TPN. * Please discuss outpatient steroid dose with oncology. * Continue with pain control. * Continue DVT/GI prophylaxis. * Monitor for symptomatic bradycardia. * If the patient's blood pressure remains elevated, we can consider a low-dose antihypertensive such as amlodipine. * Transfer to telemetry. Will sign out to the telemetry team. Code Status: Full Code
--- NOTE | 2016-06-26 14:39 | Cons- Cardiology ---
General Information and HPI Consulting Request Date of Consult: 06/26/16 Requested By: TONIE ANTON DO Reason for Consult: Bradycardia. Source of Information: patient, family, old records Exam Limitations: poor historian History of Present Illness: Mr. 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 In the ED a CT of the abdomen/pelvis revealed free air in the abdomen w/o evidence of abscess, diverticulitis and with a right inguinal hernia containing nonobstructed small bowel loops without bowel wall thickening or edema, cholelithiasis, a stented AAA, a lobular mass at the left lower lobe and an enlarged prostate. He became febrile, was started on antimicrobial therapy, and was taken to the OR for an exploratory laparotomy and abdominal washout, with a perforated sigmoid diverticulosis discovered w/o diverticulitis. No bowel resection was necessary. He was initially intubated, but steadily improved postoperatively and was extubated, but is also had some intermittent bradycardia. Allergies/Medications Allergies: Coded Allergies: Penicillins (Severe, ANAPHYLAXIS 12/12/15) amoxicillin (Severe, ANAPHYLAXIS 12/12/15) carbamazepine (From TEGRETOL) (Severe, ANAPHYLAXIS 12/12/15) clindamycin (Intermediate, HIVES 12/12/15) Home Med List: Dexamethasone 4 MG TABLET 1 TAB PO DAILY CHRONIC PAIN (Reported) Fentanyl 25 MCG/HOUR PATCH.TD72 1 PAT TOP Q3D CHRONIC PAIN (Reported) Furosemide (Lasix) 40 MG TABLET 1 TAB PO DAILY EDEMA (Reported) Gabapentin 100 MG CAPSULE 1 CAP PO TID CHRONIC PAIN (Reported) Lactose-Reduced Food (Boost High Protein) (Unknown Strength) LIQUID (Unknown Dose) PO DAILY SUPPLEMENT (Reported) Morphine Sulfate (Morphine Sulfate Elixir 10mg/5ml) 10 MG/5 ML SOLUTION 2.5-5 ML PO PRN PAIN (Reported) Rosuvastatin Calcium (Crestor) 20 MG TABLET 0.5 TAB PO EOD CHOLESTEROL ( Reported) Review of Systems Review of Systems: A 14 point system review was obtained and was noncontributory, other than as above. 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 Home Who Do You Live With? spouse Smoking Status: Former Smoker Exam & Diagnostic Data Vital Signs and I&O Vital Signs Date Time Temp Pulse Resp B/P Pulse O2 O2 Flow FiO2 Ox Delivery Rate 06/26 1200 96 Room Air Room Air 06/26 0800 99 Room Air Room Air 06/26 0800 99.4 60 18 150/78 98 Room Air Room Air 06/26 0400 97 Room Air 06/26 0000 97 Room Air 06/26 0000 99.1 58 12 162/90 97 Room Air 06/25 2000 98 Room Air Intake & Output 06/26 1600 06/26 0800 06/26 0000 06/25 1600 06/25 0800 06/25 0000 Intake Total 914.6 1010.1 1035 736 517.0 Output Total 409 395 9810 1200 970 Balance 484.6 350.1 -20 -464 -453.0 Intake, IV 520 278 3864 706 100 Intake, Lipid 104.7 158.0 64.0 Intake, Oral 0 0 0 Intake, Other 90 150 30 30 Intake, 599.9 572.1 323 TPN/PPN Number 0 0 Bowel Movements Output, 5 15 0 30 20 Drainage Output, 75 20 80 150 50 Gastric Drainage Output, Urine 350 516 869 0861 900 Physical Exam: Elderly male with some surgical facial disfigurement in no acute distress with nasal oxygen in place. Vital signs: See above. HEENT: EOMI, slightly dry mucous membranes. Neck: No JVD, no bruits. Lungs: Decreased breath sounds at the bases bilaterally. Heart: S1, S2 with no murmur, gallop, or rub appreciated. Abdomen: Soft, nontender, positive bowel sounds. Extremities: Trace to 1+ bilateral lower extremity edema. Labs/Robbin Results: Laboratory Tests 06/26 06/25 0437 0500 Chemistry Sodium (137 - 145 mmol/L) 137 137 Potassium (3.5 - 5.1 mmol/L) 4.3 3.5 Chloride (98 - 107 mmol/L) 104 101 Carbon Dioxide (22 - 30 mmol/L) 28 33 H Anion Gap (5 - 16) 6 4 L BUN (9 - 20 mg/dL) 17 13 Creatinine (0.7 - 1.2 mg/dL) 0.4 L 0.4 L Estimated GFR (>60 ml/min) > 60 > 60 Glucose (65 - 99 mg/dL) 109 H 96 Calcium (8.4 - 10.2 mg/dL) 8.1 L 8.1 L Phosphorus (2.5 - 4.5 mg/dL) 3.2 2.8 Magnesium (1.6 - 2.3 mg/dL) 2.1 2.1 Total Bilirubin (0.2 - 1.3 mg/dL) 0.4 0.5 AST (17 - 59 U/L) 15 L 18 ALT (21 - 72 U/L) 34 36 Albumin (3.5 - 5.0 g/dL) 2.3 L 2.4 L Hematology CBC w Diff NO MAN DIFF REQ MAN DIFF ORDERED WBC (4.8 - 10.8 /CUMM) 8.9 8.4 RBC (4.70 - 6.10 /CUMM) 3.66 L 3.98 L Hgb (14.0 - 18.0 G/DL) 11.1 L 11.9 L Hct (42 - 52 %) 33.1 L 35.9 L MCV (80.0 - 94.0 FL) 90.3 90.3 MCH (27.0 - 31.0 PG) 30.2 29.8 RDW (11.5 - 14.5 %) 16.5 H 16.8 H Plt Count (130 - 400 /CUMM) 150 151 MPV (7.4 - 10.4 FL) 9.1 8.4 Gran % (42.2 - 75.2 %) 89.3 H 91.8 H Lymphocytes % (20.5 - 51.1 %) 5.7 L 4.6 L Monocytes % (1.7 - 9.3 %) 3.6 3.3 Eosinophils % (0 - 5 %) 0.1 0.1 Basophils % (0.0 - 2.0 %) 1.3 0.2 Absolute Granulocytes (1.4 - 6.5 /CUMM) 7.9 H 7.8 H Segmented Neutrophils (42.2 - 75.2 %) 86 H Band Neutrophils (0.0 - 5.0 %) 5 Absolute Lymphocytes (1.2 - 3.4 /CUMM) 0.5 L 0.4 L Lymphocytes (20.5 - 51.1 %) 6 L Monocytes (1.7 - 9.3 %) 3 Absolute Monocytes (0.10 - 0.60 /CUMM) 0.3 0.3 Absolute Eosinophils (0.0 - 0.7 /CUMM) 0 0 Absolute Basophils (0.0 - 0.2 /CUMM) 0.1 0 Platelet Estimate (ADEQUATE) ADEQUATE Normocytic RBCs VERIFIED Hypochromic-Microcytic 1+ PUBS MCHC (33.0 - 37.0 G/DL) 33.4 33.0 Other Body Source Fld Total RBCs Counted (%) 100 Diagnostic Data EKG Results (06/22/2016) sinus rhythm possible old inferior wall myocardial infarction, abnormal precordial R wave progression versus incorrect lead placement, cannot exclude old anterior wall myocardial infarction, and nonspecific T-wave flattening in diffuse leads. Significant baseline artifact. CXR Results (06/24/2016) Endotracheal tube catheter 5 cm above the uri. Lungs clear. Free air under right diaphragm. Other Results CT abdomen/pelvis (06/22/2016) 1. There is free air in the abdomen. There is a small amount of fluid and haziness of the mid mesentery but no abscess seen. There is marked diverticulosis of left colon and sigmoid but no specific bowel wall thickening to suggest a diverticulitis. There is a right inguinal hernia containing a nonobstructed small bowel loops without bowel wall thickening or edema. The source of the bowel perforation therefore is uncertain whether its related to the colonic diverticulosis or the small bowel hernia. 2. Cholelithiasis. 3. Stent abdominal aortic aneurysm. 4. Increasing size of lobular mass at the left lower lobe. Follow-up CT of chest of contrast would be helpful. This is suspected for metastatic disease given patient's history of squamous cell cancer of the oral cavity. 5. Stable cystic lesions in the pancreas. 6. Stable cystic lesions of the liver. 7. Enlarged prostate. Assessment/Plan Assessment/Plan Mr. Forbes is an elderly male with a history of hypertension, dyslipidemia, metastatic (including brain) squamous cell carcinoma of the mouth, diagnosed 2 years prior to admission, s/p surgery, radiation and chemotherapy ( nivolumab) who was admitted 06/22/2016 with acute right lower quadrant/groin pain and swelling with CT evidence of free air in the abdomen for which she ultimately was taken to the OR for exploratory laparotomy and abdominal washout and the discovery of a perforated sigmoid diverticulum for which bowel resection was not deemed necessary who we are asked to evaluate for bradycardia. The differential diagnosis for 's bradycardia is extensive and can be broadly categorized as being secondary to intrinsic or extrinsic causes. In this case an extrinsic etiology is more likely given the multiple medications he is on, many of which are known to cause bradycardia including hydromorphone, gabapentin, morphine sulfate, and the fentanyl patch. Other extrinsic etiologies which need to be excluded include other drugs, hypothyroidism, intracranial hypertension, etc. Of the intrinsic causes of bradycardia one has to consider ischemic heart disease, hypertensive heart disease, cardiomyopathy, idiopathic degenerative disorders, certain infections, viral myocarditis, Lyme disease, etc. Naturally, given 's multiple comorbidities would defer any invasive cardiac evaluation, at this time. Recommendations: * Continue on telemetry, repeat 12-lead electrocardiogram, given significant artifact on reviews tracing. * Review his present pain regimen and assess the appropriateness of discontinuing some of the agents that are more commonly associated with bradycardia including hydromorphone. * Obtain an echocardiogram to help exclude a cardiomyopathy, evidence of previous myocardial infarction, etc. * Obtain blood work to assess for hypothyroidism, hyperkalemia, etc. * If better blood pressure control is necessary would avoid agents that can cause bradycardia including: non-dihydropyridine calcium channel antagonists ( diltiazem, verapamil, etc.), beta blockers, alpha 2 adrenergic agonists ( clonidine), etc. and would consider agents such as dihydropyridine calcium channel antagonists (amlodipine, nicardipine, etc.) or antihypertensive vasodilators (hydralazine). * Given his history of brain metastases would consider a head CT. * Continue DVT prophylaxis. Consult Acknowledgment - Thank you for your consult request.
[2016-06-26 16:00] VITALS: BP 138/70
[2016-06-26 18:54] VITALS: BP 156/84
[2016-06-26 23:32] VITALS: BP 130/80
--- NOTE | 2016-06-27 07:02 | PN- Oncology ---
Subjective Subjective: Minimal groin pain, had 2 bowel movements Review of Systems: 12 point review of systems otherwise nonspecific Objective Vital Signs and I&Os Vital Signs Date Time Temp Pulse Resp B/P Pulse O2 O2 Flow FiO2 Ox Delivery Rate 06/26 2332 98.0 61 18 130/80 97 Room Air 06/26 1854 97.9 53 18 156/84 96 06/26 1600 99 Room Air Room Air 06/26 1600 98.3 61 16 138/70 98 Room Air Room Air 06/26 1200 96 Room Air Room Air 06/26 0800 99 Room Air Room Air 06/26 0800 99.4 60 18 150/78 98 Room Air Room Air Intake & Output 06/27 0800 06/27 0000 06/26 1600 06/26 0800 06/26 0000 06/25 1600 Intake Total 1382.0 877 914.6 1010.1 1035 Output Total 570 351 231 556 5920 Balance 812.0 526 484.6 350.1 -20 Intake, IV 600 867 495 098 8308 Intake, Lipid 117.0 104.7 158.0 Intake, Oral 0 0 0 0 0 Intake, Other 10 90 150 Intake, 665 599.9 572.1 TPN/PPN Number 0 Bowel Movements Output, 20 0 5 15 0 Drainage Output, 50 75 20 80 Gastric Drainage Output, Stool 1 Output, Urine 550 300 350 625 975 Gen.: in NAD ENT: Sclera anicteric Chest: Normal respiratory effort, clear breath sounds Cor: RRR, no extra sounds Abdomen: Soft, bowel sounds present, no deficient tenderness, no rebound Extremities: Without clubbing, cyanosis, or edema Neurology: Alert and oriented 3, Current Medications: Current Medications Sig/Lisa Start time Last Medication Dose Route Stop Time Status Admin Acetaminophen 1,000 MG Q6P PRN 06/23 0600 AC 06/24 N/A 1 UNIT IV 0548 Atorvastatin Calcium 40 MG [id number] 06/23 1700 AC 06/25 PO 1923 Bisacodyl 10 MG DAILY 06/26 1113 AC 06/26 [place] 1443 Ceftriaxone Sodium 1,000 MG 0 06/23 2200 AC 06/26 IV 2038 Dexamethasone 4 MG DAILY 06/24 1000 AC 06/26 Dextrose/Water 50 ML IV 1028 Diclofenac Sodium 1 ADDY 4 TIMES/DAY 06/25 182 AC 06/26 TOP 2039 Fat Emulsion 350 ML Q24H 06/26 1900 AC 06/26 Intravenous IV 06/27 1859 1930 Fat Emulsion 350 ML Q24H 06/25 1900 DC 06/25 Intravenous IV 06/26 1859 1924 Fentanyl Citrate 25 MCG Q72H 06/23 1415 AC 06/26 TOP 1450 Gabapentin 100 MG Q8 06/23 1413 AC 06/26 PO 1444 Heparin Sodium 5,000 UNIT Q8 06/23 0600 AC 06/27 (Porcine) SC 0611 Hydromorphone HCl 1 MG Q4P PRN 06/25 1015 06/27 IV 0615 Insulin Human Regular 0 Q6 06/23 1800 AC 06/27 SC 0619 Ketorolac 15 MG Q8P PRN 06/25 1215 06/26 Tromethamine IV 2038 Magnesium Hydroxide 30 ML BID 06/25 1845 AC 06/26 PO 1028 Metronidazole 500 MG Q8H 06/23 1000 AC 06/27 N/A 1 UNIT IV 0225 Morphine Sulfate 10 MG Q6P PRN 06/23 1415 DC PO Ondansetron HCl 4 MG Q6P PRN 06/25 1200 AC 06/25 IV 1923 Pantoprazole Sodium 40 MG DAILY 06/23 1043 06/26 IV 1028 Sodium Chloride 1,000 ML Q20H 06/26 1630 AC 06/26 IV 1630 Total Parenteral 1 UNIT 1900 06/26 1900 AC 06/26 Nutrition IV 06/27 1859 1930 Total Parenteral 1 UNIT ONE 06/25 1900 DC 06/25 Nutrition IV 06/26 1859 1924 Assessment/Plan Assessment/Recommendations: 1. Bowel perforation-clinically stable 2. Advanced head and neck [id number] as outpatient Hopefully patient can be discharged soon to home
--- NOTE | 2016-06-27 07:36 | PN- General Surgery ---
See Addendum Subjective Subjective: POD #4 s/p washout of abdomen d/t perforated sigmoid diverticulosis (? constipation). Had BM yesterday and this morning. Passing flatus, asking to eat. Ambulating with assist of one. Voiding spontaneously. Pain well controlled. Denies CP/SOB, N/V, F/C. Objective Vital Signs and I&Os Vital Signs Date Time Temp Pulse Resp B/P Pulse O2 O2 Flow FiO2 Ox Delivery Rate 06/26 2332 98.0 61 18 130/80 97 Room Air 06/26 1854 97.9 53 18 156/84 96 06/26 1600 99 Room Air Room Air 06/26 1600 98.3 61 16 138/70 98 Room Air Room Air 06/26 1200 96 Room Air Room Air 06/26 0800 99 Room Air Room Air 06/26 0800 99.4 60 18 150/78 98 Room Air Room Air Intake & Output 02/ 0800 02 0000 06/26 1600 06/26 0800 06/26 0000 06/25 1600 Intake Total 1382.0 877 914.6 1010.1 1035 Output Total 570 351 495 535 2097 Balance 812.0 526 484.6 350.1 -20 Intake, IV 600 867 734 070 0162 Intake, Lipid 117.0 104.7 158.0 Intake, Oral 0 0 0 0 0 Intake, Other 10 90 150 Intake, 665 599.9 572.1 TPN/PPN Number 1 0 Bowel Movements Output, 20 0 5 15 0 Drainage Output, 50 75 20 80 Gastric Drainage Output, Stool 1 Output, Urine 550 300 350 625 975 Physical Exam: Gen: AAOx3 in NAD Cor: s1+S2+ Lungs: CTA destinee Abd: soft, NT, ND, +BS x4. Incision intact with sammy, minimal serous drainage noted. ZULEIMA x2 intact with serous output. Ext: no edema or calf tenderness to destinee lower extremities. ZULEIMA #1: 0/24 hours ZULEIMA #2: 20ml/24 hours Assessment/Plan Assessment/Plan A: POD #4 s/p exploratory laparotomy, washout and drain placement for perforated diverticulosis; AVSS. Plan: Continue IV Ceftriaxone/Flagyl. OOB and ambulate with PT. Clear liquids today. Will likely wean TPN today. ?removal of ZULEIMA #1 today. Team to discuss with test inspection engineer attending. Regarding diet: patient states he can have soft food. It does not need to be pureed (in fact he hates pureed anything). Eggs, farina, oatmeal, some breads ( ciabatta) are all ok. Core Measures/Miscellaneous Venous Thromboembolism VTE Risk Factors: Age > 40, Cancer/chemo/oth therapy, Surgery VTE Contraindications: No Contraindications VTE Prophylaxis Ordered Inpt Mech & Pharm VTE Diagnosis: No Beta Angela Is Beta Angela a Home Med? No Antibiotics Is Patient on Antibiotics? Yes If Yes: infection
--- NOTE | 2016-06-27 07:58 | PN- Medicine Consult ---
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 Plan: Status post explore category laparotomy washout and drain placement day 4 Patient has remained afebrile with stable vital signs and is saturating well on room air Patient has opened bowel twice and is passing gas. Still covered by Flagyl and ceftriaxone Continue to advance diet per surgery Continue to follow ID recommendations Advanced head and neck cancer Patient is being followed by hematology oncologist Dr. Ochoa Further management will continue as outpatient Asymptomatic bradycardia Patient noted to be bradycardic yesterday and reviewed by preparing box tender. Avoid bradycardia inducing medications Overnight heart rate remained between 51 and 53 Problem List: 1. S/P exploratory laparotomy 2. Head and neck cancer 3. Bradycardia Subjective Subjective: Reviewed the patient seated comfortably on the bed he has no respiratory distress. The patient reported to have slept well is feeling hungry and is ready to eat. He had 2 bowel motions and is also passing gas. He denies any fevers or chills overnight. He has no lightheadedness or dizziness. Review of Systems Constitutional: Denies: chills, fever. Cardiovascular: Denies: chest pain, palpitations. Respiratory: Denies: cough, short of breath. Gastrointestinal: Denies: abdominal pain, nausea, vomiting. Genitourinary: Denies: no symptoms. Comments: All other systems reviewed and are negative Objective Last 24 Hrs of Vital Signs/I&O Vital Signs Date Time Temp Pulse Resp B/P Pulse O2 O2 Flow FiO2 Ox Delivery Rate 06/27 1627 98.0 67 18 121/71 97 Room Air 06/27 0836 97.6 51 16 138/64 95 Room Air 06/26 2332 98.0 61 18 130/80 97 Room Air 06/26 1854 97.9 53 18 156/84 96 Intake & Output 06/27 1600 06/27 0800 06/27 0000 Intake Total 358 909 0679.0 Output Total 645 220 570 Balance -165 -100 812.0 Intake, IV 600 Intake, Lipid 117.0 Intake, Oral 480 120 0 Intake, 665 TPN/PPN Number 1 1 Bowel Movements Output, 20 20 20 Drainage Output, Urine 625 200 550 Physical Exam General Appearance: no apparent distress, alert, awake Head: atraumatic Neck: supple Cardiovascular: regular rate/rhythm Respiratory: normal breath sounds, chest non-tender Abdomen: normal bowel sounds, soft Current Medications: Current Medications Sig/Lisa Start time Last Medication Dose Route Stop Time Status Admin Acetaminophen 1,000 MG Q6P PRN 06/23 0600 AC 06/24 N/A 1 UNIT IV 0548 Atorvastatin Calcium 40 MG [id number]@1700 06/23 1700 AC 06/25 PO 1923 Bisacodyl 10 MG DAILY 06/26 1113 AC 06/26 RI 1443 Ceftriaxone Sodium 1,000 MG 2200 06/23 2200 AC 06/26 IV 2038 Dexamethasone 4 MG DAILY 06/28 1000 AC PO Dexamethasone 4 MG ONCE ONE 06/27 1100 DC 06/27 PO 06/27 1101 1343 Dexamethasone 4 MG DAILY 06/24 1000 DC 06/26 Dextrose/Water 50 ML IV 1028 Diclofenac Sodium 1 ADDY 4 TIMES/DAY 06/25 1826 06/27 TOP 1343 Fat Emulsion 350 ML Q24H 06/27 1900 AC Intravenous IV 06/28 1859 Fat Emulsion 350 ML Q24H 06/26 1900 AC 06/26 Intravenous IV 06/27 1859 1930 Fat Emulsion 350 ML Q24H 06/25 1900 CO 06/25 Intravenous IV 06/26 1859 1924 Fentanyl Citrate 25 MCG Q72H 06/23 1415 06/26 TOP 1450 Gabapentin 100 MG Q8 06/23 1413 AC 06/27 PO 1343 Heparin Sodium 5,000 UNIT Q8 06/23 0600 AC 06/27 (Porcine) SC 1343 Hydromorphone HCl 1 MG Q4P PRN 06/25 1015 AC 06/27 IV 0615 Insulin Human Regular 0 TIDAC/HS 06/27 1200 AC 06/27 SC 1229 Insulin Human Regular 0 Q6 06/23 1800 DC 06/27 SC 0619 Ketorolac 15 MG Q8P PRN 06/25 1215 AC 06/27 Tromethamine IV 0938 Magnesium Hydroxide 30 ML BID 06/25 1845 AC 06/27 PO 1032 Metronidazole 500 MG Q8H 06/23 1000 AC 06/27 N/A 1 UNIT IV 1032 Morphine Sulfate 10 MG Q6P PRN 06/27 1115 AC 06/27 PO 1343 Morphine Sulfate 5 MG Q6P PRN 06/27 1045 AC PO Morphine Sulfate 10 MG Q6P PRN 06/23 1415 DC PO Ondansetron HCl 4 MG Q6P PRN 06/25 1200 AC 06/25 IV 1923 Pantoprazole Sodium 40 MG DAILY 06/23 1043 AC 06/27 IV 1031 Sodium Chloride 1,000 ML Q20H 06/26 1630 DC 06/26 IV 1630 Total Parenteral 1 UNIT 06/27 190 AC Nutrition IV 06/28 185 Total Parenteral 1 UNIT 06/26 190 AC 06/26 Nutrition IV 06/27 185 1930 Total Parenteral 1 UNIT ONE 06/25 190 DC 06/25 Nutrition IV 06/26 185 192 Results Last 24 Hrs Lab/Robbin Results: Laboratory Tests 06/27/16 1051: Anion Gap 5, Estimated GFR > 60, BUN/Creatinine Ratio 44.0 H, Calcium 8.3 L, Phosphorus 3.2, Magnesium 2.0, CBC w Diff NO MAN DIFF REQ, RBC 3.85 L, MCV 91.7 , MCH 30.2, RDW 16.6 H, MPV 8.9, Gran % 83.0 H, Lymphocytes % 7.5 L, Monocytes % 9.0, Eosinophils % 0.4, Basophils % 0.1, Absolute Granulocytes 5.9, Absolute Lymphocytes 0.5 L, Absolute Monocytes 0.6, Absolute Eosinophils 0, Absolute Basophils 0, PUBS MCHC 32.9 L 06/27/16 0500: Sodium Cancelled, Potassium Cancelled, Chloride Cancelled, Carbon Dioxide Cancelled, Anion Gap Cancelled, BUN Cancelled, Creatinine Cancelled, Glucose Cancelled, Calcium Cancelled, Phosphorus Cancelled, Magnesium Cancelled, Total Bilirubin Cancelled, AST Cancelled, ALT Cancelled, Albumin Cancelled, CBC w Diff Cancelled, WBC Cancelled, RBC Cancelled, Hgb Cancelled, Hct Cancelled, MCV Cancelled, MCH Cancelled, RDW Cancelled, Plt Count Cancelled, MPV Cancelled, PUBS MCHC Cancelled
[2016-06-27 08:36] VITALS: BP 138/64
--- NOTE | 2016-06-27 11:33 | PN- Infect Dx ---
Subjective Subjective: Afebrile on steroids. He continues to report mild abdominal discomfort. He has passed several bowel movements. Objective Last 24 Hrs of Vital Signs/I&O Vital Signs Date Time Temp Pulse Resp B/P Pulse O2 O2 Flow FiO2 Ox Delivery Rate 06/27 0836 97.6 51 16 138/64 95 Room Air 06/26 2332 98.0 61 18 130/80 97 Room Air 06/26 1854 97.9 53 18 156/84 96 06/26 1600 99 Room Air Room Air 06/26 1600 98.3 61 16 138/70 98 Room Air Room Air 06/26 1200 96 Room Air Room Air Intake & Output 06/27 1600 06/27 0800 06/27 0000 Intake Total 120 1382.0 Output Total 220 570 Balance -100 812.0 Intake, IV 600 Intake, Lipid 117.0 Intake, Oral 120 0 Intake, 665 TPN/PPN Number 1 Bowel Movements Output, 20 20 Drainage Output, Urine 200 550 Physical Exam Other Physical Findings: He appears comfortable in no acute distress Lungs are clear Heart regular rhythm with no murmur Abdomen is soft, tender on minimal palpation, with positive bowel sounds; 2 ZULEIMA drains remain in place Extremities no cyanosis, clubbing or edema Results Last 24 Hours of Lab Results: Laboratory Tests 06/27 06/27 1051 0500 Chemistry Sodium Pending Cancelled Potassium Pending Cancelled Chloride Pending Cancelled Carbon Dioxide Pending Cancelled Anion Gap Pending Cancelled BUN Pending Cancelled Creatinine Pending Cancelled BUN/Creatinine Ratio Pending Glucose Cancelled Calcium Pending Cancelled Phosphorus Pending Cancelled Magnesium Pending Cancelled Total Bilirubin Cancelled AST Cancelled ALT Cancelled Albumin Cancelled Hematology CBC w Diff Pending Cancelled WBC Pending Cancelled RBC Pending Cancelled Hgb Pending Cancelled Hct Pending Cancelled MCV Pending Cancelled MCH Pending Cancelled RDW Pending Cancelled Plt Count Pending Cancelled MPV Pending Cancelled PUBS MCHC Pending Cancelled Last 24 Hours of Robbin Results: Blood cultures June 23 remain negative Assessment/Plan Impression: Stable status post exploratory laparotomy 4 days ago for what was felt to be a sealed perforation of sigmoid diverticulosis, resulting in free air that was seen on the CT scan of the abdomen and pelvis. He remains afebrile (on steroids ) with white blood cell count normal on Ceftriaxone and Flagyl. Suggestion: 1. Would discontinue Ceftriaxone and Flagyl in the a.m. (June 28) and then follow off antibiotics
[2016-06-27 11:45] LABS: ABSOLUTE BASOPHIL COUNT 0 /CUMM (0.0-0.2); ABSOLUTE EOSINOPHIL COUNT 0 /CUMM (0.0-0.7); ABSOLUTE GRANULOCYTE CT 5.9 /CUMM (1.4-6.5); ABSOLUTE LYMPH COUNT 0.5 /CUMM (1.2-3.4); ABSOLUTE MONOCYTE COUNT 0.6 /CUMM (0.10-0.60); BASOPHIL % 0.1 % (0.0-2.0); EOSINOPHIL % 0.4 % (0-5); HEMATOCRIT 35.3 % (42-52); MEAN CORPUSCULAR HGB 30.2 PG (27.0-31.0); MEAN CORPUSCULAR HGB CONC 32.9 G/DL (33.0-37.0); MEAN CORPUSCULAR VOLUME 91.7 FL (80.0-94.0); MEAN PLATELET VOLUME 8.9 FL (7.4-10.4); PLATELET COUNT 162 /CUMM (130-400); RBC DISTRIBUTION WIDTH 16.6 % (11.5-14.5); RED BLOOD CELL CT 3.85 /CUMM (4.70-6.10); WHITE BLOOD CELL COUNT 7.1 /CUMM (4.8-10.8)
--- NOTE | 2016-06-27 12:13 | ECHOCARDIOGRAM REPORT ---
DONG MACIAS Age: 76 : 1940 Gender: M Exam Date: 06/26/2016 18:50 Exam Location: [address] Ht (in): 67 Wt (lb): 151 BSA: 1.81 BP: 150 / 78 Ordering Physician: BETTIE PORTILLO MD Referring Physician: Moi Villanueva MD Technologist: Noemi Talbot [facility] Room Number: 185-01 Indications: HYPERTENSION, BRADYCARDIA Rhythm: Sinus Technical Quality: Fair FINDINGS Left Ventricle Normal size left ventricle. Mild concentric left ventricular hypertrophy. No obvious regional wall motion abnormalities. Normal left ventricular ejection fraction visually estimated at >65%. "pseudonormal" filling pattern of the left ventricle for age (stage 2 diastolic dysfunction). Right Ventricle Normal right ventricular size and function. Right Atrium Normal right atrial size. Left Atrium Normal left atrial size. Mitral Valve Structurally normal mitral valve. No mitral regurgitation. Aortic Valve Trileaflet aortic valve. Mild aortic sclerosis. No aortic valve stenosis or regurgitation. Tricuspid Valve Structurally normal tricuspid valve. Trace tricuspid regurgitation. No evidence of pulmonary hypertension. Right ventricular systolic pressure estimated to be within the normal range at 27 mmHg. Pulmonic Valve Pulmonic valve not well visualized, grossly normal. Mild pulmonic regurgitation. Pericardium No pericardial effusion. Great Vessels Normal size aortic root. Mildly to moderately dilated ascending aorta. CONCLUSIONS Normal size left ventricle. Mild concentric left ventricular hypertrophy. Normal left ventricular ejection fraction visually estimated at > 65%. "pseudonormal" filling pattern of the left ventricle for age (stage 2 diastolic dysfunction). Normal right ventricular size and function. Normal atrial size. Trace tricuspid regurgitation. No evidence of pulmonary hypertension. Mild pulmonic regurgitation. Mildly to moderately dilated ascending aorta. Moi Villanueva M.D. (Electronically Signed) Final Date: 27 June 2016 12:12 MEASUREMENTS (Male / Female) Normal Values 2D ECHO LV Diastolic Diameter PLAX 4.2 cm 4.2 - 5.9 / 3.9 - 5.3 cm LV Systolic Diameter PLAX 2.0 cm 2.1 - 4.0 cm LV Fractional Shortening PLAX 52.4 % 25 - 46 % LV Ejection Fraction 2D Teich 83.8 % IVS Diastolic Thickness 1.1 cm LVPW Diastolic Thickness 1.2 cm LV Relative Wall Thickness 0.5 RV Internal Dim ED PLAX 2.9 cm 1.9 - 3.8 cm LVOT Diameter 2.2 cm Aortic Root Diameter 3.4 cm LA Systolic Diameter LX 3.3 cm 3.0 - 4.0 / 2.7 - 3.8 cm LA Volume 41.0 cm 18 - 58 / 22 - 52 cm Ascending Aorta Diameter 4.1 cm DOPPLER AV Peak Velocity 134.0 cm/s AV Peak Gradient 7.2 mmHg AV Mean Velocity 94.5 cm/s AV Mean Gradient 4.0 mmHg AV Velocity Time Integral 33.4 cm LVOT Peak Velocity 99.3 cm/s LVOT Peak Gradient 3.9 mmHg LVOT Mean Velocity 63.3 cm/s LVOT Mean Gradient 2.0 mmHg LVOT Velocity Time Integral 24.6 cm LVOT Stroke Volume 93.5 cm AV Area Cont Eq vti 2.8 cm AV Area Cont Eq pk 2.8 cm MV Peak Velocity 81.3 cm/s MV Peak Gradient 2.6 mmHg MV Mean Velocity 42.1 cm/s MV Mean Gradient 1.0 mmHg Mitral E Point Velocity 87.9 cm/s Mitral A Point Velocity 76.0 cm/s Mitral E to A Ratio 1.2 MV PHT Velocity 80.8 cm/s MV Deceleration [place] 323.0 cm/s MV Pressure Half Time 75.0 ms MV Area PHT 2.9 cm MV Deceleration Time 259.0 ms TR Peak Velocity 234.0 cm/s TR Peak Gradient 21.9 mmHg Right Atrial Pressure 5.0 mmHg Pulmonary Artery Systolic Pressu 26.9 mmHg Right Ventricular Systolic Press 26.9 mmHg PV Peak Velocity 85.8 cm/s PV Peak Gradient 2.9 mmHg PV Mean Velocity 62.3 cm/s PV Mean Gradient 2.0 mmHg PV Velocity Time Integral 19.8 cm LV E' Lateral Velocity 7.9 cm/s Mitral E to LV E' Lateral Ratio 11.1 LV E' Septal Velocity 9.8 cm/s Mitral E to LV E' Septal Ratio 9.0
[2016-06-27 16:27] VITALS: BP 121/71
--- NOTE | 2016-06-27 19:26 | PN- Cardiology ---
Subjective Subjective: No complaints. Mildly bradycardic up until approximately 10:00 a.m. today when he heart rate ranged between 60-70 minutes. Objective Vital Signs and I&Os Vital Signs Date Time Temp Pulse Resp B/P Pulse O2 O2 Flow FiO2 Ox Delivery Rate 06/27 1627 98.0 67 18 121/71 97 Room Air 06/27 0836 97.6 51 16 138/64 95 Room Air 06/26 2332 98.0 61 18 130/80 97 Room Air Intake & Output 06/27 1600 06/27 0800 06/27 0000 06/26 1600 06/26 0800 06/26 0000 Intake Total 319 055 7703.0 877 914.6 1010.1 Output Total 645 220 570 351 430 660 Balance -165 -100 812.0 526 484.6 350.1 Intake, IV 600 867 120 130 Intake, Lipid 117.0 104.7 158.0 Intake, Oral 480 120 0 0 0 0 Intake, Other 10 90 150 Intake, 665 599.9 572.1 TPN/PPN Number 1 1 0 Bowel Movements Output, 20 20 20 0 5 15 Drainage Output, 50 75 20 Gastric Drainage Output, Stool 1 Output, Urine 625 200 550 300 350 625 Physical Exam: Elderly male in no acute distress. Vital signs: See above. Lungs: Clear to auscultation. Heart: S1, S2. Extremities: No edema. Current Medications: Current Medications Sig/Lisa Start time Last Medication Dose Route Stop Time Status Admin Acetaminophen 1,000 MG Q6P PRN 06/23 0600 AC 06/24 N/A 1 UNIT IV 0548 Atorvastatin Calcium 40 MG [id number] 06/23 1700 AC 06/27 PO 1805 Bisacodyl 10 MG DAILY 06/26 1113 AC 06/26 IN 1443 Ceftriaxone Sodium 1,000 MG 2200 06/23 2200 AC 06/26 IV 2038 Dexamethasone 4 MG DAILY 06/28 1000 AC PO Dexamethasone 4 MG ONCE ONE 06/27 1100 DC 06/27 PO 06/27 1101 1343 Dexamethasone 4 MG DAILY 06/24 1000 DC 06/26 Dextrose/Water 50 ML IV 1028 Diclofenac Sodium 1 ADDY 4 TIMES/DAY 06/25 1826 AC 06/27 TOP 1807 Fat Emulsion 350 ML Q24H 06/27 1900 AC Intravenous IV 06/28 1859 Fat Emulsion 350 ML Q24H 06/26 1900 DC 06/26 Intravenous IV 06/27 1859 1930 Fentanyl Citrate 25 MCG Q72H 06/23 1415 06/26 TOP 1450 Gabapentin 100 MG Q8 06/23 1413 AC 06/27 PO 1343 Heparin Sodium 5,000 UNIT Q8 06/23 0600 AC 06/27 (Porcine) SC 1343 Hydromorphone HCl 1 MG Q4P PRN 06/25 1015 06/27 IV 0615 Insulin Human Regular 0 TIDAC/HS 06/27 1200 AC 06/27 SC 1229 Insulin Human Regular 0 Q6 06/23 1800 DC 06/27 SC 0619 Ketorolac 15 MG .STK-MED ONE 06/27 0932 DC Tromethamine IM 06/27 0933 Ketorolac 15 MG Q8P PRN 06/25 1215 AC 06/27 Tromethamine IV 0938 Magnesium Hydroxide 30 ML BID 06/25 1845 AC 06/27 PO 1032 Metronidazole 500 MG Q8H 06/23 1000 06/27 N/A 1 UNIT IV 1812 Morphine Sulfate 10 MG Q6P PRN 06/27 1115 AC 06/27 PO 1343 Morphine Sulfate 5 MG Q6P PRN 06/27 1045 PO Ondansetron HCl 4 MG Q6P PRN 06/25 1200 AC 06/25 IV 1923 Pantoprazole Sodium 40 MG DAILY 06/23 1043 AC 06/27 IV 1031 Sodium Chloride 1,000 ML Q20H 06/26 1630 DC 06/26 IV 1630 Total Parenteral 1 UNIT 1900 06/27 1900 AC Nutrition IV 06/28 1859 Total Parenteral 1 UNIT 06/26 1900 DC 06/26 Nutrition IV 06/27 1859 1930 Results Last 48 Hrs of Labs/Mics: Laboratory Tests 06/27/16 1051: Anion Gap 5, Estimated GFR > 60, BUN/Creatinine Ratio 44.0 H, Calcium 8.3 L, Phosphorus 3.2, Magnesium 2.0, CBC w Diff NO MAN DIFF REQ, RBC 3.85 L, MCV 91.7 , MCH 30.2, RDW 16.6 H, MPV 8.9, Gran % 83.0 H, Lymphocytes % 7.5 L, Monocytes % 9.0, Eosinophils % 0.4, Basophils % 0.1, Absolute Granulocytes 5.9, Absolute Lymphocytes 0.5 L, Absolute Monocytes 0.6, Absolute Eosinophils 0, Absolute Basophils 0, PUBS MCHC 32.9 L 06/27/16 0500: Sodium Cancelled, Potassium Cancelled, Chloride Cancelled, Carbon Dioxide Cancelled, Anion Gap Cancelled, BUN Cancelled, Creatinine Cancelled, Glucose Cancelled, Calcium Cancelled, Phosphorus Cancelled, Magnesium Cancelled, Total Bilirubin Cancelled, AST Cancelled, ALT Cancelled, Albumin Cancelled, CBC w Diff Cancelled, WBC Cancelled, RBC Cancelled, Hgb Cancelled, Hct Cancelled, MCV Cancelled, MCH Cancelled, RDW Cancelled, Plt Count Cancelled, MPV Cancelled, PUBS MCHC Cancelled 06/26/16 0437: Anion Gap 6, Estimated GFR > 60, Glucose 109 H, Calcium 8.1 L, Phosphorus 3.2, Magnesium 2.1, Total Bilirubin 0.4, AST 15 L, ALT 34, Albumin 2.3 L, TSH 0.913 , Free T4 1.07, CBC w Diff NO MAN DIFF REQ, RBC 3.66 L, MCV 90.3, MCH 30.2, RDW 16.5 H, MPV 9.1, Gran % 89.3 H, Lymphocytes % 5.7 L, Monocytes % 3.6, Eosinophils % 0.1, Basophils % 1.3, Absolute Granulocytes 7.9 H, Absolute Lymphocytes 0.5 L, Absolute Monocytes 0.3, Absolute Eosinophils 0, Absolute Basophils 0.1, PUBS MCHC 33.4 Recent Imaging Studies: Echocardiogram (06/26/2016) Normal size left ventricle. Mild concentric left ventricular hypertrophy. Normal left ventricular ejection fraction visually estimated at >65%. "pseudonormal" filling pattern of the left ventricle for age (stage 2 diastolic dysfunction). Normal right ventricular size and function. Normal atrial size. Trace tricuspid regurgitation. No evidence of pulmonary hypertension. Mild pulmonic regurgitation. Mildly to moderately dilated ascending aorta. Assessment/Plan Assessment/Plan Continues to slowly improve and his postoperative day #4 s/p exploratory laparotomy, washout and drain placement for perforated diverticulosis. Heart rate has improved. The results of his echocardiogram are reassuring. If heart rate remains adequate overnight and he has an appropriate chronotropic response to ambulation with consider discontinuing telemetry tomorrow. Continue telemetry? Not applicable
--- NOTE | 2016-06-27 19:28 | Patient Discharge Instructions ---
Discharge Instructions General Discharge Information You were seen/treated for: perforated diverticulitis You had these procedures: exploratory laparotomy, abdominal washout Watch for these problems: fever >101, redness or drainage from incision site, difficulty breathing or chest pain Call Surgeon to remove: Jesús (2 weeks postop) Do not soak the wound: Yes Daily wet to dry dressings: No No bath, but you may shower: Yes Other wound care: You may shower as desired. Keep wound clean and dry otherwise. You may apply a dry dressing daily if desired. Special Instructions: follow up with your PCP in 1 week Diet Continue normal diet: Yes Recommended Diet: Low Residue Activity Full Activity/No Limits: No Activity Self Limited: Yes Pounds, do NOT lift more than: 5 Other activity limits: No strenuous activity or heavy lifting, pushing, pulling. Acute Coronary Syndrome Inclusion Criteria At DC or during hospital stay patient has or had the following: ACS DIAGNOSIS No Discharge Core Measures Meds if any: Prescribed or Continued at Discharge Meds if any: NOT Prescribed or Continued at Discharge Congestive Heart Failure Inclusion Criteria At DC or during hospital stay patient has or had the following: CHF DIAGNOSIS No Discharge Core Measures Meds if any: Prescribed or Continued at Discharge Meds if any: NOT Prescribed or Continued at Discharge Cerebrovascular accident Inclusion Criteria At DC or during hospital stay patient has or had the following: CVA/TIA Diagnosis No Discharge Core Measures Meds if any: Prescribed or Continued at Discharge Meds if any: NOT Prescribed or Continued at Discharge Venous thromboembolism Inclusion Criteria VTE Diagnosis No VTE Type NONE VTE Confirmed by (Test) NONE Discharge Core Measures - Per Current guidelines, there needs to be overlap - treatment for the first 5 days of Warfarin therapy. - If discharged on Warfarin prior to 5 days of - overlap therapy, the patient will need to be - assessed for post discharge needs including - *Post discharge parental anticoagulation - *Warfarin and/or parental anticoagulation education - *Follow up date to check INR post discharge At least 5 days overlap therapy as Inpatient No Meds if any: Prescribed or Continued at Discharge Note: Overlap Therapy is Warfarin and Anticoagulant Meds if any: NOT Prescribed or Continued at Discharge
[2016-06-27 22:58] VITALS: BP 110/80
[2016-06-28 07:51] VITALS: BP 120/88
--- NOTE | 2016-06-28 09:49 | PN- General Surgery ---
Subjective Subjective: NAEO. Patient states he has increased pain at the moment. Otherwise no new c/ o. Tolerating diet without n/v. +flatus, +BM. Denies CP/SOB. Objective Vital Signs and I&Os Vital Signs Date Time Temp Pulse Resp B/P Pulse O2 O2 Flow FiO2 Ox Delivery Rate 06/28 0751 97.6 53 16 120/88 97 Room Air 06/27 2258 98.1 56 18 110/80 97 Room Air 06/27 1627 98.0 67 18 121/71 97 Room Air Intake & Output 06/28 1600 06/28 0800 06/28 0000 06/27 1600 06/27 0800 06/27 0000 Intake Total 541.2 1118.3 518 876 8994.0 Output Total 310 315 645 220 570 Balance 231.2 803.3 -165 -100 812.0 Intake, IV 100 100 600 Intake, Lipid 58.4 80.3 117.0 Intake, Oral 50 480 480 120 0 Intake, 332.8 458 665 TPN/PPN Number 4 1 1 1 Bowel Movements Output, 10 15 20 20 20 Drainage Output, Urine 300 300 625 200 550 Physical Exam: General: NAD, comfortable, A&Ox3 Chest: Decreased BS in BLL. Heart S1S2 normal. Abdomen: soft, nondistended. Appropriately TTP. Incision intact without surrounding erythema, swelling, or signs of infection. ZULEIMA x2 with serous drainage. Ext: No calve swelling/TTP, neurovascularly intact bilateral lower extremities Current Medications: Current Medications Sig/Lisa Start time Last Medication Dose Route Stop Time Status Admin Acetaminophen 1,000 MG Q6P PRN 06/23 0600 AC 06/24 N/A 1 UNIT IV 0548 Atorvastatin Calcium 40 MG [id number]@1700 06/23 1700 AC 06/27 PO 1805 Bisacodyl 10 MG DAILY 06/26 1113 AC 06/26 [place] 1443 Ceftriaxone Sodium 1,000 MG 0 06/23 2200 AC 06/27 IV 2129 Dexamethasone 4 MG DAILY 06/28 1000 AC PO Dexamethasone 4 MG ONCE ONE 06/27 1100 DC 06/27 PO 06/27 1101 1343 Dexamethasone 4 MG DAILY 06/24 1000 DC 06/26 Dextrose/Water 50 ML IV 1028 Diclofenac Sodium 1 ADDY 4 TIMES/DAY 06/25 1826 AC 06/27 TOP 2129 Fat Emulsion 350 ML Q24H 06/27 1900 AC 06/27 Intravenous IV 06/28 Fat Emulsion 350 ML Q24H 06/26 1900 DC 06/26 Intravenous IV 06/27 185 193 Fentanyl Citrate 25 MCG Q72H 06/23 1415 06/26 TOP 1450 Gabapentin 100 MG Q8 06/23 1413 06/28 PO 0556 Heparin Sodium 5,000 UNIT Q8 06/23 0600 06/28 (Porcine) SC 0556 Hydromorphone HCl 1 MG Q4P PRN 06/25 1015 AC 06/27 IV 0615 Insulin Human Regular 0 TIDAC/HS 06/27 1200 AC 06/27 SC 1229 Insulin Human Regular 0 Q6 06/23 1800 DC 06/27 SC 0619 Ketorolac 15 MG Q8P PRN 06/25 1215 AC 06/27 Tromethamine IV 0938 Magnesium Hydroxide 30 ML BID 06/25 1845 AC 06/27 PO 2129 Metronidazole 500 MG Q8H 06/23 1000 06/28 N/A 1 UNIT IV 0127 Morphine Sulfate 10 MG Q6P PRN 06/27 1115 06/28 PO 0443 Morphine Sulfate 5 MG Q6P PRN 06/27 1045 AC PO Ondansetron HCl 4 MG Q6P PRN 06/25 1200 AC 06/25 IV 1923 Pantoprazole Sodium 40 MG DAILY 06/23 1043 AC 06/27 IV 1031 Total Parenteral 1 UNIT 1900 06/27 1900 AC 06/27 Nutrition IV 06/28 Total Parenteral 1 UNIT 06/26 190 MN 06/26 Nutrition IV 06/27 [id number] Results Last 48 Hours of Labs: Laboratory Tests 06/28 06/27 06/27 0720 1051 0500 Chemistry Sodium (137 - 145 mmol/L) 139 139 Cancelled Potassium (3.5 - 5.1 mmol/L) 4.1 4.7 Cancelled Chloride (98 - 107 mmol/L) 101 103 Cancelled Carbon Dioxide (22 - 30 mmol/L) 32 H 31 H Cancelled Anion Gap (5 - 16) 5 5 Cancelled BUN (9 - 20 mg/dL) 20 22 H Cancelled Creatinine (0.7 - 1.2 mg/dL) 0.5 L 0.5 L Cancelled Estimated GFR (>60 ml/min) > 60 > 60 BUN/Creatinine Ratio (7 - 25 %) 40.0 H 44.0 H Glucose Cancelled Calcium (8.4 - 10.2 mg/dL) 8.2 L 8.3 L Cancelled Phosphorus (2.5 - 4.5 mg/dL) 3.6 3.2 Cancelled Magnesium (1.6 - 2.3 mg/dL) 2.0 2.0 Cancelled Total Bilirubin Cancelled AST Cancelled ALT Cancelled Albumin Cancelled Hematology CBC w Diff NO MAN DIFF REQ Cancelled WBC (4.8 - 10.8 /CUMM) 7.1 Cancelled RBC (4.70 - 6.10 /CUMM) 3.85 L Cancelled Hgb (14.0 - 18.0 G/DL) 11.6 L Cancelled Hct (42 - 52 %) 35.3 L Cancelled MCV (80.0 - 94.0 FL) 91.7 Cancelled MCH (27.0 - 31.0 PG) 30.2 Cancelled RDW (11.5 - 14.5 %) 16.6 H Cancelled Plt Count (130 - 400 /CUMM) 162 Cancelled MPV (7.4 - 10.4 FL) 8.9 Cancelled Gran % (42.2 - 75.2 %) 83.0 H Lymphocytes % (20.5 - 51.1 %) 7.5 L Monocytes % (1.7 - 9.3 %) 9.0 Eosinophils % (0 - 5 %) 0.4 Basophils % (0.0 - 2.0 %) 0.1 Absolute Granulocytes (1.4 - 6.5 /CUMM) 5.9 Absolute Lymphocytes (1.2 - 3.4 /CUMM) 0.5 L Absolute Monocytes (0.10 - 0.60 /CUMM) 0.6 Absolute Eosinophils (0.0 - 0.7 /CUMM) 0 Absolute Basophils (0.0 - 0.2 /CUMM) 0 PUBS MCHC (33.0 - 37.0 G/DL) 32.9 L Cancelled Assessment/Plan Assessment/Plan 73yo M s/p exploratory laparotomy for perforated viscus postoperative. AVSS. Patient progressing from surgery standpoint. - Pain control - PRN zofran - f/u labs - Wean TPN - Low residue diet - JPs to self suction - Continue IV antibiotics per ID recs - TRC - OOB and ambulate - GI and DVT prophylaxis - f/u cards, medicine - Will d/w attending Core Measures/Miscellaneous Venous Thromboembolism VTE Risk Factors: Age > 40, Cancer/chemo/oth therapy, Surgery VTE Contraindications: No Contraindications VTE Prophylaxis Ordered Inpt Mech & Pharm VTE Diagnosis: No Beta Angela Is Beta Angela a Home Med? No Antibiotics Is Patient on Antibiotics? Yes If Yes: infection
--- NOTE | 2016-06-28 14:33 | PN- Att Addend ---
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 Medical/cardiology team has been on board for medical issues/ bradycardia. Patient was seen and examined on the bedside, no active issues and has been tolerating the diet. Patient heart rate remains stable, with no gross pathology in the echocardiogram. Patient IV antibiotics have been stopped this morning as per ID recommendations. The rest of the management as per primary surgical team
[2016-06-28 15:43] VITALS: BP 126/62
[2016-06-28 22:00] VITALS: BP 130/70
--- NOTE | 2016-06-29 07:18 | PN- General Surgery ---
Subjective Subjective: No acute events overnight. Pain well controlled. Tolerating diet, voiding spontaneously, having bowel movements. No other complaints. Denies nausea, vomiting. Anticipates discharge home today. Objective Vital Signs and I&Os Vital Signs Date Time Temp Pulse Resp B/P Pulse O2 O2 Flow FiO2 Ox Delivery Rate 06/28 2200 97.6 72 20 130/70 98 Room Air 06/28 1543 97.8 60 16 126/62 96 Room Air 06/28 0751 97.6 53 16 120/88 97 Room Air Intake & Output 06/29 0800 06/29 0000 06/28 1600 06/28 0800 06/28 0000 06/27 1600 Intake Total 100 100 541.2 1118.3 480 Output Total 400 300 300 310 315 645 Balance -300 -200 -300 231.2 803.3 -165 Intake, IV 100 100 Intake, Lipid 58.4 80.3 Intake, Oral 100 100 50 480 480 Intake, 332.8 458 TPN/PPN Number 1 4 1 1 Bowel Movements Output, 10 15 20 Drainage Output, Urine 400 300 300 300 300 625 Physical Exam: General: NAD, comfortable, A&Ox3 Chest: Normal work of breathing, regular rate and rhythm. Abdomen: soft, nondistended. Appropriately TTP. Incision intact without surrounding erythema, swelling, or signs of infection. Active bowel sounds present. ZULEIMA x1 with minimal serous drainage. Ext: No calf tenderness. Moves all extremities well. Results Last 48 Hours of Labs: Laboratory Tests 06/29 06/28 0637 0720 Chemistry Sodium (137 - 145 mmol/L) 139 Potassium (3.5 - 5.1 mmol/L) 4.1 Chloride (98 - 107 mmol/L) 101 Carbon Dioxide (22 - 30 mmol/L) 32 H Anion Gap (5 - 16) 5 BUN (9 - 20 mg/dL) 20 Creatinine (0.7 - 1.2 mg/dL) 0.5 L Estimated GFR (>60 ml/min) > 60 BUN/Creatinine Ratio (7 - 25 %) 40.0 H Calcium (8.4 - 10.2 mg/dL) 8.2 L Phosphorus (2.5 - 4.5 mg/dL) 3.6 Magnesium (1.6 - 2.3 mg/dL) 2.0 Hematology CBC w Diff NO MAN DIFF REQ WBC (4.8 - 10.8 /CUMM) 5.8 RBC (4.70 - 6.10 /CUMM) 3.82 L Hgb (14.0 - 18.0 G/DL) 11.6 L Hct (42 - 52 %) 34.6 L MCV (80.0 - 94.0 FL) 90.5 MCH (27.0 - 31.0 PG) 30.3 RDW (11.5 - 14.5 %) 16.3 H Plt Count (130 - 400 /CUMM) 168 MPV (7.4 - 10.4 FL) 8.9 Gran % (42.2 - 75.2 %) 79.4 H Lymphocytes % (20.5 - 51.1 %) 8.3 L Monocytes % (1.7 - 9.3 %) 11.8 H Eosinophils % (0 - 5 %) 0.4 Basophils % (0.0 - 2.0 %) 0.1 Absolute Granulocytes (1.4 - 6.5 /CUMM) 4.6 Absolute Lymphocytes (1.2 - 3.4 /CUMM) 0.5 L Absolute Monocytes (0.10 - 0.60 /CUMM) 0.7 H Absolute Eosinophils (0.0 - 0.7 /CUMM) 0 Absolute Basophils (0.0 - 0.2 /CUMM) 0 PUBS MCHC (33.0 - 37.0 G/DL) 33.5 06/27 1051 Chemistry Sodium (137 - 145 mmol/L) 139 Potassium (3.5 - 5.1 mmol/L) 4.7 Chloride (98 - 107 mmol/L) 103 Carbon Dioxide (22 - 30 mmol/L) 31 H Anion Gap (5 - 16) 5 BUN (9 - 20 mg/dL) 22 H Creatinine (0.7 - 1.2 mg/dL) 0.5 L Estimated GFR (>60 ml/min) > 60 BUN/Creatinine Ratio (7 - 25 %) 44.0 H Calcium (8.4 - 10.2 mg/dL) 8.3 L Phosphorus (2.5 - 4.5 mg/dL) 3.2 Magnesium (1.6 - 2.3 mg/dL) 2.0 Hematology CBC w Diff NO MAN DIFF REQ WBC (4.8 - 10.8 /CUMM) 7.1 RBC (4.70 - 6.10 /CUMM) 3.85 L Hgb (14.0 - 18.0 G/DL) 11.6 L Hct (42 - 52 %) 35.3 L MCV (80.0 - 94.0 FL) 91.7 MCH (27.0 - 31.0 PG) 30.2 RDW (11.5 - 14.5 %) 16.6 H Plt Count (130 - 400 /CUMM) 162 MPV (7.4 - 10.4 FL) 8.9 Gran % (42.2 - 75.2 %) 83.0 H Lymphocytes % (20.5 - 51.1 %) 7.5 L Monocytes % (1.7 - 9.3 %) 9.0 Eosinophils % (0 - 5 %) 0.4 Basophils % (0.0 - 2.0 %) 0.1 Absolute Granulocytes (1.4 - 6.5 /CUMM) 5.9 Absolute Lymphocytes (1.2 - 3.4 /CUMM) 0.5 L Absolute Monocytes (0.10 - 0.60 /CUMM) 0.6 Absolute Eosinophils (0.0 - 0.7 /CUMM) 0 Absolute Basophils (0.0 - 0.2 /CUMM) 0 PUBS MCHC (33.0 - 37.0 G/DL) 32.9 L Assessment/Plan Assessment/Plan This is a 73 year old male s/p exploratory laparotomy for perforated diverticulitis on 06/23/2016, postoperative day 6. TPN weaned to off, tolerating diet currently. Last dose of antibiotics yesterday morning, afebrile. - Pain control - continue low fiber diet - GI prophylaxis: IV protonix - DVT prophylaxis: SQH - CBC reviewed - ZULEIMA to self suction, discontinue today (minimal serous output) - Antibiotics discontinue per ID recommendations, no antibiotics for discharge - OOB and ambulate - Discussed with medical team, no further recommendations and cleared to discharge from their standpoint. - Dispo: discharge home today after lunch Core Measures/Miscellaneous Venous Thromboembolism VTE Risk Factors: Age > 40, Cancer/chemo/oth therapy, Surgery VTE Contraindications: No Contraindications VTE Prophylaxis Ordered Inpt Mech & Pharm VTE Diagnosis: No Beta Angela Is Beta Angela a Home Med? No Antibiotics Is Patient on Antibiotics? Yes If Yes: infection
[2016-06-29 07:41] VITALS: BP 140/88
[2016-06-29 08:14] LABS: ABSOLUTE BASOPHIL COUNT 0 /CUMM (0.0-0.2); ABSOLUTE EOSINOPHIL COUNT 0 /CUMM (0.0-0.7); ABSOLUTE GRANULOCYTE CT 4.6 /CUMM (1.4-6.5); ABSOLUTE LYMPH COUNT 0.5 /CUMM (1.2-3.4); ABSOLUTE MONOCYTE COUNT 0.7 /CUMM (0.10-0.60); BASOPHIL % 0.1 % (0.0-2.0); EOSINOPHIL % 0.4 % (0-5); GRANULOCYTE % 79.4 % (42.2-75.2); HEMATOCRIT 34.6 % (42-52); MEAN CORPUSCULAR HGB 30.3 PG (27.0-31.0); MEAN CORPUSCULAR HGB CONC 33.5 G/DL (33.0-37.0); MEAN CORPUSCULAR VOLUME 90.5 FL (80.0-94.0); MEAN PLATELET VOLUME 8.9 FL (7.4-10.4); PLATELET COUNT 168 /CUMM (130-400); RBC DISTRIBUTION WIDTH 16.3 % (11.5-14.5); RED BLOOD CELL CT 3.82 /CUMM (4.70-6.10); WHITE BLOOD CELL COUNT 5.8 /CUMM (4.8-10.8)
--- NOTE | 2016-06-29 11:34 | Surgical Discharge Summary ---
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 Patient states that 3 hours prior to arrival he had acute onset of right lower quadrant and inguinal pain with swollen mass noted. Patient denies any excessive physical activity. Last bowel movement was yesterday no blood no melena noted. 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 Home Who Do You Live With? Spouse What is Your Primary Language? Serbian Review of Systems: Refer to H&P Hospital Course Course Attending Physician: TONIE HEIN DO Primary Care Physician: PRINCE GU,AMBER [facility] Hospital Course: Patient presented to [facility] emergency department was for acute onset of rightlower quadrant abdominal pain, CT scan findings consistent free area and upper abdomen. He went to the operating room on 06/23/2016 and underwent emergent exploratory laparotomy, washout for perforated diverticula. The patient tolerated the procedure well, without complications. Medicine service was consulted for medical comanagement. Cardiology consultation was placed for ppostoperative bradycardia. He remained on telemetry, EKG was evaluated, an echocardiogram demonstrated normal size left ventricle with ejection fraction of greater than 65%. No cardiac follow-up recommended. Infectious disease consultation was placed given concerns of peritonitis, ciprofloxacin and Flagyl discontinued after appropriate duration, and patient was followed off antibiotics and remained afebrile. 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 Recommendations were reviewed and followed. The postoperative course remained uneventful. Pain was well controlled with oral pain medication, and voiding without difficulty. Diet was advanced as bowel function returned and he tolerated it well. He was having regular bowel movements prior to discharge. 2 ZULEIMA drains were removed during admission without incident. The patient was evaluated was deemed stable from a medical standpoint, and was discharged. Allergies: Coded Allergies: Penicillins (Severe, ANAPHYLAXIS 12/12/15) amoxicillin (Severe, ANAPHYLAXIS 12/12/15) carbamazepine (From TEGRETOL) (Severe, ANAPHYLAXIS 12/12/15) clindamycin (Intermediate, HIVES 12/12/15) Significant Procedures: Exploratory laparotomy, abdominal washout, placement of drains Pertinent Lab Results: CBC HEMOGRAM | | | CBC HEMOGRAM P | | | > WBC | 5.8 | | 4.8-10.8 /CUMM > RBC | 3.82 | L | 4.70-6.10 /CUMM > HGB | 11.6 | L | 14.0-18.0 G/DL > HCT | 34.6 | L | 42-52 % > MCV | 90.5 | | 80.0-94.0 FL > MCH | 30.3 | | 27.0-31.0 PG > MCHC | 33.5 | | 33.0-37.0 G/DL > RDW | 16.3 | H | 11.5-14.5 % > PLT CT | 168 | | 130-400 /CUMM > MPV | 8.9 | | 7.4-10.4 FL > LYM % | 8.3 | L | 20.5-51.1 % > MONO % | 11.8 | H | 1.7-9.3 % > GRAN % | 79.4 | H | 42.2-75.2 % > EOS % | 0.4 | | 0-5 % > BASO % | 0.1 | | 0.0-2.0 % > LYM ABS | 0.5 | L | 1.2-3.4 /CUMM > MONO ABS | 0.7 | H | 0.10-0.60 /CUMM > GRAN ABS | 4.6 | | 1.4-6.5 /CUMM > EOS ABS | 0 | | 0.0-0.7 /CUMM > BASO ABS | 0 | | 0.0-0.2 /CUMM > RFLX DIFF&MORPH | NO MAN DIFF REQ | | Disposition Summary Disposition Principal Diagnosis: Peritonitis Additional Diagnosis: Asymptomatic bradycardia Discharge Disposition: home or self care Discharge Instructions General Discharge Information Code Status: Full Code Patient's Diet: Low fiber diet Patient's Activity: Activity as tolerated Follow-Up Instructions/Appts: Keep incision clean and dry at all times, may apply dry gauze dressing with tape daily as needed. May shower, no soaking. Follow with Dr. Hein in 1 week, please call to schedule your follow-up appointment. Follow-up with your outpatient oncologist as directed. Medications at Discharge Discharge Medications: Continue taking these medications: Rosuvastatin Calcium (Crestor) 20 MG TABLET 0.5 Tablet ORAL Every other day Qty = 90 Comments: PER PT Morphine Sulfate (Morphine Sulfate Elixir 10mg/5ml) 10 MG/5 ML SOLUTION 2.5-5 Milliliters ORAL as needed for PAIN Qty = 240 Comments: PER PT Lactose-Reduced Food (Boost High Protein) (Unknown Strength) LIQUID Unknown Dose ORAL DAILY Comments: PER PT Gabapentin (Gabapentin) 100 MG CAPSULE 1 Capsule ORAL THREE TIMES DAILY Dexamethasone (Dexamethasone) 4 MG TABLET 1 Tablet ORAL DAILY Furosemide (Lasix) 40 MG TABLET 1 Tablet ORAL DAILY Fentanyl (Fentanyl) 25 MCG/HOUR PATCH.TD72 1 Patch On the skin Every 3 days Copies To: TONIE HEIN DO"
--- NOTE | 2016-06-29 13:09 | PN- Att Addend ---
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 Medical/cardiology team has been on board for medical issues/ bradycardia. Patient was seen and examined on the bedside, no active issues and has been tolerating the diet. Patient heart rate remains stable, with no gross pathology in the echocardiogram. Pt is being discharged by the primary team. Pt should follow up with his appointments with PCP and other specialists on discharge.
== END 2016-06-29 15:15 | DRG 356 ==
LOC: ERH 22:30 → ENPENDDIS 06-23 06:00 → CRI 06-23 06:00 → 1NO 06-26 17:45
PROVIDERS: Emergency Medicine; Physician Assistant; Physician Assistant Surgical; ADMIT Surgery
PROC: 3E1M38Z Irrigation of Peritoneal Cavity using Irrigating Substance, Percutaneous Approach (ICD-10-PCS; principal; 2016-06-23)
PROC: 0WJG0ZZ Inspection of Peritoneal Cavity, Open Approach (ICD-10-PCS; principal; 2016-06-23)
PROC: 0BH17EZ Insertion of Endotracheal Airway into Trachea, Via Natural or Artificial Opening (ICD-10-PCS; 2016-06-23)
PROC: 5A1945Z Respiratory Ventilation, 24-96 Consecutive Hours (ICD-10-PCS; 2016-06-23)
DX: K57.20 Diverticulitis of large intestine with perforation and abscess without bleeding (principal); J96.00 Acute respiratory failure, unspecified whether with hypoxia or hypercapnia; C79.31 Secondary malignant neoplasm of brain; E46 Unspecified protein-calorie malnutrition; C78.00 Secondary malignant neoplasm of unspecified lung; C76.0 Malignant neoplasm of head, face and neck; Z68.23 Body mass index [BMI] 23.0-23.9, adult; I10 Essential (primary) hypertension; E78.5 Hyperlipidemia, unspecified; Z87.891 Personal history of nicotine dependence; K40.90 Unilateral inguinal hernia, without obstruction or gangrene, not specified as recurrent; N40.0 Benign prostatic hyperplasia without lower urinary tract symptoms; R00.1 Bradycardia, unspecified
CPT/HCPCS: 1NSP; CCU; 36415; 74177; 82436; 87040; 87086; 93005; 93010; 93306; 96374; 96375; 96376; 97110-GO; 97116-GO; 97162-GP; 97530-GO; J0131; J0690; J0696; J1100; J1170; J1644; J2250; J2405; J3010; J7042; S5012